=== PATIENT | male | born 1945 | race Caucasian/White ===

== ENCOUNTER 2016-07-12 13:11 | Outpatient (CLI) | payer MEDICARE | END 2016-07-12 13:12 | disposition home or self-care (01) | DX: L03.115 Cellulitis of right lower limb (principal) ==

== ENCOUNTER 2016-07-19 | Outpatient (CLI) | payer MEDICARE | END 2016-07-19 11:43 | disposition critical access hospital (66) | DX: M79.661 Pain in right lower leg (principal) | CPT/HCPCS: A0425; A0429 ==

== ENCOUNTER 2016-07-19 12:03 | Inpatient (IN) | payer MEDICARE ==
[2016-07-19] MEDS ORDERED: HYDROmorphone 1 MG/ML SYRINGE IVP STA (12:33)
[2016-07-19] MEDS ORDERED: PIPERACILLIN/TAZOBACTAM 4.5 GM in SODIUM CHLORIDE 0.9% MINIBAG 100 ML IV STA (12:33)
[2016-07-19] MEDS ORDERED: VANCOMYCIN INJ 1 GM in SODIUM CHLORIDE 0.9% 250 ML IV STA (12:33)
[2016-07-19] MEDS ORDERED: HYDROmorphone 1 MG/ML SYRINGE ONE (12:39)
[2016-07-19] MEDS ORDERED: VANCOMYCIN 1 GM VIAL ONE ×2 (12:40→12:53)
[2016-07-19] MEDS ORDERED: IOPAMIDOL-300 100 ML VIAL IVP ONE (15:45)
[2016-07-19] MEDS ORDERED: PROCHLORPERAZINE 10 MG/2 ML VIAL IVP PRN (16:52)
[2016-07-19] MEDS ORDERED: oxyCODONE 5 MG TABLET PO PRN ×2 (16:52)
[2016-07-19] MEDS ORDERED: ONDANSETRON 4 MG/2 ML VIAL IVP PRN (16:52)
[2016-07-19] MEDS ORDERED: ACETAMINOPHEN 325 MG TABLET PO PRN (16:52)
[2016-07-19] MEDS ORDERED: SODIUM CHLORIDE FLUSH 0.9% 10 ML SYRINGE IVP PRN (16:52)
[2016-07-19] MEDS ORDERED: VANCOMYCIN INJ 1 GM in SODIUM CHLORIDE 0.9% 250 ML IV SCH (18:30)
[2016-07-19] MEDS ORDERED: POTASSIUM CHLORIDE 20 MEQ TABLET PO SCH (21:00)
[2016-07-19] MEDS: FUROSEMIDE 100 MG/10 ML VIAL IVP SCH (21:25)
[2016-07-19] MEDS: PIPERACILLIN/TAZOBACTAM 3.375 GM in SODIUM CHLORIDE 0.9% MINIBAG 100 ML IV SCH (21:25)
[2016-07-19] MEDS: CARVEDILOL 3.125 MG TABLET PO SCH (21:25)
[2016-07-19] MEDS: SODIUM CHLORIDE FLUSH 0.9% 10 ML SYRINGE IVP SCH (21:26)
[2016-07-19] MEDS: POTASSIUM CHLORIDE 20 MEQ TABLET PO SCH (23:05)
[2016-07-20] MEDS: PIPERACILLIN/TAZOBACTAM 3.375 GM in SODIUM CHLORIDE 0.9% MINIBAG 100 ML IV SCH ×4 (01:51→21:05)
[2016-07-20] MEDS: SODIUM CHLORIDE FLUSH 0.9% 10 ML SYRINGE IVP SCH ×3 (01:52→21:05)
[2016-07-20] MEDS: VANCOMYCIN INJ 1.75 GM in SODIUM CHLORIDE 0.9% 500 ML IV SCH ×2 (03:43→16:19)
[2016-07-20] MEDS: PANTOPRAZOLE 40 MG TABLET PO SCH (06:09)
[2016-07-20] MEDS: ENOXAPARIN 40 MG/0.4 ML SYRINGE SUBQ SCH (07:28)
[2016-07-20] MEDS ORDERED: ASPIRIN EC 325 MG TABLET PO SCH (09:00)
[2016-07-20] MEDS ORDERED: ALLOPURINOL 100 MG TABLET PO SCH (09:00)
[2016-07-20] MEDS ORDERED: LOSARTAN 50 MG TABLET PO SCH (09:00)
[2016-07-20] MEDS ORDERED: SPIRONOLACTONE 25 MG TABLET PO SCH (09:00)
[2016-07-20] MEDS: FUROSEMIDE 100 MG/10 ML VIAL IVP SCH ×2 (09:03→21:05)
[2016-07-20] MEDS: CARVEDILOL 3.125 MG TABLET PO SCH (09:04)
[2016-07-20] MEDS: POTASSIUM CHLORIDE 20 MEQ TABLET PO SCH ×2 (10:21→16:18)
[2016-07-20] MEDS: ASPIRIN EC 325 MG TABLET PO SCH (10:22)
[2016-07-20] MEDS: POLYETHYLENE GLYCOL 3350 17 GM PACKET PO SCH (10:22)
[2016-07-20] MEDS: LOSARTAN 50 MG TABLET PO SCH (10:22)
[2016-07-20] MEDS: ALLOPURINOL 100 MG TABLET PO SCH (10:22)
[2016-07-20] MEDS: HYDROcod/ACETAM 7.5 MG/325 MG TABLET PO PRN (10:23)
[2016-07-20] MEDS: SPIRONOLACTONE 25 MG TABLET PO SCH (10:23)
[2016-07-21] MEDS: PIPERACILLIN/TAZOBACTAM 3.375 GM in SODIUM CHLORIDE 0.9% MINIBAG 100 ML IV SCH ×4 (01:47→21:15)
[2016-07-21] MEDS: HYDROcod/ACETAM 7.5 MG/325 MG TABLET PO PRN ×3 (01:47→18:23)
[2016-07-21] MEDS: SODIUM CHLORIDE FLUSH 0.9% 10 ML SYRINGE IVP SCH ×3 (01:48→21:15)
[2016-07-21] MEDS: VANCOMYCIN INJ 1.75 GM in SODIUM CHLORIDE 0.9% 500 ML IV SCH (03:41)
[2016-07-21] MEDS: PANTOPRAZOLE 40 MG TABLET PO SCH (06:04)
[2016-07-21] MEDS: FUROSEMIDE 100 MG/10 ML VIAL IVP SCH (08:22)
[2016-07-21] MEDS: SIMETHICONE 40 MG/0.6 ML 30 ML BOTTLE PO PRN ×2 (08:31→17:34)
[2016-07-21] MEDS: ALLOPURINOL 100 MG TABLET PO SCH (10:31)
[2016-07-21] MEDS: LOSARTAN 50 MG TABLET PO SCH (10:32)
[2016-07-21] MEDS: ASPIRIN EC 325 MG TABLET PO SCH (10:32)
[2016-07-21] MEDS: SPIRONOLACTONE 25 MG TABLET PO SCH (10:35)
[2016-07-21] MEDS: POLYETHYLENE GLYCOL 3350 17 GM PACKET PO SCH (10:36)
[2016-07-21] MEDS: POTASSIUM CHLORIDE 20 MEQ TABLET PO SCH ×2 (10:36→17:34)
[2016-07-21] MEDS: ENOXAPARIN 40 MG/0.4 ML SYRINGE SUBQ SCH (10:39)
[2016-07-21] MEDS: MORPHINE 2 MG/ML SYRINGE IVP PRN (14:15)
[2016-07-22] MEDS: PIPERACILLIN/TAZOBACTAM 3.375 GM in SODIUM CHLORIDE 0.9% MINIBAG 100 ML IV SCH ×3 (01:08→13:35)
[2016-07-22] MEDS: MORPHINE 2 MG/ML SYRINGE IVP PRN (05:55)
[2016-07-22] MEDS: HYDROcod/ACETAM 7.5 MG/325 MG TABLET PO PRN ×2 (06:00→18:05)
[2016-07-22] MEDS: PANTOPRAZOLE 40 MG TABLET PO SCH (06:02)
[2016-07-22] MEDS: SODIUM CHLORIDE FLUSH 0.9% 10 ML SYRINGE IVP SCH ×3 (06:22→21:06)
[2016-07-22] MEDS: ENOXAPARIN 40 MG/0.4 ML SYRINGE SUBQ SCH (07:41)
[2016-07-22] MEDS: POLYETHYLENE GLYCOL 3350 17 GM PACKET PO SCH (08:14)
[2016-07-22] MEDS: ALLOPURINOL 100 MG TABLET PO SCH (08:15)
[2016-07-22] MEDS: LOSARTAN 50 MG TABLET PO SCH (08:16)
[2016-07-22] MEDS: ASPIRIN EC 325 MG TABLET PO SCH (08:16)
[2016-07-22] MEDS: SPIRONOLACTONE 25 MG TABLET PO SCH (08:17)
[2016-07-22] MEDS: POTASSIUM CHLORIDE 20 MEQ TABLET PO SCH ×2 (08:18→16:26)
[2016-07-22] MEDS ORDERED: FUROSEMIDE 100 MG/10 ML VIAL IVP SCH (09:00)
[2016-07-22] MEDS ORDERED: MORPHINE 10 MG/ML VIAL IM STA (11:43)
[2016-07-22] MEDS ORDERED: oxyCODONE 5 MG TABLET PO SCH (12:00)
[2016-07-22] MEDS: SIMETHICONE 40 MG/0.6 ML 30 ML BOTTLE PO PRN ×2 (12:27→18:05)
[2016-07-22] MEDS ORDERED: SILVER SULFADIAZINE CREAM 25 GM TUBE TOP SCH (21:00)
[2016-07-23] MEDS: ENOXAPARIN 40 MG/0.4 ML SYRINGE SUBQ SCH (07:01)
[2016-07-23] MEDS: PANTOPRAZOLE 40 MG TABLET PO SCH (07:04)
[2016-07-23] MEDS: SODIUM CHLORIDE FLUSH 0.9% 10 ML SYRINGE IVP SCH (07:05)
[2016-07-23] MEDS: HYDROcod/ACETAM 7.5 MG/325 MG TABLET PO PRN (07:54)
[2016-07-23] MEDS: SPIRONOLACTONE 25 MG TABLET PO SCH (08:11)
[2016-07-23] MEDS: ASPIRIN EC 325 MG TABLET PO SCH (08:11)
[2016-07-23] MEDS: ALLOPURINOL 100 MG TABLET PO SCH (08:12)
[2016-07-23] MEDS: LOSARTAN 50 MG TABLET PO SCH (08:12)
[2016-07-23] MEDS: POTASSIUM CHLORIDE 20 MEQ TABLET PO SCH (08:12)
[2016-07-23] MEDS: POLYETHYLENE GLYCOL 3350 17 GM PACKET PO SCH (08:15)
[2016-07-23] MEDS ORDERED: HYDROcod/ACETAM 7.5 MG/325 MG TABLET PO PRN (10:31)
[2016-07-23] MEDS ORDERED: LINEZOLID 600 MG TABLET PO SCH ×2 (11:00→13:30)
[2016-07-23] MEDS: SIMETHICONE 40 MG/0.6 ML 30 ML BOTTLE PO PRN (13:19)
== END 2016-07-23 17:15 | disposition home or self-care (01) | DRG 603 ==
DX: L03.119 Cellulitis of unspecified part of limb (principal); L03.115 Cellulitis of right lower limb; E87.1 Hypo-osmolality and hyponatremia; I13.0 Hypertensive heart and chronic kidney disease with heart failure and stage 1 through stage 4 chronic kidney disease, or unspecified chronic kidney disease; I73.9 Peripheral vascular disease, unspecified; I11.0 Hypertensive heart disease with heart failure; Z68.42 Body mass index [BMI] 45.0-49.9, adult; L03.116 Cellulitis of left lower limb; I50.9 Heart failure, unspecified; N18.9 Chronic kidney disease, unspecified; N40.0 Benign prostatic hyperplasia without lower urinary tract symptoms; I25.2 Old myocardial infarction; E66.01 Morbid (severe) obesity due to excess calories; M10.9 Gout, unspecified; Z22.39 Carrier of other specified bacterial diseases; Z79.82 Long term (current) use of aspirin; I87.8 Other specified disorders of veins; N40.1 Benign prostatic hyperplasia with lower urinary tract symptoms; N39.498 Other specified urinary incontinence; R33.8 Other retention of urine

== ENCOUNTER 2016-07-29 14:25 | Outpatient (CLI) | payer MEDICARE | END 2016-07-29 14:26 | disposition home or self-care (01) | DX: S81.802A Unspecified open wound, left lower leg, initial encounter (principal) ==

== ENCOUNTER 2016-08-20 10:15 | Outpatient (CLI) | payer MEDICARE | END 2016-08-20 10:16 | disposition home or self-care (01) | DX: Z51.5 Encounter for palliative care (principal); I13.0 Hypertensive heart and chronic kidney disease with heart failure and stage 1 through stage 4 chronic kidney disease, or unspecified chronic kidney disease; N18.9 Chronic kidney disease, unspecified; I50.9 Heart failure, unspecified; G89.29 Other chronic pain; I83.008 Varicose veins of unspecified lower extremity with ulcer other part of lower leg; L97.811 Non-pressure chronic ulcer of other part of right lower leg limited to breakdown of skin; L97.821 Non-pressure chronic ulcer of other part of left lower leg limited to breakdown of skin; B37.2 Candidiasis of skin and nail; I48.91 Unspecified atrial fibrillation; F32.9 Major depressive disorder, single episode, unspecified; R05 Cough; E66.01 Morbid (severe) obesity due to excess calories; I73.9 Peripheral vascular disease, unspecified; I25.2 Old myocardial infarction; Z96.0 Presence of urogenital implants; Z79.82 Long term (current) use of aspirin; Z91.81 History of falling ==

== ENCOUNTER 2016-08-20 10:45 | Outpatient (CLI) | payer MEDICARE | END 2016-08-20 10:46 | disposition home or self-care (01) | DX: S81.802A Unspecified open wound, left lower leg, initial encounter (principal) ==

== ENCOUNTER 2016-08-23 12:08 | Outpatient (CLI) | payer MEDICARE | END 2016-08-23 12:09 | disposition home or self-care (01) | DX: N39.0 Urinary tract infection, site not specified (principal) ==

== ENCOUNTER 2016-08-30 08:00 | Outpatient (CLI) | payer MEDICARE | END 2016-08-30 08:01 | DX: L03.115 Cellulitis of right lower limb (principal) ==

== ENCOUNTER 2016-08-30 10:45 | Day surgery (SDC) | payer MEDICARE ==
[2016-08-30] MEDS ORDERED: cefTRIAXone 2 GM VIAL ONE (12:15)
== END 2016-08-30 10:46 | disposition home or self-care (01) ==
PROC: 02HV33Z Insertion of Infusion Device into Superior Vena Cava, Percutaneous Approach (ICD-10-PCS; principal; 2016-08-30 11:00)
DX: L03.116 Cellulitis of left lower limb (principal)
CPT/HCPCS: 36569; C1751

== ENCOUNTER 2016-09-06 11:45 | Outpatient (CLI) | payer MEDICARE | END 2016-09-06 11:46 | disposition home or self-care (01) | DX: L03.115 Cellulitis of right lower limb (principal) ==

== ENCOUNTER 2016-09-08 15:05 | Outpatient (CLI) | payer MEDICARE | END 2016-09-08 15:06 | DX: N39.0 Urinary tract infection, site not specified (principal) ==

== ENCOUNTER 2016-09-09 11:00 | Outpatient (CLI) | payer MEDICARE | END 2016-09-09 23:59 | DX: Z51.5 Encounter for palliative care (principal); I50.9 Heart failure, unspecified; I42.9 Cardiomyopathy, unspecified; R06.01 Orthopnea; M25.511 Pain in right shoulder; G89.29 Other chronic pain; M15.0 Primary generalized (osteo)arthritis; B37.2 Candidiasis of skin and nail; F43.21 Adjustment disorder with depressed mood; E66.01 Morbid (severe) obesity due to excess calories; L03.116 Cellulitis of left lower limb; L03.115 Cellulitis of right lower limb; Z79.891 Long term (current) use of opiate analgesic; I27.2 Other secondary pulmonary hypertension; I48.91 Unspecified atrial fibrillation; N18.9 Chronic kidney disease, unspecified; Z91.81 History of falling; Z96.0 Presence of urogenital implants; I83.009 Varicose veins of unspecified lower extremity with ulcer of unspecified site; L97.909 Non-pressure chronic ulcer of unspecified part of unspecified lower leg with unspecified severity ==

== ENCOUNTER 2016-09-13 15:55 | Outpatient (CLI) | payer MEDICARE | END 2016-09-13 15:56 | DX: L03.115 Cellulitis of right lower limb (principal) ==

== ENCOUNTER 2016-09-15 10:25 | Outpatient (CLI) | payer MEDICARE | END 2016-09-15 10:26 | disposition home or self-care (01) | DX: I51.7 Cardiomegaly (principal); Z95.828 Presence of other vascular implants and grafts ==

== ENCOUNTER 2016-09-20 10:50 | Outpatient (CLI) | payer MEDICARE | END 2016-09-20 23:59 | disposition home or self-care (01) | DX: L03.115 Cellulitis of right lower limb (principal) ==

== ENCOUNTER 2016-09-27 11:21 | Outpatient (CLI) | payer MEDICARE | END 2016-09-27 23:59 | disposition home or self-care (01) | DX: R74.8 Abnormal levels of other serum enzymes (principal); E78.1 Pure hyperglyceridemia; L03.115 Cellulitis of right lower limb; S81.809D Unspecified open wound, unspecified lower leg, subsequent encounter ==

== ENCOUNTER 2016-09-29 08:00 | Outpatient (CLI) | payer MEDICARE ==
[2016-09-29 19:45] LABS: BILIRUBIN,URINE NEGATIVE (NEGATIVE); PH,URINE 5.5 PH (5.0-7.5)
[2016-09-29 20:26] LABS: UA w/ MICROSCOPIC CHARGE YES
[2016-09-29 20:28] LABS: BASOPHILS % (AUTO) 0.6 %; EOSINOPHILS # (AUTO) 0.1 10^3/uL (0.0-0.7); EOSINOPHILS % (AUTO) 1.4 %; HCT - HEMATOCRIT 31.6 % (42.0-52.0); HGB - HEMOGLOBIN 10.2 g/dL (14.0-18.0); LYMPHOCYTES # (AUTO) 0.7 10^3/uL (1.5-3.5); LYMPHOCYTES % (AUTO) 11.1 %; MEAN CORPUSCULAR HEMOGLOBIN 30.7 pg (27.0-31.0); MEAN CORPUSCULAR HGB CONC 32.4 g/dL (32.0-36.0); MEAN CORPUSCULAR VOLUME 94.8 fL (80.0-94.0); MEAN PLATELET VOLUME 10.4 fL (7.4-11.4); MONOCYTES # (AUTO) 0.4 10^3/uL (0.0-1.0); MONOCYTES % (AUTO) 7.4 %; NEUTROPHILS # (AUTO) 4.7 10^3/uL (1.5-6.6); NEUTROPHILS % (AUTO) 79.5 %; RED BLOOD COUNT 3.34 10^6/uL (4.70-6.10); RED CELL DISTRIBUTION WIDTH 18.8 % (12.0-15.0); UNCORRECTED WHITE BLOOD COUNT 5.9 x10^3/uL; WHITE BLOOD COUNT 5.9 x10^3/uL (4.8-10.8)
[2016-09-29 20:31] LABS: UR CULTURE IF IND INDICATED; WBC,URINE 0-3 /HPF (0-3)
== END 2016-09-29 08:01 | disposition home or self-care (01) ==
LOC: LAB.R 08:00
PROVIDERS: ATTEND Family Medicine
DX: L03.115 Cellulitis of right lower limb (principal); N39.0 Urinary tract infection, site not specified
CPT/HCPCS: 81001; 81003; 85025; 85651; 87086

== ENCOUNTER 2016-10-04 14:45 | Outpatient (CLI) | payer MEDICARE | END 2016-10-04 14:46 | disposition home or self-care (01) | DX: L03.115 Cellulitis of right lower limb (principal) ==

== ENCOUNTER 2016-10-07 11:00 | Outpatient (CLI) | payer MEDICARE ==
--- NOTE | 2016-10-11 11:17 | CONSULTATION NOTE ---
DATE OF CONSULTATION: 10/07/2016 00:00:00 REQUESTING PROVIDER: Mirza Mcleod MD. TIME OF VISIT 11:15 to 12 noon. TOPIC: Followup palliative care consult. Thank you, Dr. Mcleod, for asking the palliative care consult service to be involved in the care of yo ur patient. I am asked to forward the goals of care discussion and provide support for symptom manage ment. The patient is seen in his home setting secondary to considerable and taxing effort to leave [facility] home related to his fatigue, dyspnea, chronic pain, and morbid obesity. BRIEF HISTORY OF PRESENT ILLNESS UPDATE: This is a 71-year-old gentleman who has multiple significant comorbidities continuing to struggle with lower extremity edema, lower extremity wounds that he is n ow on yet another round of antibiotics, Bactrim, for, increasing shortness of breath and dyspnea, dec reased appetite and anorexia, has now acute discomfort in his right shoulder as well as his left. He had on 09/08 injured his right shoulder pulling the recliner lever. This has continued to exacerbate to the point where he is no longer able to lift his arm. The pain is fairly excruciating and he has j ust been to an urgent care visit to the [facility]. They had thought it was most li narciso tendinitis and he is scheduled for a shoulder x-ray, as well as followup with orthopedic surgeon . He remains very reticent to make any kind of changes. This is both financial and also of his nature . 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 He is taking his hydrocodone 10/325 mg 1 tab about every 4-5 hours. At times when it is really acute he takes it more often, but dislikes the activating feeling of confusi on of this side effect. He is hopeful there will be something to offer as far as intervention for his pain, as well as his lack of mobility. He has also started with occupational therapy. The patient also has multiple comorbidities with longstanding chronic kidney disease, congestive hear t failure, atrial fibrillation and all somewhat complicated because of his increasing need for diuret ics. He does have an appointment on 10/[address] Renee. They did not need any further labs or echo . SYMPTOM BURDEN: He continues to rate his pain fairly high 9/10, his fatigue 8/10, still having diffic ulty with appetite and taste changes, continues with dyspnea which is limiting as far as activity, de pression and anxiety scores high and has had intermittent diarrhea versus constipation. CODE STATUS: THE PATIENT REMAINS FULL CODE. PLEASE SEE PALLIATIVE CARE DISCUSSION BELOW. BRIEF SOCIAL HISTORY: The patient is , is attempting to live independently though this is bec oming more complicated. He has hired a new caregiver, but there has been some language difficulties, as well as his concern about cost. He is now getting assistance from the home health aide for bathing . He has recently been in touch with his son who is aware currently of the patient's decline and frag ility. He has very limited support other than the home health nurses who are coming in frequently. He continues to struggle with financial stresses because he has no coverage for medication. REVIEW OF SYSTEMS: HEENT: Reports nasal congestion, frequent nosebleeds at least daily and increased running in the a.m. He has some mild hearing loss. CARDIOVASCULAR: He does have orthopnea and exertional dyspnea, is needing to sleep up in the recliner , not only for managing, but also breathing. RESPIRATORY: Has some intermittent cough, is quite tachypnea at rest. GASTROINTESTINAL: He is morbidly obese. He has had more difficulty with meal prep. He has early satie ty. GENITOURINARY: He has a Lara catheter longstanding colonized. When he starts getting in trouble he h as increased bladder spasms. NEUROLOGIC: He does have intermittent numbness and tingling down his legs, now down his arms, right g reater than left. PSYCHIATRIC: Admits to depression, anxiety and poor quality of life. ENDOCRINE: History of hyperglycemia and hypothyroidism is unclear. HEMATOLOGIC/IMMUNOLOGIC: He is on aspirin. He bruises quite easily, has multiple hematomas, intermitt ent nosebleeds. In the past has had thrombocytopenia and has had frequent infections. Still has a PIC C line and is on currently oral Bactrim. PHYSICAL EXAMINATION: GENERAL APPEARANCE: The patient does appear somewhat sallow and fatigued in appearance. He is tachypn eic. He is quite uncomfortable exhibiting pain behaviors. EYES: With periorbital edema. ENT: Mucous membranes are moist. NECK: Somewhat thickened. Trachea is midline. No JVD. RESPIRATORY: Breath sounds diminished throughout. CARDIOVASCULAR: Temperature is 97.2. ABDOMEN: Quite obese, large pannus. He declined letting me examine his folds. He has currently now re verted back to Zeeshan cream with good results. SKIN: His lower extremities have dressings intact. I have looked at the pictures, they are improving though unfortunately he developed yet another large right lower extremity blister. EXTREMITIES: He does have lower extremity edema, longstanding venous stasis, peripheral artery diseas e. Home health nurses currently providing t.i.d. dressing changes. PALLIATIVE CARE DISCUSSION: Who is present: Myself and the patient. He is currently distressed with h is increased pain, immobility, and difficulty meeting his ADLs. He does feel somewhat overwhelmed as if there is really not a good answer, which I suspect there is not. He has minimal community and soci al support and so continues to struggle with getting his day-to-day needs met. Currently does appear safe though in his current situation. He reports he tends to just "roll with the punches." He perceiv es his situation as "whack a mole" meaning that just as one thing settles down, another something pop s up. He is feeling somewhat distressed as his options are limited and his health problems keep multi plying. He does not want to visit as far as the context of further advanced directives. He has update d his son, Markos Curiel, recently about his current situation. IMPRESSION: This is a 71-year-old gentleman who continues to have somewhat unrealistic expectations a s far as the seriousness of his illness. He remains quite frail and fragile with multiple comorbiditi es, ongoing complications related to his heart failure, wounds and increasing functional decline now complicated by an exacerbation of his right shoulder and left shoulder pain. Will continue to provide conversation regarding quality of life, counseling for depression and anxiety and support transition s of care, different decision points. Currently is unwilling to explore further or different options. RECOMMENTDATIONS/COUNSELING DONE 1. Acute on chronic pain secondary to ongoing progressive degenerative disk disease, as well as an ac chalk[place] right shoulder injury. It will be of interest if he is a candidate for any orthopedic interventio n, but possibly cortisone shots. Unfortunately, because of his weight, living independently, he needs to use his right shoulder and left and makes it more complicated to get his care needs met. He is cu rrently taking the hydrocodone 10 mg 4-5 tabs in 24 hours. Does not like the activating component of this. Did discuss actually methadone given his financial stressors, the acuity of his pain and his di slike of side effects of opioids. Did initiate education regarding this, but the patient remains quit e reticent of making any changes. We did discuss if they were not able to offer further intervention or orthopedic support, that we could revisit this if he was interested. 2. Depression, currently not being treated. The patient is willing to explore his current situation, is reflecting on his current quality of life, is feeling quite overwhelmed. Did introduce the thought of maybe further followup regarding CHRIS even if he did not qualify as far as total support, charlie alfaro at a spend down for further Medicaid support for medications. He again remains reticent to make any changes and does not think he will qualify. Would consider offering CREDIT COLLECTIONS CLERK for follow up. 3. Advanced care planning. He wants to keep his FULL CODE, FULL TREATMENT, but is recognizing the fra gility of his status and his ongoing building healthcare problems. Will continue to revisit this, par ticularly if he transitions into another setting or has another acute hospitalization. TIME SPENT: Forty-five minutes with greater than 50% of this done in counseling and coordination of c are. The patient really uninterested in trying any other pain management options, counseling for depr ession. The patient currently is awaiting the outcome of several specialists to further make decision s about his health care status. Will continues to stay available and see the patient as requested. JOB #: [id number] EXT JOB #:[id number]
== END 2016-10-07 11:01 | disposition home or self-care (01) ==
LOC: PC 11:00
PROVIDERS: ATTEND Nurse Practitioner Adult Health
DX: Z51.5 Encounter for palliative care (principal); G89.29 Other chronic pain; M25.512 Pain in left shoulder; M25.511 Pain in right shoulder; F32.9 Major depressive disorder, single episode, unspecified; R53.83 Other fatigue; R06.00 Dyspnea, unspecified; E66.01 Morbid (severe) obesity due to excess calories; M17.0 Bilateral primary osteoarthritis of knee; N18.9 Chronic kidney disease, unspecified; I50.9 Heart failure, unspecified; I48.91 Unspecified atrial fibrillation; F41.9 Anxiety disorder, unspecified; R19.7 Diarrhea, unspecified; K59.00 Constipation, unspecified; R09.81 Nasal congestion; R04.0 Epistaxis; R05 Cough; R68.81 Early satiety; Z79.82 Long term (current) use of aspirin; R60.0 Localized edema; I87.8 Other specified disorders of veins; I73.9 Peripheral vascular disease, unspecified
CPT/HCPCS: 99349

== ENCOUNTER 2016-10-09 09:31 | Outpatient (CLI) | payer MEDICARE | END 2016-10-09 09:32 | disposition critical access hospital (66) | LOC: EMS 09:31 | PROVIDERS: ATTEND Surgery | DX: S90.521A Blister (nonthermal), right ankle, initial encounter (principal); R04.0 Epistaxis; X58.XXXA Exposure to other specified factors, initial encounter | CPT/HCPCS: A0425; A0429 ==

== ENCOUNTER 2016-10-09 09:51 | Emergency (ER) | payer MEDICARE ==
--- NOTE | 2016-10-09 10:11 | ED Physician Documentation ---
History of Present Illness - Stated complaint Stated Complaint: ANKLE BLISTER/ NOSE BLEED - Chief complaint Chief Complaint: Wound - Additonal information Additional information: hx from pt PMD and home health 71 male long standing infections ajit LE was admitted X 5 days in the last month has home health has a PICC and gets rocephin 2 g QD and bactrim DS PO BID today the bullae on his R medial mall broke open and he was instructed to report to the ER no fever Review of Systems Constitutional: denies: Fever, Chills Cardiac: denies: Chest pain / pressure Respiratory: denies: Dyspnea Skin: reports: Lesions Endocrine: denies: Easy bruising / bleeding Immunocompromised: denies: Immunocompromised PD PAST MEDICAL HISTORY - Past Medical History Cardiovascular: Congestive heart failure, Hypertension, Angina, [place], Atrial fibrillation Derm: Other - Present Medications Home Medications: Ambulatory Orders Medication Instructions Recorded Confirmed Allopurinol [Zyloprim] 300 mg PO DAILY 10/09/16 10/09/16 Aspirin 325 mg PO DAILY 10/09/16 10/09/16 Furosemide [Lasix] 80 mg PO DAILY 10/09/16 10/09/16 Losartan Potassium 25 mg PO BID 10/09/16 10/09/16 Potassium Chloride [Klor-Con M20] 20 meq PO BID 10/09/16 10/09/16 Spironolactone 100 mg PO DAILY 10/09/16 10/09/16 - Allergies Allergies/Adverse Reactions: Allergies Allergy/AdvReac Type Severity Reaction Status Date / Time Unable to Assess Allergy Verified 10/09/16 10:09 - Social History Does the pt smoke?: No Smoking Status: Never smoker Does the pt drink ETOH?: No Does the pt have substance abuse?: No - Immunizations Immunizations are current?: Yes PD ED PE NORMAL - Vitals Vital signs reviewed: Yes - Cardiac Cardiac: RRR - Respiratory Respiratory: No respiratory distress, Clear bilaterally - Extremities Extremities: Other (ajit LE edematous with open wounds erythema to medial ankle and foot R LE, both legs warm, large falccid bullae R medial mall draining clear fluid which was cultured) - Neuro Neuro: No motor deficit, No sensory deficit Results - Vitals Vitals: Vital Signs - 24 hr 10/09/16 10/09/16 09:53 10:03 Temperature 36.7 C Heart Rate 88 Respiratory 22 22 Rate Blood Pressure 138/86 H O2 Saturation 97 Oxygen O2 Source Room air PD MEDICAL DECISION MAKING - ED course ED course: pt has a PICC gets IV ab has been admitted for same and is under care of home health for wound care pt does not know what the ER was supposed to add to this care, called home health and there is no one documentation engineer this weekend to discuss the case, called PMD office and covering doc does not know either so cultured drainages (which was clear serous fluid) and rebandaged legs and dced Departure - Departure Disposition: 01 Home, Self Care Clinical Impression: Visit for wound check Condition: Good Follow-Up: Sunil Mcleod MD [Provider Admit Priv/Credential] - Comments: Continue your home IV antibiotics and the wound care provided by home health - the fluid draining from the blister has been cultured and your PMD can check the results which should be available by Tuesday
[2016-10-09 11:10] VITALS: BP 142/62
== END 2016-10-09 11:20 | disposition home or self-care (01) ==
LOC: ED 09:51 → MERGE 09:51 → ED 11:20
DX: L98.9 Disorder of the skin and subcutaneous tissue, unspecified (principal); I11.0 Hypertensive heart disease with heart failure; I50.9 Heart failure, unspecified; I25.2 Old myocardial infarction; I48.91 Unspecified atrial fibrillation
CPT/HCPCS: 87070; 87205; 99282; 99283

== ENCOUNTER 2016-10-11 10:43 | Outpatient (CLI) | payer MEDICARE ==
[2016-10-11 19:51] LABS: ALBUMIN/GLOBULIN RATIO 1.3 (1.0-2.2); BILIRUBIN,TOTAL 0.9 mg/dL (0.2-1.0); CALCIUM 8.9 mg/dL (8.5-10.3); CREATININE 1.9 mg/dL (0.6-1.2); POTASSIUM 5.4 mmol/L (3.5-5.0); TOTAL PROTEIN 7.3 g/dL (6.7-8.2)
[2016-10-11 20:06] LABS: BASOPHILS % (AUTO) 0.8 %; EOSINOPHILS # (AUTO) 0.1 10^3/uL (0.0-0.7); EOSINOPHILS % (AUTO) 1.9 %; HCT - HEMATOCRIT 29.1 % (42.0-52.0); HGB - HEMOGLOBIN 9.5 g/dL (14.0-18.0); LYMPHOCYTES # (AUTO) 0.7 10^3/uL (1.5-3.5); MEAN CORPUSCULAR HEMOGLOBIN 30.9 pg (27.0-31.0); MEAN CORPUSCULAR HGB CONC 32.7 g/dL (32.0-36.0); MEAN CORPUSCULAR VOLUME 94.3 fL (80.0-94.0); MEAN PLATELET VOLUME 10.6 fL (7.4-11.4); MONOCYTES # (AUTO) 0.4 10^3/uL (0.0-1.0); MONOCYTES % (AUTO) 8.9 %; NEUTROPHILS # (AUTO) 3.3 10^3/uL (1.5-6.6); NEUTROPHILS % (AUTO) 73.4 %; NUCLEATED RED BLOOD CELLS AUTO 0.1 /100WBC; RED BLOOD COUNT 3.08 10^6/uL (4.70-6.10); RED CELL DISTRIBUTION WIDTH 18.7 % (12.0-15.0); UNCORRECTED WHITE BLOOD COUNT 4.5 x10^3/uL; WHITE BLOOD COUNT 4.5 x10^3/uL (4.8-10.8)
== END 2016-10-11 23:59 | disposition home or self-care (01) ==
LOC: LAB.R 10:43
PROVIDERS: ATTEND Family Medicine
DX: L03.115 Cellulitis of right lower limb (principal)
CPT/HCPCS: 80053; 85025; 85651

== ENCOUNTER 2016-10-11 12:28 | Outpatient (CLI) | payer MEDICARE ==
--- NOTE | 2016-10-11 19:04 | XRAY Report ---
BILATERAL SHOULDERS, THREE VIEWS: 10/11/2016 CLINICAL HISTORY: A 71-year-old with bicipital tendinitis osteoarthritis involving the shoulders. RIGHT SHOULDER, THREE VIEWS: Moderate degree of osteoarthritis is seen involving the right AC joint. Prominent periarticular spur formation is seen at the right AC joint with a moderate degree of joint space narrowing. Small right subacromial spur is noted. Mild bony eburnation and subchondral cyst formation is seen in and about the greater tuberosity of the right humeral head. These findings are suggestive of impingement syndrome. Right glenohumeral joint appears normal. PICC line is seen in place entering the vascular system via the right antecubital vein and extending into the superior vena cava at its junction with the right atrium. IMPRESSION: 1. MODERATE DEGREE OF OSTEOARTHRITIS OF THE RIGHT AC JOINT. 2. SMALL SUBACROMIAL SPUR IS NOTED IN ASSOCIATION WITH MILD BONY EBURNATION AND SUBCHONDRAL CYST FORMATION INVOLVING THE GREATER TUBEROSITY OF THE RIGHT HUMERAL HEAD. THESE FINDINGS ARE SUGGESTIVE OF IMPINGEMENT SYNDROME. 3. PICC LINE IS SEEN IN PLACE ENTERING THE VASCULAR SYSTEM VIA THE RIGHT ANTECUBITAL VEIN AND HAVING ITS TIP EXTENDING INTO THE REGION OF THE SUPERIOR VENA CAVA AT ITS JUNCTION WITH THE RIGHT ATRIUM. LEFT SHOULDER, THREE VIEWS: Moderate degree of osteoarthritis is seen involving the left AC joint. Moderate degree of joint space narrowing is noted with associated mild periarticular spur formation. Prominent subacromial spur is noted in association with sclerosis. There is also either prominent spurring extending from the lateral aspect of the acromion or myositis ossificans within the adjacent soft tissues silhouetting the lateral aspect of the left humeral head and adjacent superior aspect of the greater tuberosity. There is prominent associated bony eburnation along the lateral aspect of the greater tuberosity. There is also decreased distance between the left humeral head and the acromion in association with minimal superior subluxation of the left humeral head. Combination of findings is consistent with plain film eminence of chronic left rotator cuff tear. IMPRESSION: 1. MODERATE DEGREE OF OSTEOARTHRITIS IS NOTED INVOLVING THE LEFT AC JOINT. 2. EXTREMELY PROMINENT LEFT SUBACROMIAL SPUR. THERE IS ALSO EITHER A PROMINENT LATERAL SPUR EXTENDING FROM THE ACROMION AND/OR MYOSITIS OSSIFICANS WITHIN THE ADJACENT SOFT TISSUES. 3. SIGNIFICANT DECREASED DISTANCE BETWEEN THE LEFT HUMERAL HEAD AND ACROMION WITH MILD SUPERIOR SUBLUXATION OF THE LEFT HUMERAL HEAD. FINDINGS ARE INDIRECT SIGNS OF CHRONIC LEFT ROTATOR CUFF TEAR. JOB #: [id number] EXT JOB #: [id number] MISSY
== END 2016-10-11 12:29 | disposition home or self-care (01) ==
LOC: DI 12:28
PROVIDERS: ATTEND Family Medicine
DX: M19.011 Primary osteoarthritis, right shoulder (principal); M19.012 Primary osteoarthritis, left shoulder; M85.411 Solitary bone cyst, right shoulder; M25.711 Osteophyte, right shoulder; S43.002A Unspecified subluxation of left shoulder joint, initial encounter; M25.712 Osteophyte, left shoulder; L03.115 Cellulitis of right lower limb
CPT/HCPCS: 80053; 85025; 85651

== ENCOUNTER 2016-10-19 08:00 | Outpatient (CLI) | payer MEDICARE ==
[2016-10-19 19:20] LABS: BASOPHILS % (AUTO) 0.7 %; EOSINOPHILS # (AUTO) 0.1 10^3/uL (0.0-0.7); EOSINOPHILS % (AUTO) 2.6 %; HGB - HEMOGLOBIN 9.9 g/dL (14.0-18.0); LYMPHOCYTES # (AUTO) 0.6 10^3/uL (1.5-3.5); LYMPHOCYTES % (AUTO) 12.3 %; MEAN CORPUSCULAR HEMOGLOBIN 31.7 pg (27.0-31.0); MEAN CORPUSCULAR VOLUME 93.3 fL (80.0-94.0); MEAN PLATELET VOLUME 9.8 fL (7.4-11.4); MONOCYTES # (AUTO) 0.4 10^3/uL (0.0-1.0); MONOCYTES % (AUTO) 8.4 %; RED BLOOD COUNT 3.11 10^6/uL (4.70-6.10); RED CELL DISTRIBUTION WIDTH 18.1 % (12.0-15.0); UNCORRECTED WHITE BLOOD COUNT 5.3 x10^3/uL; WHITE BLOOD COUNT 5.3 x10^3/uL (4.8-10.8)
[2016-10-19 19:26] LABS: BILIRUBIN,TOTAL 0.9 mg/dL (0.2-1.0); CALCIUM 9.2 mg/dL (8.5-10.3); CREATININE 1.4 mg/dL (0.6-1.2); POTASSIUM 4.9 mmol/L (3.5-5.0); TOTAL PROTEIN 7.5 g/dL (6.7-8.2)
== END 2016-10-19 08:01 | disposition home or self-care (01) ==
LOC: LAB.R 08:00
PROVIDERS: ATTEND Family Medicine
DX: L03.115 Cellulitis of right lower limb (principal)
CPT/HCPCS: 80053; 85025; 85651

== ENCOUNTER 2016-11-01 10:43 | Outpatient (CLI) | payer MEDICARE | END 2016-11-01 10:44 | disposition home or self-care (01) | LOC: LAB.R 10:43 | PROVIDERS: ATTEND Family Medicine | DX: S81.809D Unspecified open wound, unspecified lower leg, subsequent encounter (principal) | CPT/HCPCS: 87070; 87077; 87205 ==

== ENCOUNTER 2016-11-26 12:23 | Outpatient (CLI) | payer MEDICARE | END 2016-11-26 12:24 | disposition critical access hospital (66) | DX: S51.802A Unspecified open wound of left forearm, initial encounter (principal); W22.8XXA Striking against or struck by other objects, initial encounter; Y92.030 Kitchen in apartment as the place of occurrence of the external cause | CPT/HCPCS: A0425; A0429 ==

== ENCOUNTER 2016-11-26 12:48 | Emergency (ER) | payer MEDICARE ==
[2016-11-26] MEDS ORDERED: LIDOCAINE-EPINEPH-TETRACAINE 3 ML SYRINGE TOP ONE (13:31)
[2016-11-26] MEDS ORDERED: TETANUS/DIPHTHERIA/PERTUSSIS 0.5 ML SYRINGE IM ONE ×2 (13:37→14:00)
--- NOTE | 2016-11-26 13:38 | ED Physician Documentation ---
PD HPI UPPER EXT INJURY - Stated complaint Stated Complaint: WOUND - Chief complaint Chief Complaint: Ext Problem - History obtained from History obtained from: Patient, EMS - History of Present Illness Location: Other (Sustained a skin tear to left forearm yesterday which continued to ooze and bleeding got worse as far as pain goes today when it was redressed by home health. Tetanus is unknown.) Review of Systems Constitutional: denies: Fever, Chills GI: denies: Abdominal Pain, Nausea, Vomiting Musculoskeletal: denies: Neck pain, Back pain PD PAST MEDICAL HISTORY - Past Medical History Past Medical History: Yes Cardiovascular: Atrial fibrillation, [place], Angina, Congestive heart failure, Peripheral Vascular Disease, Hypertension Endocrine/Autoimmune: None GI: None : Chronic bladder infection, Indwelling catheter HEENT: Glaucoma Psych: None Musculoskeletal: Rheumatoid arthritis, Gout, Fatigue Derm: Other - Past Surgical History Past Surgical History: Yes HEENT: Cataracts - Present Medications Home Medications: Ambulatory Orders Medication Instructions Recorded Confirmed Allopurinol 300 mg PO DAILY 09/22/12 11/26/16 Potassium Chloride 20 meq PO BID 01/26/16 11/26/16 Spironolactone 100 mg PO DAILY 01/26/16 11/26/16 Hydrocodone/Acetaminophen 2 tab PO TID 07/20/16 11/26/16 [Hydrocodon-Acetaminophn 10-325] Furosemide [Lasix] 80 mg PO DAILY 10/09/16 11/26/16 Potassium Chloride [Klor-Con M20] 20 meq PO BID 10/09/16 11/26/16 - Allergies Allergies/Adverse Reactions: Allergies Allergy/AdvReac Type Severity Reaction Status Date / Time nitrofurantoin Allergy Mild Rash Verified 07/19/16 12:05 lorazepam Allergy Unknown UNKNOWN Verified 07/19/16 12:05 cephalexin monohydrate * Allergy Hives Verified 07/19/16 12:05 [From Keflex] - Social History Does the pt smoke?: No Smoking Status: Never smoker Does the pt drink ETOH?: No Does the pt have substance abuse?: No - Immunizations Immunizations are current?: Yes - POLST Patient has POLST: Yes PD ED PE NORMAL - Vitals Vital signs reviewed: Yes - General General: Alert and oriented X 3, No acute distress - Extremities Extremities: Other (There is a jagged but very shallow skin tear to the posterior left mid forearm without underlying bony tenderness or limited range of motion. 2 syringes of lidocaine/epinephrine/tetracaine were used during examination for pain control.) - Neuro Neuro: Alert and oriented X 3, Normal speech - Psych Psych: Normal mood, Normal affect Results - Vitals Vitals: Vital Signs - 24 hr 11/26/16 11/26/16 12:48 14:37 Temperature 36.2 C L Heart Rate 75 74 Respiratory 18 18 Rate Blood Pressure 125/56 L 133/58 H O2 Saturation 100 99 Oxygen O2 Source Room air Departure - Departure Disposition: 01 Home, Self Care Clinical Impression: Skin tear of left forearm without complication Qualifiers: Encounter type: initial encounter Qualified Code(s): S51.812A - Laceration without foreign body of left forearm, initial encounter Condition: Good Record reviewed to determine appropriate education?: Yes Instructions: ED Laceration Ext Sutr Stap Tape Comments: Keep current dressing on until home health can address it again on Tuesday. Discharge Date/Time: 11/26/16 14:44
[2016-11-26 14:37] VITALS: BP 133/58
== END 2016-11-26 14:44 | disposition home or self-care (01) ==
LOC: EDUNIT# → ED 12:48
DX: S51.812A Laceration without foreign body of left forearm, initial encounter (principal); Z23 Encounter for immunization; I25.2 Old myocardial infarction; I50.9 Heart failure, unspecified; I48.91 Unspecified atrial fibrillation; I11.0 Hypertensive heart disease with heart failure; M10.9 Gout, unspecified
CPT/HCPCS: 90471; 99283

== ENCOUNTER 2016-12-01 14:45 | Outpatient (CLI) | payer MEDICARE ==
[2016-12-01 19:42] LABS: BILIRUBIN,URINE NEGATIVE (NEGATIVE)
[2016-12-01 19:52] LABS: UA w/ MICROSCOPIC CHARGE YES
[2016-12-01 20:57] LABS: WBC,URINE >25 /HPF (0-3)
[2016-12-01 20:58] LABS: UR CULTURE IF IND NOT INDICATED
== END 2016-12-01 14:46 | disposition home or self-care (01) ==
LOC: LAB.R 14:45
PROVIDERS: ATTEND Family Medicine
DX: N39.0 Urinary tract infection, site not specified (principal)
CPT/HCPCS: 81001; 81003; 87086

== ENCOUNTER 2016-12-03 10:45 | Outpatient (CLI) | payer MEDICARE | END 2016-12-03 10:46 | disposition home or self-care (01) | LOC: LAB.R 10:45 | PROVIDERS: ATTEND Family Medicine | DX: N39.0 Urinary tract infection, site not specified (principal) | CPT/HCPCS: 87077; 87086 ==

== ENCOUNTER 2016-12-05 16:05 | Outpatient (CLI) | payer MEDICARE | END 2016-12-05 16:06 | disposition EMS.NT | LOC: EMS 16:05 | PROVIDERS: ATTEND Surgery | DX: Z03.89 Encounter for observation for other suspected diseases and conditions ruled out (principal); W18.39XA Other fall on same level, initial encounter; Y92.031 Bathroom in apartment as the place of occurrence of the external cause ==

== ENCOUNTER 2016-12-09 08:20 | Outpatient (CLI) | payer MEDICARE | END 2016-12-09 08:21 | disposition home or self-care (01) | LOC: DI 08:20 | PROVIDERS: ATTEND Internal Medicine Cardiovascular Disease | DX: R60.0 Localized edema (principal); R06.09 Other forms of dyspnea; I42.9 Cardiomyopathy, unspecified; I08.1 Rheumatic disorders of both mitral and tricuspid valves; I77.810 Thoracic aortic ectasia | CPT/HCPCS: 93306 ==

== ENCOUNTER 2016-12-22 08:00 | Outpatient (CLI) | payer MEDICARE ==
[2016-12-22 18:54] LABS: BILIRUBIN,URINE NEGATIVE (NEGATIVE); PH,URINE 5.5 PH (5.0-7.5)
[2016-12-22 18:55] LABS: UA w/ MICROSCOPIC CHARGE YES
[2016-12-22 19:09] LABS: UR CULTURE IF IND INDICATED
== END 2016-12-22 08:01 | disposition home or self-care (01) ==
LOC: LAB.R 08:00
PROVIDERS: ATTEND Family Medicine
DX: N39.0 Urinary tract infection, site not specified (principal)
CPT/HCPCS: 81001; 81003; 87077; 87086

== ENCOUNTER 2016-12-24 17:17 | Outpatient (CLI) | payer MEDICARE | END 2016-12-24 17:18 | disposition critical access hospital (66) | LOC: EMS 17:17 | PROVIDERS: ATTEND Surgery | DX: H53.2 Diplopia (principal); R53.1 Weakness | CPT/HCPCS: A0425; A0429 ==

== ENCOUNTER 2016-12-24 17:45 | Emergency (ER) | payer MEDICARE ==
[2016-12-24 18:39] LABS: BILIRUBIN,URINE NEGATIVE (NEGATIVE); PH,URINE 6.5 PH (5.0-7.5)
[2016-12-24 18:40] LABS: UA w/ MICROSCOPIC CHARGE YES
[2016-12-24 18:49] LABS: UR CULTURE IF IND INDICATED; WBC,URINE >25 /HPF (0-3)
[2016-12-24] MEDS ORDERED: AMOX/CLAV 875 MG/125 MG TABLET PO STA (19:05)
--- NOTE | 2016-12-24 19:07 | ED Physician Documentation ---
History of Present Illness - Stated complaint Stated Complaint: UTI, DOUBLE VISION - Chief complaint Chief Complaint: General - History obtained from History obtained from: Patient, EMS - History of Present Illness Timing: Other (71-year-old gentleman with chronic indwelling Lara catheter presents with cloudy urine and difficulty keeping his clot catheter clear recently. He had an outpatient culture showing Proteus mirabilis 2 days ago. Also 3 weeks ago he fell and hit his right buttock and has persistent pain there. He is able to walk and bear weight.) Review of Systems Constitutional: reports: Chills. denies: Fever Cardiac: denies: Chest pain / pressure, Palpitations Respiratory: denies: Dyspnea, Cough GI: denies: Abdominal Pain, Nausea, Vomiting PD PAST MEDICAL HISTORY - Past Medical History Cardiovascular: Atrial fibrillation, CT, Angina, Congestive heart failure, Peripheral Vascular Disease, Hypertension Endocrine/Autoimmune: None GI: None : Chronic bladder infection, Indwelling catheter HEENT: Glaucoma Psych: None Musculoskeletal: Rheumatoid arthritis, Gout, Fatigue Derm: Other - Past Surgical History Past Surgical History: Yes HEENT: Cataracts - Present Medications Home Medications: Ambulatory Orders Medication Instructions Recorded Confirmed Allopurinol 300 mg PO DAILY 09/22/12 11/26/16 Potassium Chloride 20 meq PO BID 01/26/16 11/26/16 Spironolactone 100 mg PO DAILY 01/26/16 11/26/16 Hydrocodone/Acetaminophen 2 tab PO TID 07/20/16 11/26/16 [Hydrocodon-Acetaminophn 10-325] Furosemide [Lasix] 80 mg PO DAILY 10/09/16 11/26/16 Potassium Chloride [Klor-Con M20] 20 meq PO BID 10/09/16 11/26/16 Amox/Clav 875/125 [Augmentin] 1 each PO Q12H #14 tablet 12/24/16 - Allergies Allergies/Adverse Reactions: Allergies Allergy/AdvReac Type Severity Reaction Status Date / Time nitrofurantoin Allergy Mild Rash Verified 07/19/16 12:05 lorazepam Allergy Unknown UNKNOWN Verified 07/19/16 12:05 cephalexin monohydrate * Allergy Hives Verified 07/19/16 12:05 [From [facility]] - Social History Does the pt smoke?: No Smoking Status: Never smoker Does the pt drink ETOH?: No Does the pt have substance abuse?: No - Immunizations Immunizations are current?: Yes - POLST Patient has POLST: Yes PD ED PE NORMAL - Vitals Vital signs reviewed: Yes - General General: Alert and oriented X 3, No acute distress - Neck Neck: Supple, no meningeal sign, No bony TTP - Abdomen Abdomen: Soft, Non tender - Male Male : Other (Lara in place, urine very mildly cloudy but not opaque.) - Extremities Extremities: Other (There is a lot of soft tissue swelling and buttock tenderness/bruising on the right but he does not have any significant pain with pelvic compression or internal or external rotation of the right hip.) - Neuro Neuro: Alert and oriented X 3, Normal speech - Psych Psych: Normal mood, Normal affect Results - Vitals Vitals: Vital Signs - 24 hr 12/24/16 12/24/16 12/25/16 17:52 23:07 00:36 Temperature 36.9 C 36.2 C L 36.1 C L Heart Rate 78 93 113 H Respiratory 22 18 20 Rate Blood Pressure 102/55 L 113/66 102/59 L O2 Saturation 99 100 97 12/25/16 12/25/16 12/25/16 01:50 03:50 07:26 Temperature Heart Rate 90 71 81 Respiratory 18 18 18 Rate Blood Pressure 90/45 L 102/57 L 120/57 L O2 Saturation 99 100 100 12/25/16 09:55 Temperature 36 C L Heart Rate 80 Respiratory 18 Rate Blood Pressure 132/60 H O2 Saturation 100 Oxygen O2 Source Room air - Labs Labs: Laboratory Tests 12/24/16 12/25/16 12/25/16 18:00 01:06 01:06 WBC 5.9 RBC 2.70 L Hgb 8.3 L Hct 25.6 L MCV 94.8 H MCH 30.8 MCHC 32.5 RDW 18.2 H Plt Count 101 L MPV 9.2 Neut # 4.7 Lymph # 0.6 L Pershing # 0.4 Eos # 0.1 Baso # 0.0 Absolute Nucleated RBC 0.00 Nucleated RBCs 0.0 Sodium 129 L Potassium 5.3 H Chloride 102 Carbon Dioxide 17 L Anion Gap 10.0 BUN 83 H* Creatinine 2.0 H Estimated GFR (MDRD) 33 L Glucose 103 H Lactic Acid Calcium 9.2 Total Bilirubin 1.5 H AST 29 ALT 23 Alkaline Phosphatase 246 H Total Creatine Kinase 52 Total Protein 7.3 Albumin 3.8 Globulin 3.5 Albumin/Globulin Ratio 1.1 Lipase 33 Urine Color YELLOW Urine Clarity SL. CLOUDY Urine pH 6.5 Ur Specific [place] <=1.005 Urine Protein NEGATIVE Urine Glucose (UA) NEGATIVE Urine Ketones NEGATIVE Urine Occult Blood SMALL H Urine Nitrite NEGATIVE Urine Bilirubin NEGATIVE Urine Urobilinogen 0.2 (NORMAL) Ur Leukocyte Esterase LARGE H Urine RBC 0-5 Urine WBC >25 H Ur Squamous Epith Cells FEW Squamous Urine Bacteria Few Urine Casts 0-2 Hyaline Casts Ur Microscopic Review INDICATED Urine Culture Comments INDICATED 12/25/16 01:06 WBC RBC Hgb Hct MCV MCH MCHC RDW Plt Count MPV Neut # Lymph # Pershing # Eos # Baso # Absolute Nucleated RBC Nucleated RBCs Sodium Potassium Chloride Carbon Dioxide Anion Gap BUN Creatinine Estimated GFR (MDRD) Glucose Lactic Acid 0.9 Calcium Total Bilirubin AST ALT Alkaline Phosphatase Total Creatine Kinase Total Protein Albumin Globulin Albumin/Globulin Ratio Lipase Urine Color Urine Clarity Urine pH Ur Specific [place] Urine Protein Urine Glucose (UA) Urine Ketones Urine Occult Blood Urine Nitrite Urine Bilirubin Urine Urobilinogen Ur Leukocyte Esterase Urine RBC Urine WBC Ur Squamous Epith Cells Urine Bacteria Urine Casts Ur Microscopic Review Urine Culture Comments - Rads (name of study) R hip Radiology: EMP read contemporaneously (jessica frias, GABINO) PD MEDICAL DECISION MAKING - ED course ED course: 71yo male with UTI sx and indwelling cath. Had Ucx 2 days ago, reviewed, only PO option (with keflex allergy) is augmentin. Clinically no hip frx, soft tissue contusion. Xray neg. Family called in, there was a concern about his home living situation. He is basically bedbound and at home alone. I offered him hospital observation pending potential placements which she declined and wanted to go home. However after further consideration he agree that he probably cannot go home safely, he will board in the emergency department pending social work/case management assistance in the morning for transport or placement. Departure - Departure Disposition: Home, Self Care Clinical Impression: UTI (urinary tract infection) Qualifiers: Urinary tract infection type: catheter-associated UTI Indwelling urinary catheter type: indwelling urethral catheter Encounter type: initial encounter Qualified Code(s): T83.511A - Infection and inflammatory reaction due to indwelling urethral catheter, initial encounter Contusion, hip Qualifiers: Encounter type: initial encounter Laterality: right Qualified Code(s): S70.01XA - Contusion of right hip, initial encounter Condition: Good Record reviewed to determine appropriate education?: Yes Instructions: CAUTI Catheter Associated, ED Contusion Hip Prescriptions: Amox/Clav 875/125 [Augmentin] 1 each PO Q12H #14 tablet Comments: Recheck with Dr Mcleod next week. Discharge Date/Time: 12/25/16 10:55
[2016-12-24] MEDS ORDERED: HYDROcod/ACETAM 5/325 MG TABLET PO STA ×3 (19:11→23:04)
[2016-12-24] MEDS ORDERED: AMOX/CLAV 875 MG/125 MG TABLET PO ONE (19:17)
[2016-12-24] MEDS ORDERED: HYDROcod/ACETAM 5/325 MG TABLET ONE ×3 (19:18→23:14)
--- NOTE | 2016-12-24 19:53 | XRAY Preliminary Report ---
Exam: XR Hip w/Pelvis 2-3V RT IMPRESSION: Mild bilateral hip degenerative changes. No acute bony abnormality. [facility] SITE ID: [id number]
--- NOTE | 2016-12-24 19:56 | XRAY Report ---
EXAM: RIGHT HIP AND PELVIS RADIOGRAPHY EXAM DATE: 12/24/2016 07:43 PM. HISTORY: Hip inj. COMPARISONS: None. TECHNIQUE: 1 view of the pelvis and 1 view of the hip. FINDINGS: Bones: Normal. No fracture or bone lesion. Joints: Mild bilateral hip joint degenerative changes. Normal alignment. Soft Tissues: Normal. No soft tissue swelling. IMPRESSION: Mild bilateral hip degenerative changes. No acute bony abnormality. [facility] Referring Provider Line: [phone] SITE ID: [id number]
[2016-12-25] MEDS ORDERED: HYDROcod/ACETAM 5/325 MG TABLET PO STA (00:23)
[2016-12-25] MEDS ORDERED: HYDROcod/ACETAM 5/325 MG TABLET ONE (00:32)
[2016-12-25] MEDS ORDERED: HYDROmorphone 1 MG/ML SYRINGE IM STA (01:13)
[2016-12-25 01:16] LABS: BASOPHILS % (AUTO) 0.4 %; EOSINOPHILS # (AUTO) 0.1 10^3/uL (0.0-0.7); EOSINOPHILS % (AUTO) 1.3 %; HCT - HEMATOCRIT 25.6 % (42.0-52.0); HGB - HEMOGLOBIN 8.3 g/dL (14.0-18.0); LYMPHOCYTES # (AUTO) 0.6 10^3/uL (1.5-3.5); LYMPHOCYTES % (AUTO) 9.8 %; MEAN CORPUSCULAR HEMOGLOBIN 30.8 pg (27.0-31.0); MEAN CORPUSCULAR HGB CONC 32.5 g/dL (32.0-36.0); MEAN CORPUSCULAR VOLUME 94.8 fL (80.0-94.0); MEAN PLATELET VOLUME 9.2 fL (7.4-11.4); MONOCYTES # (AUTO) 0.4 10^3/uL (0.0-1.0); MONOCYTES % (AUTO) 7.6 %; NEUTROPHILS # (AUTO) 4.7 10^3/uL (1.5-6.6); NEUTROPHILS % (AUTO) 80.9 %; RED CELL DISTRIBUTION WIDTH 18.2 % (12.0-15.0); UNCORRECTED WHITE BLOOD COUNT 5.9 x10^3/uL; WHITE BLOOD COUNT 5.9 x10^3/uL (4.8-10.8)
[2016-12-25] MEDS ORDERED: HYDROmorphone 1 MG/ML SYRINGE ONE (01:45)
[2016-12-25 01:48] LABS: ALBUMIN/GLOBULIN RATIO 1.1 (1.0-2.2); BILIRUBIN,TOTAL 1.5 mg/dL (0.2-1.0); CALCIUM 9.2 mg/dL (8.5-10.3); POTASSIUM 5.3 mmol/L (3.5-5.0); TOTAL PROTEIN 7.3 g/dL (6.7-8.2)
--- NOTE | 2016-12-25 04:05 | ED Physician Documentation ---
ED Addendum - Addendum Addendum: 12/25/16 04:03 After moving from one bed to a bariatric bed, he said he did rub his gluteal area against the railing and it is hurting more than it was. There is swelling with some tenseness of the tissue and some overlying redness with slight warmth. This seems similar to the description from the prior EDMD. The patient says it is hurting more than it was and was given an extra dose of hydrocodone. To ensure no signs of infection as an alternative, I did check blood counts, CK, lactate and these are all normal. His temperature is normal. He did improve with an extra dose of medication. He did have transient lower blood pressure to 94 systolic after a repeat dose of medicine. However shortly after it was above 100 again and the trend on his blood pressure had been relatively low for the ER stay with 113 systolic being the highest. This point he does not seem to have infection per se and I presume the redness is from the inflammation over the hematoma.
[2016-12-25 10:31] VITALS: BP 132/60
== END 2016-12-25 10:55 | disposition home or self-care (01) ==
LOC: EDUNIT# → ED 17:45
DX: T83.511A Infection and inflammatory reaction due to indwelling urethral catheter, initial encounter (principal); N39.0 Urinary tract infection, site not specified; S70.01XA Contusion of right hip, initial encounter; W01.0XXA Fall on same level from slipping, tripping and stumbling without subsequent striking against object, initial encounter; I48.91 Unspecified atrial fibrillation; I25.2 Old myocardial infarction; I50.9 Heart failure, unspecified; I20.9 Angina pectoris, unspecified; I73.9 Peripheral vascular disease, unspecified; M06.9 Rheumatoid arthritis, unspecified; M10.9 Gout, unspecified
CPT/HCPCS: 36415; 73502; 80053; 81001; 82550; 83605; 83690; 85025; 87077; 87086; 87181; 99284; A9270; 81003

== ENCOUNTER 2016-12-25 10:41 | Outpatient (CLI) | payer MEDICARE | END 2016-12-25 10:42 | disposition home or self-care (01) | LOC: EMS 10:41 | PROVIDERS: ATTEND Surgery | DX: S70.01XA Contusion of right hip, initial encounter (principal); X58.XXXA Exposure to other specified factors, initial encounter | CPT/HCPCS: A0425; A0428 ==

== ENCOUNTER 2017-01-12 14:05 | Outpatient (CLI) | payer MEDICARE ==
[2017-01-12 19:01] LABS: BILIRUBIN,URINE NEGATIVE (NEGATIVE); UA w/ MICROSCOPIC CHARGE YES
[2017-01-12 19:15] LABS: WBC,URINE >25 /HPF (0-3)
[2017-01-12 19:16] LABS: UR CULTURE IF IND NOT INDICATED
== END 2017-01-12 14:06 | disposition home or self-care (01) ==
LOC: LAB.R 14:05
PROVIDERS: ATTEND Family Medicine
DX: N39.0 Urinary tract infection, site not specified (principal)
CPT/HCPCS: 81001; 81003; 87086

== ENCOUNTER 2017-01-31 11:25 | Outpatient (CLI) | payer MEDICARE | END 2017-01-31 11:26 | disposition home or self-care (01) | LOC: LAB.N 11:25 | PROVIDERS: ATTEND Family Medicine | DX: S81.801A Unspecified open wound, right lower leg, initial encounter (principal) | CPT/HCPCS: 87070; 87077; 87205 ==

== ENCOUNTER 2017-02-10 11:15 | Outpatient (CLI) | payer MEDICARE ==
--- NOTE | 2017-02-10 20:27 | CONSULTATION NOTE ---
Palliative Care Follow Up - Referral Referring Provider: Dr. Abdias Mcleod Time of Visit: 11:15-12;15 Referral setting: Home (it is a taxing and considerable effort for the patient to leave the home secondary to wheelchair bound status, dypsnea, and pain) Referral Reason: Acute on chronic shoulder pain - Information Sources Records Reviewed: RN notes reviewed, Old records reviewed History obtained from: Patient Exam limitations: No limitations - History of Present Illness Update Brief HPI Update: This is a 71-year-old gentleman who is quite complex, he suffers from CHF, atrial fib, morbid obesity, hypertension, gout, he has had an indwelling cath for 15 years. He is continuing to have struggles in managing at home, he has home health care support, but is less and less able to meet his own personal care needs. One of his serious complexities is ongoing issues with his lower extremities, he does have a stasis right lower extremity wound, plus intermittent blisters that pop, with history of infections. He currently has 5 ulcers that are being treated. He is being evaluated 03/03 test for suprapubic catheter. I meeting with patient today to follow-up on his acute on chronic pain management. Patient has been quite resistant to changing pain medications. He currently takes hydrocodone 10 mg/325 mg acetaminophen 6 tabs a day. He has been quite perseverant on returning to his baseline pain medication Celebrex 100 mg. His underlying pain though is attributed to rotator cuff damage and bone spurs bilaterally, severe osteoarthritis, and some peripheral neuropathy. He rates his pain 9-10/10 and is getting somewhat desperate, for relief. Social History - Living Situation Living arrangement: At home Living Situation: Alone (this is becoming more problematic; working on [employer] application) Support System: Has son, reports he keeps him update but no other practical support or primary caregiver. Limitations to the person he has hired. Medications/Allergies - Medications Home Medications: Ambulatory Orders Medication Instructions Recorded Confirmed Allopurinol 300 mg PO DAILY 09/22/12 02/12/17 Spironolactone 100 mg PO DAILY 01/26/16 02/12/17 Hydrocodone/Acetaminophen 1 tab PO Q4HR 07/20/16 02/12/17 [Hydrocodon-Acetaminophn 10-325] Furosemide [Lasix] 120 mg PO DAILY 10/09/16 02/12/17 Potassium Chloride [Klor-Con M20] 20 meq PO BID 10/09/16 02/12/17 Amoxicillin 500 mg PO TID 02/12/17 02/12/17 Aspirin [Aspirin EC] 81 mg PO DAILY 02/12/17 02/12/17 Fexofenadine/Pseudoephedrine 180 mg PO DAILY 02/12/17 02/12/17 [Ora-D 24 Hour Tablet] Fluticasone [Flonase] 1 inh INH BID 02/12/17 02/12/17 Loperamide HCl [Imodium A-D] 2 mg PO Q4HR 02/12/17 02/12/17 Losartan [Cozaar] 25 mg PO DAILY 02/12/17 02/12/17 Nitroglycerin [Nitrostat] 0.4 mg PO Q1HR PRN 02/12/17 02/12/17 Polyethylene Glycol 3350 [Miralax] 17 gm PO DAILY PRN 02/12/17 02/12/17 Trazodone HCl 50 mg PO ACHS 02/12/17 02/12/17 - Allergies Allergies/Adverse Reactions: Allergies Allergy/AdvReac Type Severity Reaction Status Date / Time nitrofurantoin Allergy Mild Rash Verified 07/19/16 12:05 lorazepam Allergy Unknown UNKNOWN Verified 07/19/16 12:05 cephalexin monohydrate * Allergy Hives Verified 07/19/16 12:05 [From [facility]] Review of Systems - Constitutional Constitutional: reports: Fatigue, Weakness - Eyes Eyes: denies: Pain, Vision loss - Ears, Nose & Throat Ears, Nose & Throat: reports: Hearing loss - Cardiovascular Cariovascular: reports: Irregular heart rate, Edema, Exertional dyspnea, Decr. exercise tolerance, Orthopnea - Respiratory Respiratory: reports: Cough, Sputum production (clear), SOB at rest, SOB with exertion - Gastrointestinal Gastrointestinal: reports: Abdominal distention, Constipation, Nausea ( intermittent) - Genitourinary Genitourinary: reports: Other (has folley catheter; trying to figure out transportation to make it to urology appointment in [facility]) - Musculoskeletal Musculoskeletal: reports: Muscle pain, Back pain, Muscle aches, Stiffness, Limited range of motion (bilateral shoulders; knees and hips) - Integumentary Integumentary: reports: Dryness, Other (tendency to bleed easily when bumped or injury; Has compressin hose on from HH; finds very uncomfortable the suppport wraps) - Neurological Neurological: reports: General weakness, Memory problems (mild), Other ( wheelchair bound; sleeps in recliner) - Psychiatric Psychiatric: reports: Depression, Anxiety - Hematologic/Lymphatic Hematologic/Lymphatic: reports: Bleeding tendencies (easily bleeds when trauma/ bumps etc.), Recurrent infections (frequent UTIs and wound infections: currently on AB for wound) Physical Examination - Vital Signs Temperature: 98.1 C Pulse Rate: 87 Respiratory Rate: 20 O2 Saturation: 95 Blood Pressure: 122/68 - Physical Exam General Appearance: positive: No acute distress, Other (tearful through whole of visit) Eyes Bilateral: positive: Normal inspection ENT: positive: Dry mucous membranes Neck: positive: No JVD, Trachea midline Respiratory: positive: Breath sounds nml Cardiovascular: positive: Irregularly irregular, Tachycardia, Systolic murmur Abdomen: positive: Nml bowel sounds, Other (large obese abdomen) Skin: positive: Pallor, Dryness, Bruising, Other (easily bruises) Extremities: positive: Pedal edema (improved from baseline with wraps), Other ( right shoulder with droop; limited ROM both sides right greater than lift) Neurologic/Psychiatric: positive: Oriented x3, Weakness, Sensory loss, Depressed mood/affect Palliative Care - POLST Patient has POLST: Yes POLST Status: Full Code Pain: Pain worsening, Location (bilateral shoulder pain; knees), Severity (8-9/ 10), Pattern (persistant, worsens with activity; limited ability to self care; unable to lift arms to assist with tasks) Drowsiness: None Nausea: None Anxiety: Moderate (4-6) Dyspnea: Moderate (4-6) (is not distressful for patient) Anorexia: None Insomnia: Sleeps poorly (attributes to pain) Constipation: No Feelings of wellbeing/Perceived Quality of Life: Worsening (feeling more overwhelmed; pain becoming wearing;presents with symptoms of depression) Performance Status: Patient has had functional decline. He is dependent on his scooter wheelchair to maneuver around the household including use for toileting, access to the bathroom for bathing, and managing in kitchen. Unfortunately with his rotator cuff injuries he is unable to tolerate lifting beyond his midline. He would not be able to manage with a manual wheelchair. His wheelchair is wearing out, he needs better seating for pressure relief given his risk for further skin breakdown. He is working with Dr. Mcleod to obtain new scooter as this 1 is greater than 5 years old. He is no longer able to independently bathe in the shower, he is using home health aide services to meet his bathing needs. Is no longer able to cook for himself, which is complicated his ability to be compliant with low-salt diet. - Palliative Care Discussion: Patient overall receives his quality of life is rapidly deteriorating. He is quite fearful as he continues to lose more more independence. He is in the middle of application for [employer]. Discussion did include willingness to consider new setting, he is actually somewhat interested in assisted living facility. He does perceive at this current time, if he had more support for cooking, personal care, and better pain control he would be better able to manage in his own setting. He does have one son, who is currently pain for [employer], and patient reports he has been in touch regarding his ongoing decline. He is feeling quite hopeless and helpless and worried about the future. When asked about revisiting his POLST, which is still a full code, he remains resistant to this conversation. Did confirm though his goals of care, if he were hospitalized and not able to be turned to somewhat independent level of living, he would not want his life or suffering prolonged. He is quite fearful, that he will end up in the senior living, and perceives this as poor quality of life. Impression and Recommendations - Palliative Care Impression: This is a 75-year-old gentleman who has multiple comorbidities that are impacting both his physical and emotional health. Patient does take time to process, any proposed changes, recommended new pain regimen and treatment for depression. He does demonstrate physical decline, functional decline, and high symptom burden. He does perceive his quality of life as worsening and is feeling somewhat overwhelmed. Recommendations/Counseling Done: 1. Acute on chronic pain. Patient has been perseverating on restarting his Celebrex. He has been advised by to machine cutter, his primary care provider, and myself that the risk outweighs any benefits at this point in time with his underlying cardiac and renal disease. Counseling regarding my concerns, his unrealistic expectations, and barriers he continues to experience in particularly radiate relating to costs. Patient does not have a pharmacy benefit. Reviewed Celebrex was used 3-4 years ago, at that point in time though he has degenerative joint disease, he did not have mechanical rotator cuff tears and bone spurs, and most likely would not meet his expectations as far as pain relief. Counseling regarding recommendation for methadone for his long acting, and use his hydrocodone for breakthrough pain. Had consulted with Dr. Renee, though patient's QTC from 2016 was of concern, she felt this was a minimal risk given patient's need for better pain control. Patient proposed he will think about information presented. Will contact me for changes. Counseling though regarding risks of methadone, need to be adherent to regimen, and will have home health nurses monitoring. 2. Depression without psychotic features. Patient does present with depressive mood, persistent hopelessness, and helplessness. Counseling regarding the benefit of antidepressants as for supplementing coping. Addendum; patient did contact me after visit, agreed to antidepressant, would pursue. Given patient's lack of pharmacy benefit, though I prefer to use an SSRI, will go ahead and order trazodone 50 mg at at bedtime 1 week and increase to 100 mg nightly. This may also supplement his pain regimen. 3. Advanced care planning. Patient is recognizing his overall decline, feels somewhat overwhelmed by his limited options both with social support and financial. Is working with palliative care social services specialist as well as [facility] program. Patient's values include independence. Thank you Dr. Mcleod for asking the palliative care consult service to continue to provide support for your patient. Patient does continue to be resistant to change, but is considering his options. Will continue to work with him as patient allows. Time Spent: Time spent 60 minutes with greater than 50% of this done in counseling regarding risks and benefits of Celebrex, opioid including methadone, management of depression, and anticipatory guidance. Coordination of care with home health clinical staff and follow-up with machine cutter.
== END 2017-02-10 11:16 | disposition home or self-care (01) ==
LOC: PC 11:15
PROVIDERS: ATTEND Nurse Practitioner Adult Health
DX: Z51.5 Encounter for palliative care (principal); G89.29 Other chronic pain; M19.012 Primary osteoarthritis, left shoulder; M19.011 Primary osteoarthritis, right shoulder; M75.102 Unspecified rotator cuff tear or rupture of left shoulder, not specified as traumatic; M75.101 Unspecified rotator cuff tear or rupture of right shoulder, not specified as traumatic; F32.9 Major depressive disorder, single episode, unspecified; Z99.3 Dependence on wheelchair; I11.0 Hypertensive heart disease with heart failure; I50.9 Heart failure, unspecified; I48.91 Unspecified atrial fibrillation; E66.01 Morbid (severe) obesity due to excess calories; Z96.0 Presence of urogenital implants; I83.019 Varicose veins of right lower extremity with ulcer of unspecified site; L97.919 Non-pressure chronic ulcer of unspecified part of right lower leg with unspecified severity; Z79.891 Long term (current) use of opiate analgesic; G62.9 Polyneuropathy, unspecified; Z60.2 Problems related to living alone
CPT/HCPCS: 99350

== ENCOUNTER 2017-02-14 11:38 | Outpatient (CLI) | payer MEDICARE | END 2017-02-14 11:39 | disposition critical access hospital (66) | LOC: EMS 11:38 | PROVIDERS: ATTEND Surgery | DX: S80.821A Blister (nonthermal), right lower leg, initial encounter (principal); X58.XXXA Exposure to other specified factors, initial encounter | CPT/HCPCS: A0425; A0429 ==

== ENCOUNTER 2017-02-14 11:58 | Inpatient (IN) | payer MEDICARE ==
[2017-02-14] MEDS ORDERED: AMPICILLIN/SULBACTAM 3 GM in SODIUM CHLORIDE 0.9% MINIBAG 100 ML IV STA (13:01)
--- NOTE | 2017-02-14 13:05 | ED Physician Documentation ---
PD HPI SKIN - Stated complaint Stated Complaint: - Chief complaint Chief Complaint: Wound - History obtained from History obtained from: Patient, EMS - History of Present Illness Timing - onset: Other (This is a 71-year-old gentleman with morbid obesity and CHF and atrial fibrillation, not currently anticoagulated. He has poor functional status at baseline. He is presenting by him once today more short of breath than usual with a cough, but no fevers. He also has a nonhealing wound to the right lower extremity, cultures from 2 weeks ago were reviewed. He just finished a course of antibiotics., Amoxicillin. He now also has a large new wound without specific trauma to the medial right knee.) Review of Systems Ten Systems: 10 systems reviewed and negative Constitutional: reports: Reviewed and negative Ears: reports: Reviewed and negative Nose: reports: Reviewed and negative Cardiac: reports: Reviewed and negative Respiratory: reports: Dyspnea, Cough PD PAST MEDICAL HISTORY - Past Medical History Past Medical History: Yes Cardiovascular: Atrial fibrillation, [place], Angina, Congestive heart failure, Peripheral Vascular Disease, Hypertension Endocrine/Autoimmune: None GI: None : Chronic bladder infection, Indwelling catheter HEENT: Glaucoma Psych: None Musculoskeletal: Rheumatoid arthritis, Gout, Fatigue Derm: Other - Past Surgical History Past Surgical History: Yes HEENT: Cataracts - Present Medications Home Medications: Ambulatory Orders Medication Instructions Recorded Confirmed Allopurinol 300 mg PO DAILY 09/22/12 02/12/17 Spironolactone 100 mg PO DAILY 01/26/16 02/12/17 Hydrocodone/Acetaminophen 1 tab PO Q4HR 07/20/16 02/12/17 [Hydrocodon-Acetaminophn 10-325] Furosemide [Lasix] 120 mg PO DAILY 10/09/16 02/12/17 Potassium Chloride [Klor-Con M20] 20 meq PO BID 10/09/16 02/12/17 Aspirin [Aspirin EC] 81 mg PO DAILY 02/12/17 02/12/17 Fexofenadine/Pseudoephedrine 180 mg PO DAILY 02/12/17 02/12/17 [Ora-D 24 Hour Tablet] Fluticasone [Flonase] 1 inh INH BID 02/12/17 02/12/17 Losartan [Cozaar] 25 mg PO DAILY 02/12/17 02/12/17 Nitroglycerin [Nitrostat] 0.4 mg PO Q1HR PRN 02/12/17 02/12/17 Trazodone HCl 50 mg PO ACHS 02/12/17 02/12/17 Collagenase Clostridium Hist. 02/14/17 [Santyl] Nystatin [Nystop] 0 gm TOP BID 02/14/17 02/14/17 Silver Sulfadiazine [Ssd] 20 gm TP 02/14/17 - Allergies Allergies/Adverse Reactions: Allergies Allergy/AdvReac Type Severity Reaction Status Date / Time cephalexin monohydrate * Allergy Severe Anaphylaxis Verified 02/14/17 12:07 [From Keflex] nitrofurantoin Allergy Mild Rash Verified 02/14/17 12:07 lorazepam Allergy Unknown UNKNOWN Verified 02/14/17 12:07 - Social History Does the pt smoke?: No Smoking Status: Never smoker Does the pt drink ETOH?: No Does the pt have substance abuse?: No - Family History Family history: reports: Non contributory - Immunizations Immunizations are current?: Yes - POLST Patient has POLST: Yes PD ED PE NORMAL - Vitals Vital signs reviewed: Yes - General General: Alert and oriented X 3, No acute distress - HEENT HEENT: PERRL, EOMI - Neck Neck: Supple, no meningeal sign, No bony TTP - Cardiac Cardiac: No murmur, Other (Irregularly irregular) - Respiratory Respiratory: Other (Rhonchorous throughout, nonlabored) - Abdomen Abdomen: Soft, Non tender - Male Male : Other (Lara in place) - Back Back: No CVA TTP, No spinal TTP - Extremities Extremities: Other (On the right lower extremity, over the medial knee there is a large blood-filled blister, measuring approximately 10 cm x 5 cm that was sharply debrided during examination and cultured. There is also a series of smaller infected appearing ulcers with surrounding cellulitis to the lateral right calf.) - Neuro Neuro: Alert and oriented X 3, Normal speech - Psych Psych: Normal mood, Normal affect Results - Vitals Vitals: Vital Signs - 24 hr 02/14/17 02/14/17 02/14/17 12:05 14:40 15:16 Temperature 36.6 C Heart Rate 83 105 H 86 Respiratory 20 29 H Rate Blood Pressure 142/76 H 137/65 H 126/68 O2 Saturation 100 Oxygen O2 Source Room air - EKG (time done) 1322 Rate: Rate (enter#) (104) Rhythm: Atrial fibrillation [place]: LAD Intervals: Other (IVCD) Ischemia: Q waves (inferior) Computer interpretation: Agree with computer - Labs Labs: Laboratory Tests 02/14/17 02/14/17 02/14/17 13:27 13:27 13:27 WBC 7.6 RBC 3.12 L Hgb 9.8 L Hct 29.5 L MCV 94.5 H MCH 31.4 H MCHC 33.2 RDW 18.6 H Plt Count 95 L MPV 8.4 Neut # 6.3 Lymph # 0.7 L [place] # 0.4 Eos # 0.1 Baso # 0.0 Absolute Nucleated RBC 0.00 Nucleated RBCs 0.0 Sodium 128 L Potassium 4.9 Chloride 99 L Carbon Dioxide 21 Anion Gap 8.0 BUN 62 H Creatinine 1.5 H Estimated GFR (MDRD) 46 L Glucose 101 H Lactic Acid Calcium 9.3 Total Bilirubin 1.4 H AST 42 ALT 68 H Alkaline Phosphatase 200 H Troponin I 0.04 B-Natriuretic Peptide Total Protein 7.9 Albumin 4.0 Globulin 3.9 Albumin/Globulin Ratio 1.0 Lipase 30 02/14/17 02/14/17 13:27 13:27 WBC RBC Hgb Hct MCV MCH MCHC RDW Plt Count MPV Neut # Lymph # [place] # Eos # Baso # Absolute Nucleated RBC Nucleated RBCs Sodium Potassium Chloride Carbon Dioxide Anion Gap BUN Creatinine Estimated GFR (MDRD) Glucose Lactic Acid 1.0 Calcium Total Bilirubin AST ALT Alkaline Phosphatase Troponin I B-Natriuretic Peptide 95 Total Protein Albumin Globulin Albumin/Globulin Ratio Lipase - Rads (name of study) 2 view chest Radiology: EMP read contemporaneously (Cardiomegaly with pulmonary vascular congestion) PD MEDICAL DECISION MAKING - ED course ED course: This is a morbidly obese 71-year-old with cellulitis of the right lower extremity that has failed outpatient treatment. He is cultured up and given Unasyn, Based on prior culture results. He also has a cough and increased dyspnea. His chest x-ray shows mild CHF, but his BNP and troponin are negative. - Consults Consults: Consulted (name) (Dr Puente For admission at 3:10 PM) Departure - Departure Disposition: [facility] DC/Xfer Clinical Impression: Cellulitis Qualifiers: Site of cellulitis: extremity Site of cellulitis of extremity: lower extremity Laterality: right Qualified Code(s): L03.115 - Cellulitis of right lower limb Dyspnea Qualifiers: Dyspnea type: shortness of breath Qualified Code(s): R06.02 - Shortness of breath Condition: Stable
[2017-02-14] MEDS ORDERED: SODIUM CHLORIDE FLUSH 0.9% 10 ML SYRINGE IVP ONE ×2 (13:17→14:09)
[2017-02-14] MEDS ORDERED: LIDOCAINE-EPINEPH-TETRACAINE 3 ML SYRINGE TOP STA (13:44)
[2017-02-14] MEDS ORDERED: LIDOCAINE-EPINEPH-TETRACAINE 3 ML SYRINGE TOP ONE (13:46)
[2017-02-14 13:51] LABS: BASOPHILS % (AUTO) 0.6 %; EOSINOPHILS # (AUTO) 0.1 10^3/uL (0.0-0.7); EOSINOPHILS % (AUTO) 1.3 %; HCT - HEMATOCRIT 29.5 % (42.0-52.0); HGB - HEMOGLOBIN 9.8 g/dL (14.0-18.0); LYMPHOCYTES # (AUTO) 0.7 10^3/uL (1.5-3.5); LYMPHOCYTES % (AUTO) 9.5 %; MEAN CORPUSCULAR HEMOGLOBIN 31.4 pg (27.0-31.0); MEAN CORPUSCULAR HGB CONC 33.2 g/dL (32.0-36.0); MEAN CORPUSCULAR VOLUME 94.5 fL (80.0-94.0); MEAN PLATELET VOLUME 8.4 fL (7.4-11.4); MONOCYTES # (AUTO) 0.4 10^3/uL (0.0-1.0); MONOCYTES % (AUTO) 5.4 %; NEUTROPHILS # (AUTO) 6.3 10^3/uL (1.5-6.6); NEUTROPHILS % (AUTO) 83.2 %; RED BLOOD COUNT 3.12 10^6/uL (4.70-6.10); RED CELL DISTRIBUTION WIDTH 18.6 % (12.0-15.0); UNCORRECTED WHITE BLOOD COUNT 7.6 x10^3/uL; WHITE BLOOD COUNT 7.6 x10^3/uL (4.8-10.8)
[2017-02-14 14:01] LABS: BILIRUBIN,TOTAL 1.4 mg/dL (0.2-1.0); CALCIUM 9.3 mg/dL (8.5-10.3); CREATININE 1.5 mg/dL (0.6-1.2); POTASSIUM 4.9 mmol/L (3.5-5.0); TOTAL PROTEIN 7.9 g/dL (6.7-8.2)
--- NOTE | 2017-02-14 14:55 | XRAY Preliminary Report ---
Exam: XR Chest 2 View PA/LAT IMPRESSION: 1. Cardiomegaly with pulmonary vascular congestion. Basilar dependent atelectasis. [facility] SITE ID: [id number]
--- NOTE | 2017-02-14 14:58 | XRAY Report ---
EXAM: CHEST RADIOGRAPHY EXAM DATE: 02/14/2017 02:28 PM. CLINICAL HISTORY: Dyspnea and cough COMPARISON: 09/15/2016. TECHNIQUE: 2 views. FINDINGS: Lungs/Pleura: There is pulmonary vascular congestion without significant change. There is a basilar l inear density and a lingula linear opacity of atelectasis. No focal consolidative pneumonia, limited by body habitus. No pleural effusion or pneumothorax. Mediastinum: Cardiac silhouette is enlarged. Other: None. IMPRESSION: 1. Cardiomegaly with pulmonary vascular congestion. Basilar dependent atelectasis. [facility] Referring Provider Line: [phone] SITE ID: [id number]
[2017-02-14] MEDS ORDERED: ONDANSETRON ODT 4 MG TABLET TL PRN (17:19)
[2017-02-14] MEDS ORDERED: ACETAMINOPHEN 325 MG TABLET PO PRN (17:19)
[2017-02-14] MEDS ORDERED: BISACODYL 10 MG SUPP PR STA (17:42)
[2017-02-14] MEDS: HYDROcod/ACETAM 10 MG/325 MG TABLET PO SCH ×3 (18:31→23:56)
[2017-02-14] MEDS: PANTOPRAZOLE 40 MG VIAL IVP SCH (18:31)
[2017-02-14] MEDS: CLINDAMYCIN 600 MG/50 ML 50 ML IV SCH (18:32)
[2017-02-14] MEDS: SODIUM CHLORIDE 0.9% 1,000 ML IV SCH (18:32)
[2017-02-14] MEDS: metroNIDAZOLE 500 MG/100 ML 100 ML IV SCH (18:32)
[2017-02-14] MEDS: METHADONE 5 MG TABLET PO SCH ×2 (18:36→21:24)
[2017-02-14] MEDS: traZODone 50 MG TABLET PO SCH ×2 (18:36→21:26)
--- NOTE | 2017-02-14 18:41 | HISTORY & PHYSICAL EXAMINATION ---
DATE OF ADMISSION: 02/14/2017 CHIEF COMPLAINT: Wound and pain. HISTORY OF PRESENT ILLNESS: The patient is a very pleasant 71-year-old morbidly obese gentleman with a history of CHF, atrial fibrillation not presently on any anticoagulation, atrial fibrillation bed-b ound with chronic indwelling Lara and with bilateral lower extremity edema and leg wounds who was al so recently on palliative care. The patient came in to the ER complaining of right and left lower leg calf pain and worsening cellulitis that grew out 4 types of microbes, they were all sensitive to amp icillin and amoxicillin. The patient stated he took amoxicillin for approximately 10 days, but did no t help. He states that he had had no fevers, no cough, was not short of breath with the exception of the normal shortness of breath that he has with exertion and the wounds continued to be nonhealing, e specially in the right lower extremity. Culture from 2 weeks ago were reviewed and he had just finish ed up a course of antibiotics. He now has a large new wound on the upper right medial knee and thigh. While in the ER, it was debrided by the ER provider. It was rewrapped with Kerlix, however, at time of assessment it was having serosanguineous drainage. The patient states that he has had similar symp toms before in the past. He continues to have significant lower edema and swelling. He had a couple o f blood blisters when the legs were debrided to the right side. He was started on Unasyn while in the ER IV. The patient will be admitted inpatient for further IV treatment. A palliative consult will be requested with Jinny Chen. He has also been started on methadone for more aggressive pain manageme nt. ALLERGIES: 1. CEPHALEXIN. 2. MONOHYDRATE. 3. NITROFURANTOIN. 4. LORAZEPAM. PAST MEDICAL HISTORY: Includes atrial fibrillation and past DC, angina and congestive heart failure, peripheral vascular disease, hypertension, chronic bladder infection with an indwelling Lara cathete r, glaucoma, rheumatoid arthritis, gout and chronic fatigue. PAST SURGICAL HISTORY: Includes cataracts and multiple debridements of lower extremity. HOME MEDICATIONS: 1. Allopurinol 300 mg p.o. daily. 2. Spironolactone 100 mg p.o. daily. 3. Vicodin 1 Tab p.o. q.4h. 4. Lasix 120 mg p.o. daily. 6. Potassium 20 mEq p.o. b.i.d.. 7. Aspirin 81 mg p.o. daily. 8. Ora 180 mg p.o. daily. 9. Flonase 1 inhaled b.i.d.. 10. Cozaar 25 mg p.o. daily. 11. Nitrostat 0.4 mg p.o. q. 1h. p.r.n.. 12. Trazodone 50 mg p.o. before meals and at bedtime. 13. Santyl. 14. Nystatin topical b.i.d. 15. Sulfasalazine 20 grams topical. PAST FAMILY HISTORY: The patient states that both of his parents had coronary artery disease. PAST SOCIAL HISTORY: The patient never smoked, does not drink, he has never used illicit drugs. The p atient does have a POLST on file and is DNR. REVIEW OF SYSTEMS: Ten systems have been reviewed and negative with the exceptions that were discusse d in the HPI prior. He does not have any reports of chest pain, shortness of breath that are new. He does report shortness of breath and cough that are new, not related to his congestive heart failure. He has pain to bilateral lower extremities. No nausea, vomiting, diarrhea or constipation. PHYSICAL EXAMINATION: CONSTITUTIONAL: The patient is alert, in no acute distress. EYES: Pupils equal, round and react to light and accommodation. Conjunctivae and sclerae are nonicter ic, not injected. ENT: Nares are patent. No nasal discharge. OROPHARYNX: No masses, exudates or lesions. Mucous membranes are moist. NECK: Supple. No thyromegaly. CARDIOVASCULAR: S1, S2, no murmur. No JVD. RESPIRATORY: Rhonchorus throughout. Nonlabored with no retractions or nasal flaring. ABDOMEN: Morbidly obese with rash to pannus, soft, nontender. No guarding or rebound. GENITOURINARY: The patient has a Lara in place draining cloudy urine, no CVA tenderness. MUSCULOSKELETAL/EXTREMITIES: Medial knee there is large blood filled blister that is covered with Ker lix. According to medical records is 10 x 5 cm sharply debrided during examination and cultured in e ER. Small infected appearing ulcers and surrounding cellulitis of the lateral right calf. HEMATOLOGIC: Active bleeding to the right knee. Otherwise, hemodynamically stable. LYMPHATICS: No cervical, axillary, supraclavicular lymphadenopathy is noted. PSYCHIATRIC: Cooperative. He is oriented x3. Normal affect. NEUROLOGIC: He is alert, GCS 15. Cranial nerves 2 through 7 grossly intact. Normal speech. LABORATORY AND DIAGNOSTIC DATA: I personally reviewed all laboratory and diagnostic data in the medic al records. The abnormals are below: Hematocrit 29.5, RBCs 3.12, platelets 95. Sodium 128, chloride 99, BUN 62, creatinine 1.5, GFR is 46, glucose 101. Total bilirubin 1.4, ALT is 68, alkaline phosphatase is 200. BNP 95. IMAGING: Diagnostic EKG rhythm is atrial fibrillation with left axis deviation and Q-waves inferior. Chest x-ray shows cardiomegaly with pulmonary vascular congestion. No pleural effusion or infiltrate. ASSESSMENT AND PLAN: This is a morbidly obese 71-year-old gentleman with cellulitis of the right lowe r extremity, failed outpatient treatment. He was given Unasyn IV in the ER. He does have increased sh ortness of breath that is new and not contributed to his congestive heart failure. His chest x-ray do es show congestive heart failure; however, BNP is normal. Troponins have been negative. 1. Acute bilateral lower extremity edema with probable cellulitis to right lower extremity with faile d outpatient treatment. PLAN: We will start the patient on clindamycin IV, he was given Unasyn in the ER. Continue with pain medication management with Vicodin and the patient has been now placed on met hadone for chronic pain. He was on palliative care treatment. Will continue to monitor CBC daily for changes in white count, monitor for fevers. Tylenol will be given. Will continue to monitor electroly bria. Blood cultures are pending at this time. IV fluids just to keep the patient hydrated at 80 mL an hour. Will hold for crackles and edema in the lungs. 2. Chronic atrial fibrillation, not on any anticoagulation therapy. PLAN: Telemetry monitoring. The patient will also have cardiac enzymes markers trended. We will aguila nue on aspirin and Nitrostat p.r.n. and Cozaar. The patient is also on potassium supplementation. 3. Congestive heart failure, unspecified. PLAN: Will continue on Lasix therapy. The patient is also on spironolactone 100 mg p.o. daily, which will continue. Continue to monitor kidney function at this time. He was slightly dry; however, this m ay be due to his infection of the right lower leg. 4. Chronic indwelling Lara catheter with chronic bladder infection. PLAN: Continue to monitor for changes in output and kidney function. Continue to monitor for fevers a nd changes in white blood cell count. The patient is on clindamycin at this time IV. 5. Morbid obesity with BMI greater than 50 being bed-bound. PLAN: Physical and occupational therapy have been requested. However, due to the patient's size and s tatus this might be difficult without assistance from nursing. He will need assistance for toileting and showering. 6. Deep venous thrombosis prophylaxis with Lovenox and foot pump. RISK ASSESSMENT/DISPOSITION: The patient is high risk for worsening comorbidities. He will require ad ditional IV medication with high risk for toxicity and diagnostics are possible. Code status was addr essed at the bedside the patient is a DNR AND depending palliative care consult. Time spent with the patient was 40 minutes for planning assessment and education. The patient will re quire at least 2 nights' stay for IV medication. JOB #: [id number] EXT JOB #:[id number]
[2017-02-14] MEDS: POTASSIUM CHLORIDE 20 MEQ TABLET PO SCH (21:24)
[2017-02-14] MEDS: SODIUM CHLORIDE FLUSH 0.9% 10 ML SYRINGE IVP SCH (21:26)
[2017-02-14] MEDS: MORPHINE 2 MG/ML SYRINGE IVP PRN (23:56)
[2017-02-15] MEDS: METHADONE 5 MG TABLET PO SCH ×3 (06:06→22:41)
[2017-02-15 06:07] LABS: BASOPHILS % (AUTO) 0.5 %; EOSINOPHILS # (AUTO) 0.1 10^3/uL (0.0-0.7); EOSINOPHILS % (AUTO) 1.8 %; HCT - HEMATOCRIT 28.1 % (42.0-52.0); HGB - HEMOGLOBIN 9.3 g/dL (14.0-18.0); LYMPHOCYTES # (AUTO) 0.5 10^3/uL (1.5-3.5); LYMPHOCYTES % (AUTO) 8.2 %; MEAN CORPUSCULAR HEMOGLOBIN 31.7 pg (27.0-31.0); MEAN CORPUSCULAR VOLUME 95.9 fL (80.0-94.0); MEAN PLATELET VOLUME 8.8 fL (7.4-11.4); MONOCYTES # (AUTO) 0.4 10^3/uL (0.0-1.0); MONOCYTES % (AUTO) 7.3 %; NEUTROPHILS # (AUTO) 4.7 10^3/uL (1.5-6.6); NEUTROPHILS % (AUTO) 82.2 %; RED BLOOD COUNT 2.93 10^6/uL (4.70-6.10); RED CELL DISTRIBUTION WIDTH 18.7 % (12.0-15.0); UNCORRECTED WHITE BLOOD COUNT 5.8 x10^3/uL; WHITE BLOOD COUNT 5.8 x10^3/uL (4.8-10.8)
[2017-02-15] MEDS: PANTOPRAZOLE 40 MG VIAL IVP SCH (06:07)
[2017-02-15] MEDS: traZODone 50 MG TABLET PO SCH ×4 (06:07→22:41)
[2017-02-15 06:23] LABS: CALCIUM 9.1 mg/dL (8.5-10.3); CREATININE 1.4 mg/dL (0.6-1.2); POTASSIUM 5.1 mmol/L (3.5-5.0)
[2017-02-15] MEDS: HYDROcod/ACETAM 10 MG/325 MG TABLET PO SCH ×5 (06:25→22:39)
[2017-02-15] MEDS: CLINDAMYCIN 600 MG/50 ML 50 ML IV SCH ×2 (06:25→09:28)
[2017-02-15] MEDS: metroNIDAZOLE 500 MG/100 ML 100 ML IV SCH ×2 (06:25→10:08)
[2017-02-15] MEDS: SODIUM CHLORIDE FLUSH 0.9% 10 ML SYRINGE IVP SCH ×3 (06:26→22:41)
[2017-02-15] MEDS: SODIUM CHLORIDE 0.9% 1,000 ML IV SCH (07:28)
[2017-02-15] MEDS: SPIRONOLACTONE 25 MG TABLET PO SCH (08:23)
[2017-02-15] MEDS: ALLOPURINOL 100 MG TABLET PO SCH (08:23)
[2017-02-15] MEDS: POTASSIUM CHLORIDE 20 MEQ TABLET PO SCH ×2 (08:24→22:41)
[2017-02-15] MEDS: LOSARTAN 50 MG TABLET PO SCH (08:24)
[2017-02-15] MEDS: ENOXAPARIN 40 MG/0.4 ML SYRINGE SUBQ SCH (08:25)
[2017-02-15] MEDS: ASPIRIN EC 81 MG TABLET PO SCH (08:25)
[2017-02-15] MEDS: SACCHAROMYCES BOULARDII 250 MG CAPSULE PO SCH ×2 (08:25→17:59)
[2017-02-15] MEDS: POLYETHYLENE GLYCOL 3350 17 GM PACKET PO SCH (08:27)
[2017-02-15] MEDS: FUROSEMIDE 40 MG TABLET PO SCH (08:28)
[2017-02-15] MEDS ORDERED: SODIUM CHLORIDE 0.9% 1,000 ML IV ONE (09:26)
[2017-02-15] MEDS: MORPHINE 2 MG/ML SYRINGE IVP PRN ×5 (09:56→17:59)
--- NOTE | 2017-02-15 10:07 | CONSULTATION NOTE ---
Palliative Care Follow Up - Referral Referring Provider: Tamara MAYFIELD Time of Visit: [phone] Referral setting: Hospitalized patient Referral Reason: Acute on Chronic Pain - Information Sources Records Reviewed: RN notes reviewed, Old records reviewed History obtained from: Patient Exam limitations: No limitations - History of Present Illness Update Brief HPI Update: This a a 71 year old gentleman well known to me from outpatient, admitted with cellulitis that failed outpatient therapy, CHF exacerbation, and ongoing exacerbated bilateral shoulder pain attributed to rotator cuff damage, DJD, and bone spur. Has had orthopedic consult with injections without success. Was just going to initiate him on methadone outpatient when admitted. Had spoken with Tamara MAYFIELD about starting methadone 2.5 mg TID here, and using the Hydrocodone 10 mg/325 mg every 4 hours for BTP. Unfortunately had gotten scheduled, so felt jittery and has been refusing hydrocodone and methadone. Patient's acute pain of right knee with debrided blood blister most problematic at visit, baseline pain remains moderate-severe, it is often exacerbated at home because of needing to attend to ADLs, and transfers to toilet.Patient has had multiple rounds of antibiotic therapy, MDRO, and increasing difficulty finding adequate treatment options. Social History - Living Situation Living arrangement: At home Living Situation: Alone, Other (in process of applying for [facility] with hope to be able to get caregiving hours; has not had interview yet) Support System: Has a son, but has been minimally involved in care, is aware is hospitalized. Is his DPOA Medications/Allergies - Medications Active Medication List: Active Medications Acetaminophen (Tylenol) 650 mg PO Q4HR PRN PRN Reason: Pain 1 to 4 Acetaminophen/Hydrocodone Bitart ([place] 10 Mg/325 Mg) 1 tab PO Q4HR [facility] Last Admin: 02/15/17 08:28 Dose: Not Given Allopurinol (Zyloprim) 300 mg PO DAILY [facility] Last Admin: 02/15/17 08:23 Dose: 300 mg Aspirin (Ecotrin) 81 mg PO DAILY [facility] Last Admin: 02/15/17 08:25 Dose: 81 mg Enoxaparin Sodium (Lovenox) 40 mg SUBQ DAILY [facility] Last Admin: 02/15/17 08:25 Dose: 40 mg Furosemide (Lasix) 120 mg PO DAILY [facility] Last Admin: 02/15/17 08:28 Dose: 120 mg Clindamycin Phosphate (Cleocin 600 Mg/50 Ml) 50 mls @ 100 mls/hr IV Q8H [facility] Last Admin: 02/15/17 09:28 Dose: 100 mls/hr Metronidazole (Flagyl 500 Mg/100 Ml) 100 mls @ 100 mls/hr IV Q8H [facility] Last Admin: 02/15/17 06:25 Dose: Not Given Sodium Chloride (Normal Saline 0.9%) 1,000 mls @ 83.333 mls/hr IV .Q12H [facility] Last Admin: 02/15/17 07:28 Dose: Not Given Losartan Potassium (Cozaar) 25 mg PO DAILY [facility] Last Admin: 02/15/17 08:24 Dose: 25 mg Methadone HCl () 2.5 mg PO TID [facility] Last Admin: 02/15/17 06:06 Dose: Not Given Morphine Sulfate (Morphine) 2 mg IVP Q2H PRN PRN Reason: PAIN Last Admin: 02/15/17 09:56 Dose: 2 mg Ondansetron HCl (Zofran Odt) 4 mg TL Q6HR PRN PRN Reason: Nausea / Vomiting Pantoprazole Sodium (Protonix) 40 mg IVP QDAC [facility] Last Admin: 02/15/17 06:07 Dose: Not Given Polyethylene Glycol (Miralax) 17 gm PO DAILY [facility] Last Admin: 02/15/17 08:27 Dose: 17 gm Potassium Chloride (K-Dur) 20 meq PO BID [facility] Last Admin: 02/15/17 08:24 Dose: 20 meq Saccharomyces Boulardii (Florastor) 250 mg PO BIDWM [facility] Last Admin: 02/15/17 08:25 Dose: 250 mg Silver Sulfadiazine (Silvadene Cream) 1 applic TOP DAILY PRN PRN Reason: NEEDED PER PROVIDER ORDERS Simethicone (Mylicon) 80 mg PO QID PRN PRN Reason: GAS Sodium Chloride (Normal Saline Flush 0.9%) 10 ml IVP PRN PRN PRN Reason: NEEDED PER PROVIDER ORDERS Sodium Chloride (Normal Saline Flush 0.9%) 10 ml IVP Q8HR [facility] Last Admin: 02/15/17 06:26 Dose: Not Given Spironolactone (Aldactone) 100 mg PO DAILY [facility] Last Admin: 02/15/17 08:23 Dose: 100 mg Trazodone HCl (Desyrel) 50 mg PO ACHS [facility] Last Admin: 02/15/17 06:07 Dose: Not Given Allopurinol 300 mg PO DAILY 09/22/12 Spironolactone 100 mg PO DAILY 01/26/16 Hydrocodone/Acetaminophen [Hydrocodon-Acetaminophn 10-325] 1 tab PO Q4HR PRN Furosemide [Lasix] 120 mg PO DAILY 10/09/16 Potassium Chloride [Klor-Con M20] 20 meq PO TID 10/09/16 Aspirin [Aspirin EC] 81 mg PO DAILY 02/12/17 Fexofenadine/Pseudoephedrine [Ora-D 24 Hour Tablet] 180 mg PO DAILY Fluticasone [Flonase] 1 inh INH BID 02/12/17 Nitroglycerin [Nitrostat] 0.4 mg PO Q1HR PRN 02/12/17 Trazodone HCl 50 mg PO DAILY 02/12/17 Nystatin [Nystop] 0 gm TOP BID 02/14/17 Silver Sulfadiazine [Ssd] 20 gm TP DAILY 02/14/17 Carvedilol 6.25 mg PO TID 02/15/17 Tramadol HCl 50 mg PO Q6H PRN 02/15/17 - Allergies Allergies/Adverse Reactions: Allergies Allergy/AdvReac Type Severity Reaction Status Date / Time cephalexin monohydrate * Allergy Severe Anaphylaxis Verified 02/14/17 12:07 [From Keflex] nitrofurantoin Allergy Mild Rash Verified 02/14/17 12:07 lorazepam Allergy Unknown UNKNOWN Verified 02/14/17 12:07 Review of Systems - Constitutional Constitutional: reports: Fatigue, Weakness - Eyes Eyes: denies: Vision loss - Ears, Nose & Throat Ears, Nose & Throat: reports: Hearing loss (mild) - Cardiovascular Cardiovascular: reports: Edema, Exertional dyspnea, Decr. exercise tolerance. denies: Chest pain - Respiratory Respiratory: reports: SOB at rest (improved over last 2 days), SOB with exertion - Gastrointestinal Gastrointestinal: denies: Constipation (had two large bowel movements with relief of constipation) - Genitourinary Genitourinary: reports: Other (fraga catheter) - Musculoskeletal Musculoskeletal: reports: Stiffness, Limited range of motion, Muscle weakness, Other (walker for transfers, uses scooter wheelchair at home) - Integumentary Integumentary: reports: Other (multiple lower extremities wound, chronic has been addressed by ) - Neurological Neurological: reports: General weakness - Psychiatric Psychiatric: reports: Depression (just started on antidepressant) - Endocrine Endocrine: denies: Intolerance to cold, Intolerance to heat - Hematologic/Lymphatic Hematologic/Lymphatic: reports: Recurrent infections (frequents admits / treatments for UTI and wounds) - All Other Systems All Other Systems: reports: Reviewed and negative Physical Exam - Physical Exam General Appearance: positive: Mild distress, Anxious (wants to get home; admits to being introvert) Eyes Bilateral: positive: Normal inspection ENT: positive: No signs of dehydration Neck: positive: No JVD, Trachea midline Cardiovascular: positive: Irregularly irregular Respiratory: positive: Diminished in bases. negative: Rales, Rhonchi Abdomen: positive: Soft, Obese Skin: positive: Other (wounds with dressings; oozing noted in right knee) Extremities: positive: Pedal edema Neurologic/Psychiatric: positive: Oriented x3, Depressed mood/affect Palliative Care - POLST POLST Status: DNR Pain: Pain worsening, Location (bilateral shoulder pain mod/severe; worsening; new right knee actue) Tiredness/Fatigue: Moderate (4-6) Drowsiness/Sedation: Comment (reports jittery and did poorly at home) Nausea: None Depression: Severe (7-10) (feeling like options and overwhelmed) Anxiety: Mild (1-3) Dyspnea: Mild (1-3) Anorexia: None Sleep: Variable sleep pattern Constipation: Yes, Opoid induced, Managed Feelings of wellbeing/Perceived Quality of Life: Poor, Worsening Performance Status: patient having increase difficulty with functional transfers; using scooter. Getting aide bathing 2-3 times a day - Palliative Care Discussion: Did discuss this with patient, choice to be a DNAR here at the hospital. He does recognize he is continued to have increased difficulty, his quality of life is diminishing, and if he were to have some kind of event to bring him "back" would probably not bring him back to his previous level of functioning. He reports his POLST remains the same at home, but is willing to revisit this on discharge. Currently is feeling very vulnerable, is having less and less options as far as supporting his current quality of life, reports he has had 10 years of serious health problems and is getting frustrated as well as tired. Results - Lab Results Fish Bones: 02/15/17 05:49 02/15/17 05:49 Lab and Imaging Results: Lab Results x24hrs 02/15/17 02/15/17 Range/Units 05:49 05:49 WBC 5.8 (4.8-10.8) x10^3/uL RBC 2.93 L (4.70-6.10) 10^6/uL Hgb 9.3 L (14.0-18.0) g/dL Hct 28.1 L (42.0-52.0) % MCV 95.9 H (80.0-94.0) fL MCH 31.7 H (27.0-31.0) pg MCHC 33.0 (32.0-36.0) g/dL RDW 18.7 H (12.0-15.0) % Plt Count 64 L (130-450) 10^3/uL MPV 8.8 (7.4-11.4) fL Neut # 4.7 (1.5-6.6) 10^3/uL Lymph # 0.5 L (1.5-3.5) 10^3/uL [place] # 0.4 (0.0-1.0) 10^3/uL Eos # 0.1 (0.0-0.7) 10^3/uL Baso # 0.0 (0.0-0.1) 10^3/uL Absolute Nucleated RBC 0.00 x10^3/uL Nucleated RBC % 0.0 /100WBC Sodium 130 L (135-145) mmol/L Potassium 5.1 H (3.5-5.0) mmol/L Chloride 102 (101-111) mmol/L Carbon Dioxide 20 L (21-32) mmol/L Anion Gap 8.0 (6-13) BUN 56 H (6-20) mg/dL Creatinine 1.4 H (0.6-1.2) mg/dL Estimated GFR (MDRD) 50 L (>89) Glucose 116 H (70-100) mg/dL Calcium 9.1 (8.5-10.3) mg/dL Impression and Recommendations Recommendations/Counseling Done: 1. Acute on chronic pain. Initiated methadone 2.5 mg TID, counseling to patient on goal of long acting medication to take place of hydrocodone, and to use the for BTP. Will follow up with hospitalist to change to PRN dosing for hydrocodone. Patient without pharmacy benefit, attempting to manage with cost effective approach. In agreement with plan. 2. Depression and controlled. Patient still demonstrating feelings of overwhelmed perceived hopelessness and helplessness with his current situation. Had initiated trazodone at 50 mg last week with the goal to increase to 100 mg this week. Again, patient has limited funds as well as no pharmacy benefit, had originally hoped to use and SSRI, hoping trazodone can also augment his sleep and pain. It is most likely too early to evaluate whether this is effective or needs titration yet. 3. Advanced care planning. Patient continues to struggle with limited resources, both social and financial. He does have a son who is pain currently for [employer], he uses [employer] for transportation, and is in the process of applying for [employer]. He has not been interested in an alternative setting, though we did visit if possible with his [facility] in the future an assisted living facility. He has supported by home health services. He has had IV antibiotics in the past through [facility]. He would need a capital PICC line if this were indeed an option. He has already bargaining for discharge home. He is somewhat of a introvert and recluse, and dislikes hospitals. He has had a 10 day stay in [facility], which he did not like. I suspect if he does need SNF placement, would need to look at off bynum, may be considered closer to his son. Time Spent: 45 minutes with greater than 50% of this done in counseling and coordination of care regarding opioid management safety long-term care plan for discharge home as well as anticipatory guidance. Follow up with clinical staff regarding pain management and concerns of returning home.
--- NOTE | 2017-02-15 13:29 | PROVIDER PROGRESS NOTE ---
Subjective - Prog Note Date Prog Note Date: 02/15/17 - Subjective Pt reports feeling: Improved Subjective: pt state he feels better, but still has some pain at his right knee and lower extremity. pt denies chest pain, headache, SOB Current Medications - Current Medications Current Medications: Active Medications Acetaminophen (Tylenol) 650 mg PO Q4HR PRN PRN Reason: Pain 1 to 4 Acetaminophen/Hydrocodone Bitart ([place] 10 Mg/325 Mg) 1 tab PO Q4HR [facility] Last Admin: 02/15/17 17:59 Dose: 1 tab Allopurinol (Zyloprim) 300 mg PO DAILY [facility] Last Admin: 02/15/17 08:23 Dose: 300 mg Aspirin (Ecotrin) 81 mg PO DAILY [facility] Last Admin: 02/15/17 08:25 Dose: 81 mg Enoxaparin Sodium (Lovenox) 40 mg SUBQ DAILY [facility] Last Admin: 02/15/17 08:25 Dose: 40 mg Furosemide (Lasix) 120 mg PO DAILY [facility] Last Admin: 02/15/17 08:28 Dose: 120 mg Sodium Chloride (Normal Saline 0.9%) 1,000 mls @ 83.333 mls/hr IV .Q12H [facility] Last Admin: 02/15/17 07:28 Dose: Not Given Piperacillin Sod/Tazobactam (Sod 3.375 gm/ Sodium Chloride) 100 mls @ 200 mls/ hr IV ONCE [facility] Stop: 02/15/17 20:00 Last Admin: 02/15/17 17:59 Dose: 200 mls/hr Piperacillin Sod/Tazobactam (Sod 3.375 gm/ Sodium Chloride) 100 mls @ 25 mls/ hr IV Q8H [facility] Lidocaine HCl (Xylocaine Jelly 2%) 2 ml TOP BID PRN PRN Reason: PAIN Losartan Potassium (Cozaar) 25 mg PO DAILY [facility] Last Admin: 02/15/17 08:24 Dose: 25 mg Methadone HCl () 2.5 mg PO TID [facility] Last Admin: 02/15/17 13:57 Dose: 2.5 mg Morphine Sulfate (Morphine) 2 mg IVP Q2H PRN PRN Reason: PAIN Last Admin: 02/15/17 17:59 Dose: 2 mg Ondansetron HCl (Zofran Odt) 4 mg TL Q6HR PRN PRN Reason: Nausea / Vomiting Pantoprazole Sodium (Protonix) 40 mg IVP QDAC [facility] Last Admin: 02/15/17 06:07 Dose: Not Given Polyethylene Glycol (Miralax) 17 gm PO DAILY [facility] Last Admin: 02/15/17 08:27 Dose: 17 gm Potassium Chloride (K-Dur) 20 meq PO BID [facility] Last Admin: 02/15/17 08:24 Dose: 20 meq Saccharomyces Boulardii (Florastor) 250 mg PO BIDWM [facility] Last Admin: 02/15/17 17:59 Dose: 250 mg Silver Sulfadiazine (Silvadene Cream) 1 applic TOP DAILY PRN PRN Reason: NEEDED PER PROVIDER ORDERS Last Admin: 02/15/17 17:00 Dose: 20 gm Simethicone (Mylicon) 80 mg PO QID PRN PRN Reason: GAS Sodium Chloride (Normal Saline Flush 0.9%) 10 ml IVP PRN PRN PRN Reason: NEEDED PER PROVIDER ORDERS Last Admin: 02/15/17 15:42 Dose: 10 ml Sodium Chloride (Normal Saline Flush 0.9%) 10 ml IVP Q8HR [facility] Last Admin: 02/15/17 13:52 Dose: Not Given Spironolactone (Aldactone) 100 mg PO DAILY [facility] Last Admin: 02/15/17 08:23 Dose: 100 mg Trazodone HCl (Desyrel) 50 mg PO ACHS [facility] Last Admin: 02/15/17 17:21 Dose: Not Given Allopurinol 300 mg PO DAILY 09/22/12 Spironolactone 100 mg PO DAILY 01/26/16 Hydrocodone/Acetaminophen [Hydrocodon-Acetaminophn 10-325] 1 tab PO Q4HR PRN Furosemide [Lasix] 120 mg PO DAILY 10/09/16 Potassium Chloride [Klor-Con M20] 20 meq PO TID 10/09/16 Aspirin [Aspirin EC] 81 mg PO DAILY 02/12/17 Fexofenadine/Pseudoephedrine [Ora-D 24 Hour Tablet] 180 mg PO DAILY Fluticasone [Flonase] 1 inh INH BID 02/12/17 Nitroglycerin [Nitrostat] 0.4 mg PO Q1HR PRN 02/12/17 Trazodone HCl 50 mg PO DAILY 02/12/17 Nystatin [Nystop] 0 gm TOP BID 02/14/17 Silver Sulfadiazine [Ssd] 20 gm TP DAILY 02/14/17 Tramadol HCl 50 mg PO Q6H PRN 02/15/17 Objective - Vital Signs/Intake & Output Reviewed Vital Signs: Yes Vital Signs: Vital Signs (72 hours) 02/14/17 02/14/17 02/14/17 12:05 14:40 15:16 Temperature 36.6 C Heart Rate 83 105 H 86 Heart Rate [ Brachial] Respiratory 20 29 H Rate Blood Pressure 142/76 H 137/65 H 126/68 Blood Pressure [Left Brachial artery] O2 Saturation 100 02/14/17 02/14/17 02/15/17 15:45 16:25 00:36 Temperature 36.2 C L 36.5 C Heart Rate 92 Heart Rate [ 96 77 Brachial] Respiratory 20 20 16 Rate Blood Pressure 129/56 L Blood Pressure 130/60 108/58 L [Left Brachial artery] O2 Saturation 96 100 98 02/15/17 02/15/17 13:35 16:07 Temperature 36.7 C 36.5 C Heart Rate Heart Rate [ 80 97 Brachial] Respiratory 16 16 Rate Blood Pressure Blood Pressure 129/69 117/70 [Left Brachial artery] O2 Saturation 100 100 Intake & Output: Intake & Output 02/12/17 02/13/17 02/14/17 02/15/17 23:59 23:59 23:59 23:59 Intake Total 792 360 Output Total 1325 550 Balance -533 -190 - Objective General Appearance: positive: No acute distress, Alert. negative: Lethargic Eyes Bilateral: positive: Normal inspection, PERRL, EOMI, No lid inflammation, Conjunctivae nml ENT: positive: ENT inspection nml, Pharynx nml, No signs of dehydration. negative: Purulent nasal drainage, Pharyngeal erythema, Oral lesions Neck: positive: Nml inspection, Thyroid nml, No JVD, Trachea midline. negative : Thyromegaly, Lymphadenopathy (R), Lymphadenopathy (L), Stiff neck, Tracheal deviation Respiratory: positive: Chest non-tender, No respiratory distress, Breath sounds nml. negative: Wheezes, Rales, Rhonchi Cardiovascular: positive: Regular rate & rhythm, No murmur, No gallop. negative : Tachycardia, Bradycardia Peripheral Pulses: 2+ Radial (R), 2+ Radial (L), 2+ Popliteal (R), 2+ Popliteal (L) Abdomen: positive: Non-tender, Nml bowel sounds, No distention. negative: Tenderness, Guarding, Rebound Back: positive: Nml inspection. negative: CVA tenderness (R), CVA tenderness (L ) Skin: positive: Color nml, Warm, Dry, Skin rash, Decubitus, Other (wound infection at right lower extremity,). negative: Diaphoresis, Pallor Extremities: positive: Non-tender, Full ROM, Pedal edema. negative: Calf tenderness, Ana Luisa's sign/cords Neurologic/Psychiatric: positive: Oriented x3, Sensation nml. negative: Sensory loss, Facial droop, Slurred/abnml speech - Lab Results Fish Bones: 02/15/17 05:49 02/15/17 05:49 Other Labs: Lab Results x24hrs 02/15/17 02/15/17 Range/Units 05:49 05:49 WBC 5.8 (4.8-10.8) x10^3/uL RBC 2.93 L (4.70-6.10) 10^6/uL Hgb 9.3 L (14.0-18.0) g/dL Hct 28.1 L (42.0-52.0) % MCV 95.9 H (80.0-94.0) fL MCH 31.7 H (27.0-31.0) pg MCHC 33.0 (32.0-36.0) g/dL RDW 18.7 H (12.0-15.0) % Plt Count 64 L (130-450) 10^3/uL MPV 8.8 (7.4-11.4) fL Neut # 4.7 (1.5-6.6) 10^3/uL Lymph # 0.5 L (1.5-3.5) 10^3/uL [place] # 0.4 (0.0-1.0) 10^3/uL Eos # 0.1 (0.0-0.7) 10^3/uL Baso # 0.0 (0.0-0.1) 10^3/uL Absolute Nucleated RBC 0.00 x10^3/uL Nucleated RBC % 0.0 /100WBC Sodium 130 L (135-145) mmol/L Potassium 5.1 H (3.5-5.0) mmol/L Chloride 102 (101-111) mmol/L Carbon Dioxide 20 L (21-32) mmol/L Anion Gap 8.0 (6-13) BUN 56 H (6-20) mg/dL Creatinine 1.4 H (0.6-1.2) mg/dL Estimated GFR (MDRD) 50 L (>89) Glucose 116 H (70-100) mg/dL Calcium 9.1 (8.5-10.3) mg/dL Assessment/Plan - Problem List (1) Cellulitis Impression: chronic and recurrent cellulitis at right lower extremity. pt denies tenderness at calf. pt is with stage III CKD. blood and would culture will be followed up call pharmacy and discuss for pt's allergy to Cephalexin. Zosyn IV Qualifiers: Site of cellulitis: extremity Site of cellulitis of extremity: lower extremity Laterality: right Qualified Code(s): L03.115 - Cellulitis of right lower limb (2) Bilateral edema of lower extremity Impression: chronic condition, stable now. elevated bilateral lower extremity continue home meds Lasix daily lab check, vital monitor (3) Hyponatremia Impression: pt's Na is 130 today, pt is with hx of CHF continue mild fluid with NS daily lab test to monitor Na level (4) History of CHF (congestive heart failure) Impression: stable, continue home meds of lasix lower sodium diet, I/O monitor tele, vital monitor (5) Hx of atrial fibrillation without current medication Impression: stable, continue monitor with tele, vital (6) Chronic renal insufficiency Impression: stable, continue hydration, hold nephrotoxic agents daily lab monitor (7) Morbid obesity Impression: chronic, fall precaution, encourage pt loss of weight
[2017-02-15] MEDS: SODIUM CHLORIDE FLUSH 0.9% 10 ML SYRINGE IVP PRN (15:42)
[2017-02-15] MEDS ORDERED: LIDOCAINE JELLY 2% 5 ML TUBE TOP ONE (16:39)
[2017-02-15] MEDS ORDERED: LIDOCAINE JELLY 2% 30 ML TUBE TOP PRN (17:42)
[2017-02-15] MEDS ORDERED: PIPERACILLIN/TAZOBACTAM 3.375 GM in SODIUM CHLORIDE 0.9% MINIBAG 100 ML IV SCH (18:00)
[2017-02-15] MEDS: PIPERACILLIN/TAZOBACTAM 3.375 GM in SODIUM CHLORIDE 0.9% MINIBAG 100 ML IV SCH (22:41)
[2017-02-16] MEDS: HYDROcod/ACETAM 10 MG/325 MG TABLET PO SCH ×6 (00:51→22:46)
[2017-02-16] MEDS: SIMETHICONE CHEW 80 MG TABLET PO PRN ×2 (01:01→19:31)
[2017-02-16] MEDS: traZODone 50 MG TABLET PO SCH ×4 (06:24→22:13)
[2017-02-16] MEDS: SODIUM CHLORIDE FLUSH 0.9% 10 ML SYRINGE IVP SCH ×3 (06:24→22:13)
[2017-02-16] MEDS: METHADONE 5 MG TABLET PO SCH ×4 (06:24→23:32)
[2017-02-16] MEDS: SODIUM CHLORIDE FLUSH 0.9% 10 ML SYRINGE IVP PRN ×2 (06:25→06:34)
[2017-02-16] MEDS: PANTOPRAZOLE 40 MG VIAL IVP SCH (06:34)
[2017-02-16] MEDS: PIPERACILLIN/TAZOBACTAM 3.375 GM in SODIUM CHLORIDE 0.9% MINIBAG 100 ML IV SCH ×3 (06:35→22:29)
[2017-02-16 08:14] LABS: BASOPHILS % (AUTO) 0.3 %; EOSINOPHILS # (AUTO) 0.2 10^3/uL (0.0-0.7); EOSINOPHILS % (AUTO) 3.1 %; HCT - HEMATOCRIT 28.2 % (42.0-52.0); HGB - HEMOGLOBIN 9.4 g/dL (14.0-18.0); LYMPHOCYTES # (AUTO) 0.3 10^3/uL (1.5-3.5); LYMPHOCYTES % (AUTO) 4.3 %; MEAN CORPUSCULAR HEMOGLOBIN 31.5 pg (27.0-31.0); MEAN CORPUSCULAR HGB CONC 33.2 g/dL (32.0-36.0); MEAN CORPUSCULAR VOLUME 94.8 fL (80.0-94.0); MEAN PLATELET VOLUME 9.6 fL (7.4-11.4); MONOCYTES # (AUTO) 0.3 10^3/uL (0.0-1.0); NEUTROPHILS # (AUTO) 5.9 10^3/uL (1.5-6.6); NEUTROPHILS % (AUTO) 88.3 %; NUCLEATED RED BLOOD CELLS AUTO 0.1 /100WBC; RED BLOOD COUNT 2.98 10^6/uL (4.70-6.10); RED CELL DISTRIBUTION WIDTH 18.7 % (12.0-15.0); UNCORRECTED WHITE BLOOD COUNT 6.6 x10^3/uL; WHITE BLOOD COUNT 6.6 x10^3/uL (4.8-10.8)
[2017-02-16 08:19] LABS: ALBUMIN/GLOBULIN RATIO 0.9 (1.0-2.2); BILIRUBIN,TOTAL 1.2 mg/dL (0.2-1.0); CALCIUM 9.1 mg/dL (8.5-10.3); CREATININE 1.6 mg/dL (0.6-1.2); MAGNESIUM 2.2 mg/dL (1.7-2.8); POTASSIUM 5.2 mmol/L (3.5-5.0); TOTAL PROTEIN 7.4 g/dL (6.7-8.2)
[2017-02-16] MEDS: ASPIRIN EC 81 MG TABLET PO SCH (08:49)
[2017-02-16] MEDS: SPIRONOLACTONE 25 MG TABLET PO SCH (08:49)
[2017-02-16] MEDS: SACCHAROMYCES BOULARDII 250 MG CAPSULE PO SCH ×2 (08:50→19:31)
[2017-02-16] MEDS: FUROSEMIDE 40 MG TABLET PO SCH (08:51)
[2017-02-16] MEDS: ENOXAPARIN 40 MG/0.4 ML SYRINGE SUBQ SCH (08:52)
[2017-02-16] MEDS: POLYETHYLENE GLYCOL 3350 17 GM PACKET PO SCH (08:53)
[2017-02-16] MEDS: ALLOPURINOL 100 MG TABLET PO SCH (08:55)
[2017-02-16] MEDS: LOSARTAN 50 MG TABLET PO SCH (08:55)
[2017-02-16] MEDS ORDERED: SILVER SULFADIAZINE CREAM 25 GM TUBE TOP PRN (09:00)
--- NOTE | 2017-02-16 11:14 | PROVIDER PROGRESS NOTE ---
Objective - Vital Signs/Intake & Output Vital Signs: Vital Signs x48h Temp Pulse Resp BP Pulse Ox 02/16/17 07:47 36.6 C 79 20 112/59 L 100 Intake & Output: Intake & Output 02/13/17 02/14/17 02/15/17 02/16/17 23:59 23:59 23:59 23:59 Intake Total 792 1313 390 Output Total 1325 1600 350 Balance -533 -287 40 - Lab Results Fish Bones: 02/16/17 07:42 02/16/17 07:42 Other Labs: Lab Results x24hrs 02/16/17 02/16/17 Range/Units 07:42 07:42 WBC 6.6 (4.8-10.8) x10^3/uL RBC 2.98 L (4.70-6.10) 10^6/uL Hgb 9.4 L (14.0-18.0) g/dL Hct 28.2 L (42.0-52.0) % MCV 94.8 H (80.0-94.0) fL MCH 31.5 H (27.0-31.0) pg MCHC 33.2 (32.0-36.0) g/dL RDW 18.7 H (12.0-15.0) % Plt Count 64 L (130-450) 10^3/uL MPV 9.6 (7.4-11.4) fL Neut # 5.9 (1.5-6.6) 10^3/uL Lymph # 0.3 L (1.5-3.5) 10^3/uL [place] # 0.3 (0.0-1.0) 10^3/uL Eos # 0.2 (0.0-0.7) 10^3/uL Baso # 0.0 (0.0-0.1) 10^3/uL Absolute Nucleated RBC 0.01 x10^3/uL Nucleated RBC % 0.1 /100WBC Sodium 130 L (135-145) mmol/L Potassium 5.2 H (3.5-5.0) mmol/L Chloride 100 L (101-111) mmol/L Carbon Dioxide 20 L (21-32) mmol/L Anion Gap 10.0 (6-13) BUN 55 H (6-20) mg/dL Creatinine 1.6 H (0.6-1.2) mg/dL Estimated GFR (MDRD) 43 L (>89) Glucose 112 H (70-100) mg/dL Calcium 9.1 (8.5-10.3) mg/dL Magnesium 2.2 (1.7-2.8) mg/dL Total Bilirubin 1.2 H (0.2-1.0) mg/dL AST 35 (10-42) IU/L ALT 52 (10-60) IU/L Alkaline Phosphatase 180 H (42-121) IU/L Total Protein 7.4 (6.7-8.2) g/dL Albumin 3.6 (3.2-5.5) g/dL Globulin 3.8 (2.1-4.2) g/dL Albumin/Globulin Ratio 0.9 L (1.0-2.2) Assessment/Plan - Problem List (1) Cellulitis Impression: (1) Cellulitis discuss with pharmacy about pt's allergy, and which antibiotic on history for pt. Pt had zosyn and vacomycin before for pt's left lower extremity infection. Because the meds affect pt's CKD, then vancomycin was stopped but Zosyn did help pt's wound healing. Because this local bacterial has strong bacterial resistance to Clindamycin, Zosyn is given now. The new blood and wound culture are reviewed, no growth of bacterial. wound care and senior financial consultant ordered, and provider already saw pt, follow up the recommendation and dressing changing. (2) Bilateral edema of lower extremity Impression: stable, continue current treatment chronic condition, stable now. elevated bilateral lower extremity continue home meds Lasix daily lab check, vital monitor (3) Hyponatremia Impression: Na is still 130, continue mild hydration with NS pt's Na is 130 today, pt is with hx of CHF continue mild fluid with NS daily lab test to monitor Na level (4) History of CHF (congestive heart failure) Impression: stable, continue home meds of lasix lower sodium diet, I/O monitor tele, vital monitor (5) Hx of atrial fibrillation without current medication Impression: stable, continue monitor with tele, vital (6) Chronic renal insufficiency Impression: creatinine slight increased from 1.4 to 1.6, will close monitor or may switch the antibiotics stable, continue hydration, hold nephrotoxic agents daily lab monitor (7) Morbid obesity Impression: chronic, fall precaution, encourage pt loss of weight Qualifiers: Site of cellulitis: extremity Site of cellulitis of extremity: lower extremity Laterality: right Qualified Code(s): L03.115 - Cellulitis of right lower limb
[2017-02-16] MEDS: SODIUM CHLORIDE 0.9% 1,000 ML IV SCH ×3 (11:42→22:13)
[2017-02-17] MEDS: HYDROcod/ACETAM 10 MG/325 MG TABLET PO SCH ×6 (01:20→21:07)
[2017-02-17] MEDS: SODIUM CHLORIDE 0.9% 1,000 ML IV SCH ×2 (01:20→20:03)
[2017-02-17] MEDS: PIPERACILLIN/TAZOBACTAM 3.375 GM in SODIUM CHLORIDE 0.9% MINIBAG 100 ML IV SCH (05:04)
[2017-02-17] MEDS: SODIUM CHLORIDE FLUSH 0.9% 10 ML SYRINGE IVP SCH ×3 (05:13→20:49)
[2017-02-17 05:47] LABS: BASOPHILS % (AUTO) 0.7 %; EOSINOPHILS # (AUTO) 0.3 10^3/uL (0.0-0.7); EOSINOPHILS % (AUTO) 4.6 %; HCT - HEMATOCRIT 27.5 % (42.0-52.0); LYMPHOCYTES # (AUTO) 0.3 10^3/uL (1.5-3.5); LYMPHOCYTES % (AUTO) 3.7 %; MEAN CORPUSCULAR HEMOGLOBIN 31.3 pg (27.0-31.0); MEAN CORPUSCULAR HGB CONC 32.8 g/dL (32.0-36.0); MEAN CORPUSCULAR VOLUME 95.5 fL (80.0-94.0); MEAN PLATELET VOLUME 8.1 fL (7.4-11.4); MONOCYTES # (AUTO) 0.3 10^3/uL (0.0-1.0); MONOCYTES % (AUTO) 4.1 %; NEUTROPHILS # (AUTO) 6.1 10^3/uL (1.5-6.6); NEUTROPHILS % (AUTO) 86.9 %; RED BLOOD COUNT 2.88 10^6/uL (4.70-6.10); RED CELL DISTRIBUTION WIDTH 18.3 % (12.0-15.0); UNCORRECTED WHITE BLOOD COUNT 7.1 x10^3/uL; WHITE BLOOD COUNT 7.1 x10^3/uL (4.8-10.8)
[2017-02-17 05:58] LABS: ALBUMIN/GLOBULIN RATIO 0.9 (1.0-2.2); BILIRUBIN,TOTAL 1.4 mg/dL (0.2-1.0); CALCIUM 8.7 mg/dL (8.5-10.3); CREATININE 1.7 mg/dL (0.6-1.2); POTASSIUM 4.9 mmol/L (3.5-5.0); TOTAL PROTEIN 6.8 g/dL (6.7-8.2)
[2017-02-17] MEDS: METHADONE 5 MG TABLET PO SCH ×3 (06:20→22:25)
[2017-02-17] MEDS: PANTOPRAZOLE 40 MG VIAL IVP SCH (06:21)
[2017-02-17] MEDS: SODIUM CHLORIDE FLUSH 0.9% 10 ML SYRINGE IVP PRN (06:21)
[2017-02-17] MEDS: traZODone 50 MG TABLET PO SCH (06:23)
[2017-02-17] MEDS: POLYETHYLENE GLYCOL 3350 17 GM PACKET PO SCH (07:44)
[2017-02-17] MEDS ORDERED: IMIPENEM/CILASTATIN 500 MG in SODIUM CHLORIDE 0.9% MINIBAG 100 ML IV SCH (08:00)
--- NOTE | 2017-02-17 09:48 | CT Preliminary Report ---
Exam: CT Lower Extremity Right W/O IMPRESSION: 1. Moderate edema of the right lower extremity, cellulitis versus dependent edema. 2. No CT evidence of abscess on noncontrast imaging. 3. No evidence of edema or fluid in the muscles or fascial spaces. [facility] SITE ID: [id number]
--- NOTE | 2017-02-17 09:51 | CT Report ---
EXAM: RIGHT LOWER EXTREMITY CT WITHOUT CONTRAST EXAM DATE: 02/17/2017 09:20 AM. CLINICAL HISTORY: Pain and worsening infection, necrotizing fasciitis. COMPARISON: None. TECHNIQUE: Thin-section axial images were acquired of the lower extremity from the mid femur to the f oot without contrast. Post-processing: Coronal and sagittal reformats. Other: None. In accordance with CT protocol optimization, one or more of the following dose reduction techniques w ere utilized for this exam: automated exposure control, adjustment of mA and/or KV based on patient s ize, or use of iterative reconstructive technique. FINDINGS: Bones: No fracture or bony destruction. Joints: Severe degenerative joint disease of the knee, most severe in the medial compartment. Mild an kle and hindfoot degenerative joint disease. Small knee joint effusion. Musculature: Mild diffuse muscle atrophy in the calf. Soft tissues: Circumferential subcutaneous edema in the thigh and calf. No loculated fluid collection or mass on noncontrast CT images. Marked calcified atherosclerosis of the right lower extremity arteries. IMPRESSION: 1. Moderate edema of the right lower extremity, cellulitis versus dependent edema. 2. No CT evidence of abscess on noncontrast imaging. 3. No evidence of edema or fluid in the muscles or fascial spaces. [facility] Referring Provider Line: [phone] SITE ID: [id number]
[2017-02-17] MEDS: LOSARTAN 50 MG TABLET PO SCH (10:32)
[2017-02-17] MEDS: SACCHAROMYCES BOULARDII 250 MG CAPSULE PO SCH ×2 (10:32→17:49)
[2017-02-17] MEDS: FUROSEMIDE 40 MG TABLET PO SCH (10:33)
[2017-02-17] MEDS: SPIRONOLACTONE 25 MG TABLET PO SCH (10:33)
[2017-02-17] MEDS: ASPIRIN EC 81 MG TABLET PO SCH (10:33)
[2017-02-17] MEDS: ENOXAPARIN 40 MG/0.4 ML SYRINGE SUBQ SCH (10:34)
[2017-02-17] MEDS: ALLOPURINOL 100 MG TABLET PO SCH (10:48)
[2017-02-17] MEDS ORDERED: BACITRACIN ZINC OINT 15 GM TOP ONE (11:20)
--- NOTE | 2017-02-17 12:08 | PROVIDER PROGRESS NOTE ---
Subjective - Prog Note Date Prog Note Date: 02/17/17 - Subjective Pt reports feeling: Improved Subjective: pt report he can stay hospital as needed, and accept to D/C SNF as medical needed. Current Medications - Current Medications Current Medications: Active Medications Acetaminophen (Tylenol) 650 mg PO Q4HR PRN PRN Reason: Pain 1 to 4 Acetaminophen/Hydrocodone Bitart (Pixley 10 Mg/325 Mg) 1 tab PO Q4HR [facility] Last Admin: 02/17/17 10:32 Dose: 1 tab Allopurinol (Zyloprim) 300 mg PO DAILY [facility] Last Admin: 02/17/17 10:48 Dose: 300 mg Aspirin (Ecotrin) 81 mg PO DAILY [facility] Last Admin: 02/17/17 10:33 Dose: 81 mg Enoxaparin Sodium (Lovenox) 40 mg SUBQ DAILY [facility] Last Admin: 02/17/17 10:34 Dose: 40 mg Furosemide (Lasix) 120 mg PO DAILY [facility] Last Admin: 02/17/17 10:33 Dose: 120 mg Sodium Chloride (Normal Saline 0.9%) 1,000 mls @ 83.333 mls/hr IV .Q12H [facility] Last Infusion: 02/17/17 08:28 Dose: 0 mls/hr Imipenem/Cilastatin Sodium 500 (mg/ Sodium Chloride) 100 mls @ 200 mls/hr IV Q6H [facility] Last Infusion: 02/17/17 10:58 Dose: Infused Lidocaine HCl (Xylocaine Jelly 2%) 2 ml TOP BID PRN PRN Reason: PAIN Losartan Potassium (Cozaar) 25 mg PO DAILY [facility] Last Admin: 02/17/17 10:32 Dose: 25 mg Methadone HCl () 2.5 mg PO TID [facility] Last Admin: 02/17/17 06:20 Dose: 2.5 mg Morphine Sulfate (Morphine) 2 mg IVP Q2H PRN PRN Reason: PAIN Last Admin: 02/15/17 17:59 Dose: 2 mg Multi-Ingredient Ointment (Zinc Oxide) 1 applic TOP BID [facility] Nystatin (Mycostatin Cream) 1 applic TOP BID [facility] Nystatin (Nystop) 1 applic TOP BID [facility] Ondansetron HCl (Zofran Odt) 4 mg TL Q6HR PRN PRN Reason: Nausea / Vomiting Pantoprazole Sodium (Protonix) 40 mg IVP QDAC [facility] Last Admin: 02/17/17 06:21 Dose: 40 mg Polyethylene Glycol (Miralax) 17 gm PO DAILY [facility] Last Admin: 02/17/17 07:44 Dose: Not Given Saccharomyces Boulardii (Florastor) 250 mg PO BIDWM [facility] Last Admin: 02/17/17 10:32 Dose: 250 mg Silver Sulfadiazine (Silvadene Cream) 1 applic TOP DAILY PRN PRN Reason: NEEDED PER PROVIDER ORDERS Last Admin: 02/15/17 17:00 Dose: 20 gm Simethicone (Mylicon) 80 mg PO QID PRN PRN Reason: GAS Last Admin: 02/16/17 19:31 Dose: 80 mg Sodium Chloride (Normal Saline Flush 0.9%) 10 ml IVP PRN PRN PRN Reason: NEEDED PER PROVIDER ORDERS Last Admin: 02/17/17 06:21 Dose: 10 ml Sodium Chloride (Normal Saline Flush 0.9%) 10 ml IVP Q8HR [facility] Last Admin: 02/17/17 05:13 Dose: Not Given Spironolactone (Aldactone) 100 mg PO DAILY [facility] Last Admin: 02/17/17 10:33 Dose: 100 mg Allopurinol 300 mg PO DAILY 09/22/12 Spironolactone 100 mg PO DAILY 01/26/16 Hydrocodone/Acetaminophen [Hydrocodon-Acetaminophn 10-325] 1 tab PO Q4HR PRN Furosemide [Lasix] 120 mg PO DAILY 10/09/16 Potassium Chloride [Klor-Con M20] 20 meq PO TID 10/09/16 Aspirin [Aspirin EC] 81 mg PO DAILY 02/12/17 Fexofenadine/Pseudoephedrine [Ora-D 24 Hour Tablet] 180 mg PO DAILY Fluticasone [Flonase] 1 inh INH BID 02/12/17 Nitroglycerin [Nitrostat] 0.4 mg PO Q1HR PRN 02/12/17 Trazodone HCl 50 mg PO DAILY 02/12/17 Nystatin [Nystop] 0 gm TOP BID 02/14/17 Silver Sulfadiazine [Ssd] 20 gm TP DAILY 02/14/17 Tramadol HCl 50 mg PO Q6H PRN 02/15/17 Objective - Vital Signs/Intake & Output Reviewed Vital Signs: Yes Vital Signs: Vital Signs x48h Temp Pulse Resp BP Pulse Ox 02/17/17 07:42 36.9 C 76 20 107/70 100 Intake & Output: Intake & Output 02/14/17 02/15/17 02/16/17 02/17/17 23:59 23:59 23:59 23:59 Intake Total 792 1313 1470 950 Output Total 1325 1600 2125 650 Balance -533 -044 -371 300 - Objective General Appearance: positive: No acute distress, Alert. negative: Lethargic Eyes Bilateral: positive: Normal inspection, PERRL, No lid inflammation, Conjunctivae nml ENT: positive: ENT inspection nml, Pharynx nml, No signs of dehydration. negative: Purulent nasal drainage, Pharyngeal erythema, Oral lesions Neck: positive: Nml inspection, Thyroid nml, No JVD, Trachea midline. negative : Thyromegaly, Lymphadenopathy (R), Lymphadenopathy (L), Stiff neck, Swelling/ bruising, Tracheal deviation Respiratory: positive: Chest non-tender, No respiratory distress, Breath sounds nml. negative: Wheezes, Rales, Rhonchi Cardiovascular: positive: Regular rate & rhythm, No murmur, No gallop. negative : Extrasystoles, Tachycardia, Bradycardia, Systolic murmur, Diastolic murmur Peripheral Pulses: 2+ Radial (R), 2+ Radial (L), 2+ Popliteal (R), 2+ Popliteal (L) Abdomen: positive: Non-tender, Nml bowel sounds, No distention. negative: Tenderness, Guarding, Rebound Back: positive: Nml inspection. negative: CVA tenderness (R), CVA tenderness (L ) Skin: positive: Color nml, Warm, Dry, Skin rash, Other (swelling and wound infection at right dorsum of foot and and knee). negative: Cyanosis, Diaphoresis, Pallor Extremities: positive: Full ROM, Pedal edema. negative: Ana Luisa's sign/cords Neurologic/Psychiatric: positive: Oriented x3, Sensation nml. negative: Facial droop, Slurred/abnml speech, Depressed mood/affect - Lab Results Fish Bones: 02/17/17 05:38 02/17/17 05:38 Other Labs: Lab Results x24hrs 02/17/17 02/17/17 Range/Units 05:38 05:38 WBC 7.1 (4.8-10.8) x10^3/uL RBC 2.88 L (4.70-6.10) 10^6/uL Hgb 9.0 L (14.0-18.0) g/dL Hct 27.5 L (42.0-52.0) % MCV 95.5 H (80.0-94.0) fL MCH 31.3 H (27.0-31.0) pg MCHC 32.8 (32.0-36.0) g/dL RDW 18.3 H (12.0-15.0) % Plt Count 59 L (130-450) 10^3/uL MPV 8.1 (7.4-11.4) fL Neut # 6.1 (1.5-6.6) 10^3/uL Lymph # 0.3 L (1.5-3.5) 10^3/uL [place] # 0.3 (0.0-1.0) 10^3/uL Eos # 0.3 (0.0-0.7) 10^3/uL Baso # 0.0 (0.0-0.1) 10^3/uL Absolute Nucleated RBC 0.00 x10^3/uL Nucleated RBC % 0.0 /100WBC Sodium 129 L (135-145) mmol/L Potassium 4.9 (3.5-5.0) mmol/L Chloride 100 L (101-111) mmol/L Carbon Dioxide 20 L (21-32) mmol/L Anion Gap 9.0 (6-13) BUN 56 H (6-20) mg/dL Creatinine 1.7 H (0.6-1.2) mg/dL Estimated GFR (MDRD) 40 L (>89) Glucose 100 (70-100) mg/dL Calcium 8.7 (8.5-10.3) mg/dL Total Bilirubin 1.4 H (0.2-1.0) mg/dL AST 26 (10-42) IU/L ALT 41 (10-60) IU/L Alkaline Phosphatase 174 H (42-121) IU/L Total Protein 6.8 (6.7-8.2) g/dL Albumin 3.3 (3.2-5.5) g/dL Globulin 3.5 (2.1-4.2) g/dL Albumin/Globulin Ratio 0.9 L (1.0-2.2) Assessment/Plan - Problem List (1) Cellulitis Impression: (1) Cellulitis I did not receive phone from [facility] doctor Dr. Watkins about recommendation of treatment to pt's lower extremity infection. I extensively research pt's previous would culture and sensitive study, and find pt had 9 times of would culture and 5 times of sensitive study. The antibiotics of imipenem/ertempenem are sensitive to these study as the antibiotics used in the study. add Imipenem to pt today add nystatin top add zinc oxide top nurse report she call wound consult for dressing changing discuss with pharmacy about pt's allergy, and which antibiotic on history for pt. Pt had zosyn and vacomycin before for pt's left lower extremity infection. Because the meds affect pt's CKD, then vancomycin was stopped but Zosyn did help pt's wound healing. Because this local bacterial has strong bacterial resistance to Clindamycin, Zosyn is given now. The new blood and wound culture are reviewed, no growth of bacterial. wound care and [facility] consultant ordered, and provider already saw pt, follow up the recommendation and dressing changing. (2) Bilateral edema of lower extremity Impression: stable, continue current treatment with lasix check daily lab, correct electrolytic as needed chronic condition, stable now. elevated bilateral lower extremity continue home meds Lasix daily lab check, vital monitor (3) Hyponatremia Impression: Na is 129, continue hydration with NS pt's Na is 130 today, pt is with hx of CHF continue mild fluid with NS daily lab test to monitor Na level (4) History of CHF (congestive heart failure) Impression: stable, continue home meds of lasix lower sodium diet, I/O monitor tele, vital monitor (5) Hx of atrial fibrillation without current medication Impression: stable, continue monitor with tele, vital (6) Chronic renal insufficiency creatinine creatinine slight, may due to antibiotic Zosyn used, D/C Zosyn Qualifiers: Site of cellulitis: extremity Site of cellulitis of extremity: lower extremity Laterality: right Qualified Code(s): L03.115 - Cellulitis of right lower limb
[2017-02-17] MEDS: ZINC OXIDE 20% OINT 28.35 GM TUBE TOP SCH ×2 (14:05→22:22)
[2017-02-17] MEDS: NYSTATIN CREAM 15 GM TUBE TOP SCH ×2 (14:05→21:06)
[2017-02-17] MEDS: NYSTATIN POWDER 15 GM TOP SCH ×2 (14:06→21:06)
[2017-02-17] MEDS: MORPHINE 2 MG/ML SYRINGE IVP PRN (14:08)
--- NOTE | 2017-02-17 16:01 | CONSULTATION NOTE ---
Palliative Care Follow Up - Referral Referring Provider: Tamara MAYFIELD Time of Visit: [phone] Referral setting: Hospitalized patient Referral Reason: Acute on Chronic Pain Management - Information Sources Records Reviewed: RN notes reviewed History obtained from: Patient Exam limitations: No limitations - History of Present Illness Update Brief HPI Update: This is a independent 71-year-old gentleman well-known to me from outpatient, he is being treated for cellulitis that had failed outpatient therapy. He also has CHF, morbid obesity, and fraga catheter. He has ongoing exacerbated bilateral shoulder pain attributed to rotator cuff damage, DJD, and bone spurs. He has been initiated on methadone 2.5 mg 3 times daily, he is tolerating this fine without any sedation, he was to be using the hydrocodone 10 mg/325 mg every 4 hours for breakthrough pain, unfortunately still not change that to as needed dosing. He does feel though currently that the combination of 2 is managing his pain adequately though certainly not ideal. Patient does have acute pain of his right knee from debrided the blood blister, he is currently awaiting the results from a CT scan and ruling out necrotizing fasciitis. He has had multiple rounds of antibiotic therapy, MDRO, and increasing difficulty finding adequate treatment options. Concern for transition planning, patient has been of failure to thrive at home, having increasing difficulty meeting his care needs with his decline in functional status. Am here to provide encouragement for SNF placement to stabilize his current status. Social History - Living Situation Living arrangement: At home Living Situation: Alone (concerns related to failure to thrive at home expressed by nurses, I am in agreement after last home visit) Support System: Has both limited social support service, and has a few neighbors that system at times, and if you paid hours of housekeeping. He does have a son and his though they are minimally involved in his day-to-day care or decision making. Medications/Allergies - Medications Active Medication List: Active Medications Acetaminophen (Tylenol) 650 mg PO Q4HR PRN PRN Reason: Pain 1 to 4 Acetaminophen/Hydrocodone Bitart ([place] 10 Mg/325 Mg) 1 tab PO Q4HR [facility] Last Admin: 02/17/17 14:07 Dose: Not Given Allopurinol (Zyloprim) 300 mg PO DAILY [facility] Last Admin: 02/17/17 10:48 Dose: 300 mg Aspirin (Ecotrin) 81 mg PO DAILY [facility] Last Admin: 02/17/17 10:33 Dose: 81 mg Enoxaparin Sodium (Lovenox) 40 mg SUBQ DAILY [facility] Last Admin: 02/17/17 10:34 Dose: 40 mg Furosemide (Lasix) 120 mg PO DAILY [facility] Last Admin: 02/17/17 10:33 Dose: 120 mg Sodium Chloride (Normal Saline 0.9%) 1,000 mls @ 83.333 mls/hr IV .Q12H [facility] Last Infusion: 02/17/17 08:28 Dose: 0 mls/hr Imipenem/Cilastatin Sodium 500 (mg/ Sodium Chloride) 100 mls @ 200 mls/hr IV Q6H [facility] Lidocaine HCl (Xylocaine Jelly 2%) 2 ml TOP BID PRN PRN Reason: PAIN Losartan Potassium (Cozaar) 25 mg PO DAILY [facility] Last Admin: 02/17/17 10:32 Dose: 25 mg Methadone HCl () 2.5 mg PO TID [facility] Last Admin: 02/17/17 14:06 Dose: 2.5 mg Morphine Sulfate (Morphine) 2 mg IVP Q2H PRN PRN Reason: PAIN Last Admin: 02/17/17 14:08 Dose: 2 mg Multi-Ingredient Ointment (Zinc Oxide) 1 applic TOP BID [facility] Last Admin: 02/17/17 14:05 Dose: 1 applic Nystatin (Mycostatin Cream) 1 applic TOP BID [facility] Last Admin: 02/17/17 14:05 Dose: 1 applic Nystatin (Nystop) 1 applic TOP BID [facility] Last Admin: 02/17/17 14:06 Dose: Not Given Ondansetron HCl (Zofran Odt) 4 mg TL Q6HR PRN PRN Reason: Nausea / Vomiting Pantoprazole Sodium (Protonix) 40 mg IVP QDAC [facility] Last Admin: 02/17/17 06:21 Dose: 40 mg Polyethylene Glycol (Miralax) 17 gm PO DAILY [facility] Last Admin: 02/17/17 07:44 Dose: Not Given Saccharomyces Boulardii (Florastor) 250 mg PO BIDWM [facility] Last Admin: 02/17/17 10:32 Dose: 250 mg Silver Sulfadiazine (Silvadene Cream) 1 applic TOP DAILY PRN PRN Reason: NEEDED PER PROVIDER ORDERS Last Admin: 02/15/17 17:00 Dose: 20 gm Simethicone (Mylicon) 80 mg PO QID PRN PRN Reason: GAS Last Admin: 02/16/17 19:31 Dose: 80 mg Sodium Chloride (Normal Saline Flush 0.9%) 10 ml IVP PRN PRN PRN Reason: NEEDED PER PROVIDER ORDERS Last Admin: 02/17/17 06:21 Dose: 10 ml Sodium Chloride (Normal Saline Flush 0.9%) 10 ml IVP Q8HR [facility] Last Admin: 02/17/17 05:13 Dose: Not Given Spironolactone (Aldactone) 100 mg PO DAILY [facility] Last Admin: 02/17/17 10:33 Dose: 100 mg Allopurinol 300 mg PO DAILY 09/22/12 Spironolactone 100 mg PO DAILY 01/26/16 Hydrocodone/Acetaminophen [Hydrocodon-Acetaminophn 10-325] 1 tab PO Q4HR PRN Furosemide [Lasix] 120 mg PO DAILY 10/09/16 Potassium Chloride [Klor-Con M20] 20 meq PO TID 10/09/16 Aspirin [Aspirin EC] 81 mg PO DAILY 02/12/17 Fexofenadine/Pseudoephedrine [Ora-D 24 Hour Tablet] 180 mg PO DAILY Fluticasone [Flonase] 1 inh INH BID 02/12/17 Nitroglycerin [Nitrostat] 0.4 mg PO Q1HR PRN 02/12/17 Trazodone HCl 50 mg PO DAILY 02/12/17 Nystatin [Nystop] 0 gm TOP BID 02/14/17 Silver Sulfadiazine [Ssd] 20 gm TP DAILY 02/14/17 Tramadol HCl 50 mg PO Q6H PRN 02/15/17 - Allergies Allergies/Adverse Reactions: Allergies Allergy/AdvReac Type Severity Reaction Status Date / Time cephalexin monohydrate * Allergy Severe Anaphylaxis Verified 02/14/17 12:07 [From Keflex] nitrofurantoin Allergy Mild Rash Verified 02/14/17 12:07 lorazepam Allergy Unknown UNKNOWN Verified 02/14/17 12:07 Review of Systems - Constitutional Constitutional: reports: Fatigue, Malaise, Weakness - Eyes Eyes: denies: Corrective lenses - Ears, Nose & Throat Ears, Nose & Throat: reports: Hearing loss (mild), Hoarseness - Cardiovascular Cardiovascular: reports: Irregular heart rate, Exertional dyspnea, Decr. 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 years with MDRO, is scheduled to see urologist in [facility] in February for possible suprapubic, being at [facility] will help facilitate transportation for this) - Musculoskeletal Musculoskeletal: reports: Muscle aches, Stiffness, Muscle weakness, Joint pain, Assistive devices, Transfer issues, Other (feels can be more independent with scooter wheelchair, hoping to "change out" on way to SNF) - Integumentary Integumentary: reports: Dryness, Other (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; new right knee blood blister and wound recently debrided; oozing) - Neurological Neurological: reports: General weakness, Other (unable to sleep comfortably in bed; sleeps in recliner at home) - Psychiatric Psychiatric: reports: Depression (disliked the trazadone, made him feel jittery ; had chosen because of med cost; would prefer to try SSRI, but cannot afford;) , Anxiety (about shelter plan and current situation) - Endocrine Endocrine: denies: Diabetes type 2, Hyperthyroidism - Hematologic/Lymphatic Hematologic/Lymphatic: reports: Bruising, Bleeding tendencies, Recurrent infections (multiple rounds of AB for both wounds and UTI's) - All Other Systems All Other Systems: reports: Reviewed and negative Physical Exam - Vital Signs Vital Signs: Vital Signs x48h Temp Pulse Resp BP Pulse Ox 02/17/17 15:45 36.5 C 90 16 135/59 H 100 - Physical Exam General Appearance: positive: Alert, Anxious Eyes Bilateral: positive: Normal inspection ENT: positive: No signs of dehydration Neck: positive: Trachea midline Cardiovascular: positive: Irregularly irregular Respiratory: positive: Diminished in bases. negative: Wheezes, Rales Abdomen: positive: Non-tender, Soft, Nml bowel sounds, Obese Skin: positive: Bruising, Wound (currently addressed by [facility] nurse; nurse in home setting; oozing through dressing; bilateral dressings on) Extremities: positive: Pedal edema Neurologic/Psychiatric: positive: Oriented x3, Depressed mood/affect Palliative Care Pain: Comment (feels current regimen working; remains still quite uncomfortable ; had just transferred to the CT table and exacerbated his shoulder pain; agreed to consider ongoing titration;) Tiredness/Fatigue: Moderate (4-6) Drowsiness/Sedation: None Nausea: None Depression: Moderate (4-6) Anxiety: Mild (1-3) Dyspnea: Mild (1-3) Anorexia: None (had constipation now resolved appetite improved) Sleep: Variable sleep pattern Constipation: No Feelings of wellbeing/Perceived Quality of Life: Poor, Worsening Performance Status: Patient spending most of his time up in recliner or wheelchair, does need assistance to commode. Depending on his tolerance 1-2 person assist. At home he was receiving bathing assistance through home health 3 times a week. Was able though to ambulate with walker short distances in his mobile home. His goal is to be able to be independent again, though has not participated much in therapies here, feels like he will be able to engage with this and has transferred to the SNF. - Palliative Care Discussion: Patient is somewhat anxious, about understanding his current treatment plan. Did agree with follow-up with hospitalist to interpret medical terms and improve his understanding. Did review he is currently receiving yet another different kind of antibiotic, this only comes in IV form. Awaiting results of CT scan to rule out serious infection. Awaiting still may change underlying regimen. At this point in time the plan is for a PICC line to be placed tomorrow, and if patient stable discharge to a SNF over the weekend. At this point in time patient is in agreement to transfer to [facility]. The CELL TUBER MACHINE awaiting response from assisted to confirm this plan. Reiterated the patient's increased weakness, difficulty with diarrhea and antibiotics, need for increased support, and possible IV antibiotics on discharge would necessitate increased support. He would like to return home, but would need to be more functional. He also has follow-up for urology in [place], and this would make it quite convenient for him to follow up with this appointment. One of the barriers, as he perceives he would do better with his scooter, and was wondering about facilitating to be able to get the scooter up to sit down go with him.Patient is aware of the seriousness of his illness, that his options are becoming more limited, and is hopeful for a good outcome regarding this latest hospitalization. He does admit that he is "wearing out" and is indeed worried about the future, and how he is going to manage long-term. Results - Lab Results Lab results reviewed: Yes Fish Bones: 02/17/17 05:38 02/17/17 05:38 Lab and Imaging Results: Lab Results x24hrs 02/17/17 02/17/17 Range/Units 05:38 05:38 WBC 7.1 (4.8-10.8) x10^3/uL RBC 2.88 L (4.70-6.10) 10^6/uL Hgb 9.0 L (14.0-18.0) g/dL Hct 27.5 L (42.0-52.0) % MCV 95.5 H (80.0-94.0) fL MCH 31.3 H (27.0-31.0) pg MCHC 32.8 (32.0-36.0) g/dL RDW 18.3 H (12.0-15.0) % Plt Count 59 L (130-450) 10^3/uL MPV 8.1 (7.4-11.4) fL Neut # 6.1 (1.5-6.6) 10^3/uL Lymph # 0.3 L (1.5-3.5) 10^3/uL [place] # 0.3 (0.0-1.0) 10^3/uL Eos # 0.3 (0.0-0.7) 10^3/uL Baso # 0.0 (0.0-0.1) 10^3/uL Absolute Nucleated RBC 0.00 x10^3/uL Nucleated RBC % 0.0 /100WBC Sodium 129 L (135-145) mmol/L Potassium 4.9 (3.5-5.0) mmol/L Chloride 100 L (101-111) mmol/L Carbon Dioxide 20 L (21-32) mmol/L Anion Gap 9.0 (6-13) BUN 56 H (6-20) mg/dL Creatinine 1.7 H (0.6-1.2) mg/dL Estimated GFR (MDRD) 40 L (>89) Glucose 100 (70-100) mg/dL Calcium 8.7 (8.5-10.3) mg/dL Total Bilirubin 1.4 H (0.2-1.0) mg/dL AST 26 (10-42) IU/L ALT 41 (10-60) IU/L Alkaline Phosphatase 174 H (42-121) IU/L Total Protein 6.8 (6.7-8.2) g/dL Albumin 3.3 (3.2-5.5) g/dL Globulin 3.5 (2.1-4.2) g/dL Albumin/Globulin Ratio 0.9 L (1.0-2.2) Impression and Recommendations - Palliative Care Impression: This is a 71-year-old gentleman with multiple comorbidities, that are impacting both his physical and emotional health. He is currently acutely hospitalized, for ongoing issues regarding his wounds and having failed outpatient therapy. Patient has been doing more poorly at home, with increased pain, decreased functional status, and ongoing complications related to his comorbidities. He does perceive his quality of life is worsening, his goal is to be able to return home, and manage independently again, and improve his pain management. Recommendations/Counseling Done: 1.Depression poorly controlled. Patient did not tolerate the trazodone, side effects included jitteriness and feeling poorly. Related would recommend transitioning to SSRI, escitalopram at 10 mg daily. Patient has no outpatient prescription drug coverage, which had limited our options. If patient in SNF would be able to trial and see if effective, and can follow-up with "[facility] " on discharge if effective. 2. Acute on chronic pain. Patient is tolerating the methadone without any sedation, would recommend increasing at on 02/18 by another 2.5 mg. Dosing would be 2.5 mg a.m. 2.5 mg 1400, 5 mg at at bedtime at 2200. We will continue to titrate every 3-4 days. Please change hydrocodone to as needed dosing, patient has been using every 4 hours, goal is to decrease to 2-3 times a day for breakthrough pain only. 3. Failure to thrive. Patient at this point in time, with decreased functional status increased shoulder pain, and now with loose stools with most likely unable to manage at home. At this point in time patient is amendable to short SNF stay, recognizing he would need to participate in rehab therapies, most likely extended IV antibiotics including PICC line, and would have his medical care with oversight. Patient's big barrier, as he would like to have a scooter, it does give him more freedom as far as mobility. He cannot wheel with his current shoulder pain and rotator cuff tears, did contact the [employer] MACHINE to see if would be able to facilitate obtaining this prior to discharge. Time Spent: 60 minutes with greater than 50% of this done in counseling and coordination of care regarding pain/depression/transition planning.
[2017-02-17] MEDS: IMIPENEM/CILASTATIN 500 MG in SODIUM CHLORIDE 0.9% MINIBAG 100 ML IV SCH ×2 (16:26→22:22)
[2017-02-18] MEDS: HYDROcod/ACETAM 10 MG/325 MG TABLET PO SCH ×6 (01:21→21:32)
[2017-02-18] MEDS: IMIPENEM/CILASTATIN 500 MG in SODIUM CHLORIDE 0.9% MINIBAG 100 ML IV SCH ×4 (03:58→20:31)
[2017-02-18] MEDS: METHADONE 5 MG TABLET PO SCH ×3 (06:04→21:32)
[2017-02-18 06:11] LABS: BASOPHILS # (AUTO) 0.1 10^3/uL (0.0-0.1); BASOPHILS % (AUTO) 1.6 %; EOSINOPHILS # (AUTO) 0.2 10^3/uL (0.0-0.7); EOSINOPHILS % (AUTO) 3.5 %; HCT - HEMATOCRIT 26.3 % (42.0-52.0); HGB - HEMOGLOBIN 8.7 g/dL (14.0-18.0); LYMPHOCYTES # (AUTO) 0.2 10^3/uL (1.5-3.5); LYMPHOCYTES % (AUTO) 3.7 %; MEAN CORPUSCULAR HEMOGLOBIN 31.5 pg (27.0-31.0); MEAN CORPUSCULAR VOLUME 95.6 fL (80.0-94.0); MEAN PLATELET VOLUME 8.7 fL (7.4-11.4); MONOCYTES # (AUTO) 0.3 10^3/uL (0.0-1.0); MONOCYTES % (AUTO) 3.9 %; NEUTROPHILS # (AUTO) 5.8 10^3/uL (1.5-6.6); NEUTROPHILS % (AUTO) 87.3 %; NUCLEATED RED BLOOD CELLS AUTO 0.1 /100WBC; RED BLOOD COUNT 2.75 10^6/uL (4.70-6.10); RED CELL DISTRIBUTION WIDTH 18.7 % (12.0-15.0); UNCORRECTED WHITE BLOOD COUNT 6.6 x10^3/uL; WHITE BLOOD COUNT 6.6 x10^3/uL (4.8-10.8)
[2017-02-18 06:15] LABS: ALBUMIN/GLOBULIN RATIO 0.9 (1.0-2.2); BILIRUBIN,TOTAL 1.3 mg/dL (0.2-1.0); CALCIUM 8.7 mg/dL (8.5-10.3); CREATININE 1.8 mg/dL (0.6-1.2); POTASSIUM 4.8 mmol/L (3.5-5.0); TOTAL PROTEIN 6.8 g/dL (6.7-8.2)
[2017-02-18] MEDS: SODIUM CHLORIDE FLUSH 0.9% 10 ML SYRINGE IVP SCH ×3 (06:25→20:31)
[2017-02-18] MEDS: PANTOPRAZOLE 40 MG VIAL IVP SCH (06:25)
--- NOTE | 2017-02-18 07:32 | PROVIDER PROGRESS NOTE ---
Subjective - Prog Note Date Prog Note Date: 02/18/17 - Subjective Pt reports feeling: Improved Subjective: pt state to me and today nurse that he want to be discharged to home, not nurse home or SNF, and continue to refuse to have PICC line. Pt refused to sign the consent for PICC line in the front of me and PICC team yesterday, even he agreed to be D/C to SNF and have PICC line on yesterday morning. Pt told he had diarrhea on last night but night nurse report me he had loose stool, but no diarrhea. I told nurse , I will check the stool to see if diarrhea or loose stool. Current Medications - Current Medications Current Medications: Active Medications Acetaminophen (Tylenol) 650 mg PO Q4HR PRN PRN Reason: Pain 1 to 4 Acetaminophen/Hydrocodone Bitart ([place] 10 Mg/325 Mg) 1 tab PO Q4HR [facility] Last Admin: 02/18/17 12:52 Dose: 1 tab Allopurinol (Zyloprim) 300 mg PO DAILY [facility] Last Admin: 02/18/17 10:06 Dose: 300 mg Aspirin (Ecotrin) 81 mg PO DAILY [facility] Last Admin: 02/18/17 09:08 Dose: 81 mg Furosemide (Lasix) 120 mg PO DAILY [facility] Last Admin: 02/18/17 10:06 Dose: 120 mg Sodium Chloride (Normal Saline 0.9%) 1,000 mls @ 83.333 mls/hr IV .Q12H [facility] Last Infusion: 02/18/17 11:37 Dose: 0 mls/hr Imipenem/Cilastatin Sodium 500 (mg/ Sodium Chloride) 100 mls @ 200 mls/hr IV Q6H [facility] Last Infusion: 02/18/17 10:13 Dose: Infused Lidocaine HCl (Xylocaine Jelly 2%) 2 ml TOP BID PRN PRN Reason: PAIN Losartan Potassium (Cozaar) 25 mg PO DAILY [facility] Last Admin: 02/18/17 10:07 Dose: Not Given Methadone HCl () 2.5 mg PO TID [facility] Last Admin: 02/18/17 14:00 Dose: 2.5 mg Morphine Sulfate (Morphine) 2 mg IVP Q2H PRN PRN Reason: PAIN Last Admin: 02/17/17 14:08 Dose: 2 mg Multi-Ingredient Ointment (Zinc Oxide) 1 applic TOP BID [facility] Last Admin: 02/18/17 11:39 Dose: Not Given Nystatin (Mycostatin Cream) 1 applic TOP BID [facility] Last Admin: 02/18/17 11:39 Dose: Not Given Nystatin (Nystop) 1 applic TOP BID [facility] Last Admin: 02/18/17 11:39 Dose: Not Given Ondansetron HCl (Zofran Odt) 4 mg TL Q6HR PRN PRN Reason: Nausea / Vomiting Pantoprazole Sodium (Protonix) 40 mg IVP QDAC [facility] Last Admin: 02/18/17 06:25 Dose: 40 mg Polyethylene Glycol (Miralax) 17 gm PO DAILY [facility] Last Admin: 02/18/17 07:54 Dose: Not Given Saccharomyces Boulardii (Florastor) 500 mg PO BIDWM [facility] Last Admin: 02/18/17 12:10 Dose: 500 mg Silver Sulfadiazine (Silvadene Cream) 1 applic TOP DAILY PRN PRN Reason: NEEDED PER PROVIDER ORDERS Last Admin: 02/15/17 17:00 Dose: 20 gm Simethicone (Mylicon) 80 mg PO QID PRN PRN Reason: GAS Last Admin: 02/16/17 19:31 Dose: 80 mg Sodium Chloride (Normal Saline Flush 0.9%) 10 ml IVP PRN PRN PRN Reason: NEEDED PER PROVIDER ORDERS Last Admin: 02/17/17 06:21 Dose: 10 ml Sodium Chloride (Normal Saline Flush 0.9%) 10 ml IVP Q8HR [facility] Last Admin: 02/18/17 14:01 Dose: Not Given Spironolactone (Aldactone) 100 mg PO DAILY [facility] Last Admin: 02/18/17 10:06 Dose: 100 mg Allopurinol 300 mg PO DAILY 09/22/12 Spironolactone 100 mg PO DAILY 01/26/16 Hydrocodone/Acetaminophen [Hydrocodon-Acetaminophn 10-325] 1 tab PO Q4HR PRN Furosemide [Lasix] 120 mg PO DAILY 10/09/16 Potassium Chloride [Klor-Con M20] 20 meq PO TID 10/09/16 Aspirin [Aspirin EC] 81 mg PO DAILY 02/12/17 Fexofenadine/Pseudoephedrine [Ora-D 24 Hour Tablet] 180 mg PO DAILY Fluticasone [Flonase] 1 inh INH BID 02/12/17 Nitroglycerin [Nitrostat] 0.4 mg PO Q1HR PRN 02/12/17 Trazodone HCl 50 mg PO DAILY 02/12/17 Nystatin [Nystop] 0 gm TOP BID 02/14/17 Silver Sulfadiazine [Ssd] 20 gm TP DAILY 02/14/17 Tramadol HCl 50 mg PO Q6H PRN 02/15/17 Objective - Vital Signs/Intake & Output Reviewed Vital Signs: Yes Vital Signs: Vital Signs x48h Temp Pulse Resp BP Pulse Ox 02/18/17 00:00 36.5 C 80 18 118/54 L 100 Intake & Output: Intake & Output 02/15/17 02/16/17 02/17/17 02/18/17 23:59 23:59 23:59 23:59 Intake Total 1313 1470 1920 250 Output Total 1600 2125 2850 600 Balance -287 -655 -930 -350 - Objective General Appearance: positive: No acute distress, Alert. negative: Lethargic Eyes Bilateral: positive: Normal inspection, PERRL, EOMI, No lid inflammation, Conjunctivae nml ENT: positive: ENT inspection nml, Pharynx nml, No signs of dehydration. negative: Purulent nasal drainage, Pharyngeal erythema, Oral lesions Neck: positive: Nml inspection, Thyroid nml, No JVD, Trachea midline. negative : Thyromegaly, Lymphadenopathy (R), Lymphadenopathy (L), Stiff neck, Tracheal deviation Respiratory: positive: Chest non-tender, No respiratory distress, Breath sounds nml. negative: Wheezes, Rales, Rhonchi Cardiovascular: positive: Regular rate & rhythm, No murmur, No gallop. negative : Irregularly irregular, Extrasystoles, Tachycardia, Bradycardia, Systolic murmur, Diastolic murmur Peripheral Pulses: 2+ Radial (R), 2+ Radial (L), 2+ Popliteal (R), 2+ Popliteal (L) Abdomen: positive: Non-tender, Nml bowel sounds. negative: Tenderness, Guarding , Rebound Back: positive: Nml inspection. negative: CVA tenderness (R), CVA tenderness (L ) Skin: positive: No rash, Warm, Dry. negative: Cyanosis, Diaphoresis, Pallor Extremities: positive: Non-tender, Full ROM, Nml appearance. negative: Calf tenderness, Ana Luisa's sign/cords Neurologic/Psychiatric: positive: Oriented x3, Sensation nml. negative: Sensory loss, Facial droop, Slurred/abnml speech - Lab Results Fish Bones: 02/18/17 05:50 02/18/17 05:50 Other Labs: Lab Results x24hrs 02/18/17 02/18/17 Range/Units 05:50 05:50 WBC 6.6 (4.8-10.8) x10^3/uL RBC 2.75 L (4.70-6.10) 10^6/uL Hgb 8.7 L (14.0-18.0) g/dL Hct 26.3 L (42.0-52.0) % MCV 95.6 H (80.0-94.0) fL MCH 31.5 H (27.0-31.0) pg MCHC 33.0 (32.0-36.0) g/dL RDW 18.7 H (12.0-15.0) % Plt Count 63 L (130-450) 10^3/uL MPV 8.7 (7.4-11.4) fL Neut # 5.8 (1.5-6.6) 10^3/uL Lymph # 0.2 L (1.5-3.5) 10^3/uL [place] # 0.3 (0.0-1.0) 10^3/uL Eos # 0.2 (0.0-0.7) 10^3/uL Baso # 0.1 (0.0-0.1) 10^3/uL Absolute Nucleated RBC 0.00 x10^3/uL Nucleated RBC % 0.1 /100WBC Sodium 131 L (135-145) mmol/L Potassium 4.8 (3.5-5.0) mmol/L Chloride 102 (101-111) mmol/L Carbon Dioxide 20 L (21-32) mmol/L Anion Gap 9.0 (6-13) BUN 58 H (6-20) mg/dL Creatinine 1.8 H (0.6-1.2) mg/dL Estimated GFR (MDRD) 37 L (>89) Glucose 97 (70-100) mg/dL Calcium 8.7 (8.5-10.3) mg/dL Total Bilirubin 1.3 H (0.2-1.0) mg/dL AST 21 (10-42) IU/L ALT 35 (10-60) IU/L Alkaline Phosphatase 164 H (42-121) IU/L Total Protein 6.8 (6.7-8.2) g/dL Albumin 3.3 (3.2-5.5) g/dL Globulin 3.5 (2.1-4.2) g/dL Albumin/Globulin Ratio 0.9 L (1.0-2.2) Assessment/Plan - Problem List (1) Cellulitis Impression: (1) Cellulitis pt report drainage is reduced, pain is reduced. CT of right lower extremity is reviewed. It is moderate edema, and cellulitis. There is no abscess, no evidence of edema or fluid in the muscle or fascial space. continue current treatment closely monitor renal function, adjust dosage as needed I did not receive phone from [facility] doctor Dr. Watkins about recommendation of treatment to pt's lower extremity infection. I extensively research pt's previous would culture and sensitive study, and find pt had 9 times of would culture and 5 times of sensitive study. The antibiotics of imipenem/ertempenem are sensitive to these study as the antibiotics used in the study. add Imipenem to pt today add nystatin top add zinc oxide top nurse report she call wound consult for dressing changing discuss with pharmacy about pt's allergy, and which antibiotic on history for pt. Pt had zosyn and vacomycin before for pt's left lower extremity infection. Because the meds affect pt's CKD, then vancomycin was stopped but Zosyn did help pt's wound healing. Because this local bacterial has strong bacterial resistance to Clindamycin, Zosyn is given now. The new blood and wound culture are reviewed, no growth of bacterial. wound care and polymer materials consultant ordered, and provider already saw pt, follow up the recommendation and dressing changing. (2) Bilateral edema of lower extremity Impression: continue treat with lasix, and spironolactone daily lab and vital monitor stable, continue current treatment with lasix check daily lab, correct electrolytic as needed chronic condition, stable now. elevated bilateral lower extremity continue home meds Lasix daily lab check, vital monitor (3) Hyponatremia Impression: better, Na 131 today, continue current treatment Na is 129, continue hydration with NS pt's Na is 130 today, pt is with hx of CHF continue mild fluid with NS daily lab test to monitor Na level (4) History of CHF (congestive heart failure) Impression: stable, continue home meds of lasix lower sodium diet, I/O monitor tele, vital monitor (5) Hx of atrial fibrillation without current medication Impression: stable, continue monitor with tele, vital (6) Chronic renal insufficiency slight increase creatinine and BUN closely monitor, adjust meds dosage with renal function as needed Qualifiers: Site of cellulitis: extremity Site of cellulitis of extremity: lower extremity Laterality: right Qualified Code(s): L03.115 - Cellulitis of right lower limb
[2017-02-18] MEDS: POLYETHYLENE GLYCOL 3350 17 GM PACKET PO SCH (07:54)
[2017-02-18] MEDS: ASPIRIN EC 81 MG TABLET PO SCH (09:08)
[2017-02-18] MEDS: SACCHAROMYCES BOULARDII 250 MG CAPSULE PO SCH ×3 (09:09→16:40)
[2017-02-18] MEDS: FUROSEMIDE 40 MG TABLET PO SCH (10:06)
[2017-02-18] MEDS: SPIRONOLACTONE 25 MG TABLET PO SCH (10:06)
[2017-02-18] MEDS: ALLOPURINOL 100 MG TABLET PO SCH (10:06)
[2017-02-18] MEDS: LOSARTAN 50 MG TABLET PO SCH (10:07)
[2017-02-18] MEDS: SODIUM CHLORIDE 0.9% 1,000 ML IV SCH ×2 (10:11→16:43)
[2017-02-18] MEDS: NYSTATIN CREAM 15 GM TUBE TOP SCH ×2 (11:39→20:31)
[2017-02-18] MEDS: ZINC OXIDE 20% OINT 28.35 GM TUBE TOP SCH ×2 (11:39→20:31)
[2017-02-18] MEDS: NYSTATIN POWDER 15 GM TOP SCH ×2 (11:39→20:06)
[2017-02-18] MEDS: AMOX/CLAV 875 MG/125 MG TABLET PO SCH ×2 (16:40→20:28)
[2017-02-19] MEDS ORDERED: MIN OIL/DIMETHICON/COCONUT OIL 92 GM TUBE TOP PRN (00:19)
[2017-02-19] MEDS ORDERED: ZINC OXIDE 20% OINT 28.35 GM TUBE TOP PRN (00:27)
[2017-02-19] MEDS: HYDROcod/ACETAM 10 MG/325 MG TABLET PO SCH ×3 (00:36→08:17)
[2017-02-19] MEDS: METHADONE 5 MG TABLET PO SCH (05:52)
[2017-02-19 05:58] LABS: BASOPHILS % (AUTO) 0.3 %; EOSINOPHILS # (AUTO) 0.3 10^3/uL (0.0-0.7); EOSINOPHILS % (AUTO) 4.5 %; HCT - HEMATOCRIT 26.9 % (42.0-52.0); HGB - HEMOGLOBIN 8.8 g/dL (14.0-18.0); LYMPHOCYTES # (AUTO) 0.5 10^3/uL (1.5-3.5); LYMPHOCYTES % (AUTO) 6.8 %; MEAN CORPUSCULAR HEMOGLOBIN 31.7 pg (27.0-31.0); MEAN CORPUSCULAR HGB CONC 32.8 g/dL (32.0-36.0); MEAN CORPUSCULAR VOLUME 96.6 fL (80.0-94.0); MEAN PLATELET VOLUME 8.5 fL (7.4-11.4); MONOCYTES # (AUTO) 0.3 10^3/uL (0.0-1.0); NEUTROPHILS # (AUTO) 5.9 10^3/uL (1.5-6.6); NEUTROPHILS % (AUTO) 84.4 %; NUCLEATED RED BLOOD CELLS AUTO 0.1 /100WBC; RED BLOOD COUNT 2.79 10^6/uL (4.70-6.10); RED CELL DISTRIBUTION WIDTH 18.9 % (12.0-15.0)
[2017-02-19 06:11] LABS: ALBUMIN/GLOBULIN RATIO 0.9 (1.0-2.2); BILIRUBIN,TOTAL 1.1 mg/dL (0.2-1.0); CALCIUM 8.9 mg/dL (8.5-10.3); CREATININE 1.8 mg/dL (0.6-1.2); POTASSIUM 4.6 mmol/L (3.5-5.0); TOTAL PROTEIN 7.1 g/dL (6.7-8.2)
[2017-02-19] MEDS: SODIUM CHLORIDE 0.9% 1,000 ML IV SCH (06:46)
[2017-02-19] MEDS: SODIUM CHLORIDE FLUSH 0.9% 10 ML SYRINGE IVP SCH ×2 (06:47→10:19)
[2017-02-19] MEDS: PANTOPRAZOLE 40 MG VIAL IVP SCH (06:47)
[2017-02-19] MEDS: ASPIRIN EC 81 MG TABLET PO SCH (08:14)
[2017-02-19] MEDS: ALLOPURINOL 100 MG TABLET PO SCH (08:14)
[2017-02-19] MEDS: AMOX/CLAV 875 MG/125 MG TABLET PO SCH (08:15)
[2017-02-19] MEDS: SACCHAROMYCES BOULARDII 250 MG CAPSULE PO SCH (08:15)
[2017-02-19] MEDS: LOSARTAN 50 MG TABLET PO SCH (08:15)
[2017-02-19] MEDS: SPIRONOLACTONE 25 MG TABLET PO SCH (08:16)
[2017-02-19] MEDS: FUROSEMIDE 40 MG TABLET PO SCH (08:16)
[2017-02-19] MEDS: POLYETHYLENE GLYCOL 3350 17 GM PACKET PO SCH (08:17)
[2017-02-19] MEDS: SIMETHICONE CHEW 80 MG TABLET PO PRN (09:19)
--- NOTE | 2017-02-19 11:46 | Discharge Plan ---
Discharge Plan Disposition: Home, Self Care Condition: Poor Prescriptions: Amox/Clav 875/125 [Augmentin 875/125] 1 tab PO BID #20 tablet Nystatin Cream [Mycostatin Cream] 1 applic TOP BID #6 tube Diet: Cardiac Activity Restrictions: Activity as Tolerated Shower Restrictions: No Weight Bearing: Full Weight Instruction Topics: Methadone tablets Additional Instructions or Follow Up instructions: May see PCP in one week, and see infection disease doctor in two weeks Patient request to be discharged to home today. Patient is advise his medical condition is poor and can be deteriorated. Patient is advised, should the symptom return or worsen, call 911 or go to the nearest emergence department to seek help. Patient is welcomed to our service as needed. Follow-Up Care: [facility], [facility] - [facility], [facility] - RN, [facility] - PT, [facility] [place] [facility], [facility] - Medical No Smoking: If you smoke, Please STOP! Call for help. Follow-up with: Sunil Mcleod MD [Primary Care Provider] -
--- NOTE | 2017-02-19 11:59 | DISCHARGE SUMMARY ---
"Discharge Summary Admit Date: 02/14/17 Discharge Date: 02/19/17 Discharging Provider: KERNS Primary Care Provider: Sunil Townsend Condition at Discharge: Poor Discharge Disposition: 01 Home, Self Care Discharge Facility Name: home - DIAGNOSES Admission Diagnoses: (1) Cellulitis (2) Bilateral edema of lower extremity (3) chronic Hyponatremia (4) History of CHF (congestive heart failure) (5) Hx of atrial fibrillation without current medication (6) Chronic renal insufficiency (7) Morbid obesity (8) venous stasis ulcer (9) medical non-compliant Discharge Diagnoses with Status of Each Condition: (1) Cellulitis improved, not resolved. (2) Bilateral edema of lower extremity stable (3) chronic Hyponatremia stable (4) History of CHF (congestive heart failure) stable (5) Hx of atrial fibrillation without current medication controlled HR, stable. (6) Chronic renal insufficiency stable (7) Morbid obesity stable, advised to pt loss of weight (8) venous stasis ulcer improved, not resolved (9) medical non-compliant advised to pt. - HPI History of Present Illness: please refer from Ms Ag's HPI on 02/14/17. - CONSULTS | PROCEDURES Consultations: consulted with ID doctor from [facility]. - HOSPITAL COURSE Hospital Course: Patient was admitted for chief complaint of cellulitis on right lower extremity and venous stasis ulcer. Pt had multiple admissions for this problem at either hospital or office or wound care center. Pt had 9 times wound culture and 5 times of sensitive antibiotics study. Patient continue to have this problem for this time admission. Patient failed to oral antibiotic treatment as well. Patient had stage III CKD. Renal function is sensitively slow down to antibiotics treatment. This time pt's wound culture, blood culture are negative , may due to pt is current on antibiotics treatment. Patient's antibiotic treatment has been adjusted according to pt's previous culture and sensitivity study, renal function status, and local bacterial resistance status at this time. because pt's limited capability of ADL, high risk of fall, and morbidity of obese, and other complicated medical condition, we worked very hard to attempt to find the replacement for pt. We did find a replacement for pt. Patient stated to me and other steam table worker, he agreed to d/c to SNF or other dental office assistant nurse facility, but pt finally changed his mind to refused to go to SNF or other dental office assistant nurse home. Pt requested to be D/C to home today. Pt stated to me and other steam table worker he agreed to have PICC line, I called PICC team and had the order for PICC, but pt refused to have PICC finally when PICC team came to pt's bed side and tried to do that. Pt also refused to have peripheral IV access in the last two days as well. Patient failed to oral antibiotics treatment, and came to hospital for help but he refused to all above procedure. - ALLERGIES Allergies/Adverse Reactions: Allergies Allergy/AdvReac Type Severity Reaction Status Date / Time cephalexin monohydrate * Allergy Severe Anaphylaxis Verified 02/20/17 06:44 [From [facility]] nitrofurantoin Allergy Mild Rash Verified 02/20/17 06:44 lorazepam Allergy Unknown UNKNOWN Verified 02/20/17 06:44 - MEDICATIONS Home Medications: Ambulatory Orders Medication Instructions Recorded Confirmed Allopurinol 300 mg PO DAILY 09/22/12 02/15/17 Spironolactone 100 mg PO DAILY 01/26/16 02/15/17 Hydrocodone/Acetaminophen 1 tab PO Q4HR PRN 07/20/16 02/15/17 [Hydrocodon-Acetaminophn 10-325] Furosemide [Lasix] 120 mg PO DAILY 10/09/16 02/15/17 Potassium Chloride [Klor-Con M20] 20 meq PO TID 10/09/16 02/15/17 Aspirin [Aspirin EC] 81 mg PO DAILY 02/12/17 02/15/17 Fexofenadine/Pseudoephedrine 180 mg PO DAILY 02/12/17 02/15/17 [Ora-D 24 Hour Tablet] Fluticasone [Flonase] 1 inh INH BID 02/12/17 02/15/17 Nitroglycerin [Nitrostat] 0.4 mg PO Q1HR PRN 02/12/17 02/15/17 Trazodone HCl 50 mg PO DAILY 02/12/17 02/15/17 Nystatin [Nystop] 0 gm TOP BID 02/14/17 02/14/17 Silver Sulfadiazine [Ssd] 20 gm TP DAILY 02/14/17 02/15/17 Tramadol HCl 50 mg PO Q6H PRN 02/15/17 02/15/17 Amox/Clav 875/125 [Augmentin 1 tab PO BID #20 tablet 02/19/17 875/125] Nystatin Cream [Mycostatin Cream] 1 applic TOP BID #6 tube 02/19/17 - PHYSICAL EXAM AT DISCHARGE General Appearance: positive: No acute distress, Alert. negative: Lethargic Eyes Bilateral: positive: Normal inspection, PERRL, EOMI, No lid inflammation, Conjunctivae nml ENT: positive: ENT inspection nml, Pharynx nml, No signs of dehydration. negative: Purulent nasal drainage, Pharyngeal erythema, Oral lesions Neck: positive: Nml inspection, Thyroid nml, Trachea midline. negative: Thyromegaly, Lymphadenopathy (R), Lymphadenopathy (L), Stiff neck, Swelling/ bruising, Tracheal deviation Respiratory: positive: Chest non-tender, No respiratory distress, Breath sounds nml. negative: Wheezes, Rales, Rhonchi Cardiovascular: positive: Regular rate & rhythm, No murmur. negative: Irregularly irregular, Extrasystoles, Tachycardia, Bradycardia, Systolic murmur Peripheral Pulses: positive: 2+ Abdomen: positive: Non-tender, Nml bowel sounds. negative: Tenderness, Guarding , Rebound Back: negative: Nml inspection, CVA tenderness (R), CVA tenderness (L) Skin: positive: Warm, Dry, Skin rash, Other (wound infection at right lower extremity). negative: Cyanosis, Diaphoresis, Pallor Extremities: positive: Full ROM, Pedal edema. negative: Calf tenderness, Ana Luisa' s sign/cords Neurologic/Psychiatric: positive: Oriented x3, Sensation nml. negative: Sensory loss, Facial droop, Slurred/abnml speech, Depressed mood/affect - LABS Result Diagrams: 02/19/17 05:24 02/19/17 05:24 - DIAGNOSTIC IMAGING Diagnostic Imaging Results: Final report reviewed Diagnostic Imaging Results Comments: pt had CT of right lower extremity, reveals moderate edema, cellulitis and dependent edema, no abscess, no edema or fluid in the muscle or fascial spaces. - FOLLOW UP Follow Up: pt is advised to follow up PCP in one week, and see infection disease doctor in two weeks. Pt is resumed home health RN for evaluation, treatment and dressing changing, and with PT and OT's evaluation and treatment. pt reported he had a caregiver as he needs. Pt is prescribed po antibiotics. Nystatin topic cream as needed. Pt is advised for medical compliant. Pt request to be D/C to home today. Pt is also advised his medical condition is poor, can be deteriorated, Should his symptoms return or worsen, call 911 or go to the nearest emergence depart to seek help. pt is welcomed to our service as needed. - TIME SPENT Time Spent in Discharge (Minutes): 50"
[2017-02-19 14:05] VITALS: BP 110/66
--- NOTE | 2017-02-20 11:13 | CONSULTATION NOTE ---
Referring Provider Name of Referring Provider:: Evelio Maldonado Consult Date: 02/20/17 Chief Complaint - Chief Complaint Chief Complaint: replacement History of Present Illness - Admitted From Admitted From:: emergenece department - History Obtained From History obtained from: patient - History of Present Illness HPI Comment/Other: This is the patient I discharged on yesterday. Patient's chief complaint on last admission was the cellulitis for right lower extremity. Patient was provided a nurse facility for him on yesterday, but unfortunately patient refused. Patient only went to home on yesterday. Patient come back emergence room today. and requests to go to nurse facility. Patient had BMI 50, has a long period of history of venous stasis with ulcer and cellulitis which needs wound dressing frequently, and history of CHF, and Afib and other medical conditions. Patient is high risk for fall. I am consulted for facilitation of this process. History - Past Medical History Cardiovascular: reports: Atrial fibrillation, [place], Angina, Congestive heart failure, Peripheral Vascular Disease, Hypertension Neuro: reports: None Endocrine/Autoimmune: reports: None GI: reports: None : reports: Chronic bladder infection, Indwelling catheter HEENT: reports: Glaucoma Psych: reports: None Musculoskeletal: reports: Rheumatoid arthritis, Gout, Fatigue Derm: reports: Other MRSA Hx?: No Other Past Medical History: B shoulder rotator cuff tears w/pain; not surgery candidate; chronic pain. - Past Surgical History HEENT: reports: Cataracts - Family & Social History Living arrangement: At home Living Situation: Alone (concerns related to failure to thrive at home expressed by nurses, I am in agreement after last home visit) - POLST Patient has POLST: Yes Meds/Allgy - Home Medications Home Medications: Ambulatory Orders Medication Instructions Recorded Confirmed Allopurinol 300 mg PO DAILY 09/22/12 02/15/17 Spironolactone 100 mg PO DAILY 01/26/16 02/15/17 Hydrocodone/Acetaminophen 1 tab PO Q4HR PRN 07/20/16 02/15/17 [Hydrocodon-Acetaminophn 10-325] Furosemide [Lasix] 120 mg PO DAILY 10/09/16 02/15/17 Potassium Chloride [Klor-Con M20] 20 meq PO TID 10/09/16 02/15/17 Aspirin [Aspirin EC] 81 mg PO DAILY 02/12/17 02/15/17 Fexofenadine/Pseudoephedrine 180 mg PO DAILY 02/12/17 02/15/17 [Ora-D 24 Hour Tablet] Fluticasone [Flonase] 1 inh INH BID 02/12/17 02/15/17 Nitroglycerin [Nitrostat] 0.4 mg PO Q1HR PRN 02/12/17 02/15/17 Trazodone HCl 50 mg PO DAILY 02/12/17 02/15/17 Nystatin [Nystop] 0 gm TOP BID 02/14/17 02/14/17 Silver Sulfadiazine [Ssd] 20 gm TP DAILY 02/14/17 02/15/17 Tramadol HCl 50 mg PO Q6H PRN 02/15/17 02/15/17 Amox/Clav 875/125 [Augmentin 1 tab PO BID #20 tablet 02/19/17 875/125] Nystatin Cream [Mycostatin Cream] 1 applic TOP BID #6 tube 02/19/17 - Allergies Allergies/Adverse Reactions: Allergies Allergy/AdvReac Type Severity Reaction Status Date / Time cephalexin monohydrate * Allergy Severe Anaphylaxis Verified 02/20/17 06:44 [From [facility]] nitrofurantoin Allergy Mild Rash Verified 02/20/17 06:44 lorazepam Allergy Unknown UNKNOWN Verified 02/20/17 06:44 Review of Systems - Constitutional Constitutional: denies: Fever, Chills, Poor appetite, Diaphoresis, Night sweats - Eyes Eyes: denies: Pain, Irritation, Blurred vision, Spots in vision, Field loss, Vision loss, Dipolpia - Ears, Nose & Throat Ears, Nose & Throat: denies: Ear pain, Hearing loss, Hearing aids, Tinnitus, Vertigo, Nosebleeds, Nasal congestion, Sore throat, Hoarseness, Bleeding gums - Cardiovascular Cariovascular: denies: Irregular heart rate, Palpitations, Chest pain, Lightheadedness, Syncope, Exertional dyspnea - Respiratory Respiratory: denies: Cough, Sputum production, Wheezing, Snoring, Hemoptysis, Orthopnea, SOB at rest - Gastrointestinal Gastrointestinal: denies: Abdominal pain, Abdominal distention, Constipation, Rectal bleeding, Black stools, Nausea, Vomiting, Prasanna blood emesis, Coffee grounds emesis - Genitourinary Genitourinary: denies: Dysuria, Frequency, Hematuria, Incontinence, Flank pain - Musculoskeletal Musculoskeletal: denies: Muscle pain, Stiffness, Joint pain - Integumentary Integumentary: reports: Rash. denies: Pruritis, Pigment changes - Neurological Neurological: denies: Focal weakness, Headache, Seizures, Incoordination, Slurred speech - Psychiatric Psychiatric: denies: Depression, Anxiety, Suicidal, Delusions, Hallucinations, Homicidal - Endocrine Endocrine: denies: Polyuria, Polydypsia - Hematologic/Lymphatic Hematologic/Lymphatic: reports: Bruising, Recurrent infections. denies: Lymphadenopathy, Bleeding tendencies Exam - Vital Signs Reviewed Vital Signs: Yes - Physical Exam General Appearance: positive: No acute distress, Alert. negative: Lethargic Eyes Bilateral: positive: Normal inspection, PERRL, No lid inflammation, Conjunctivae nml ENT: positive: ENT inspection nml, Pharynx nml, No signs of dehydration. negative: Purulent nasal drainage, Pharyngeal erythema, Oral lesions Neck: positive: Nml inspection, Thyroid nml, No JVD, Trachea midline. negative : Thyromegaly, Lymphadenopathy (R), Lymphadenopathy (L), Stiff neck, Swelling/ bruising, Tracheal deviation Respiratory: positive: Chest non-tender, No respiratory distress, Breath sounds nml. negative: Wheezes, Rales, Rhonchi Cardiovascular: positive: Regular rate & rhythm, No murmur, No gallop. negative : Tachycardia, Bradycardia, Systolic murmur, Diastolic murmur Peripheral Pulses: positive: 2+ Abdomen: positive: Non-tender, No organomegaly, Nml bowel sounds, No distention. negative: Tenderness, Guarding, Rebound Back: positive: Nml inspection. negative: CVA tenderness (R), CVA tenderness (L ) Skin: positive: Warm, Dry, Skin rash, Laceration (cm). negative: Diaphoresis, Pallor Extremities: positive: Non-tender, Full ROM. negative: Calf tenderness, Naa Luisa' s sign/cords Neurologic/Psychiatric: positive: Oriented x3, Mood/affect nml. negative: Sensory loss, Facial droop, Slurred/abnml speech, Depressed mood/affect Conclusion/Plan - Plan Plan: With lining caser and other produce team lead to work together, we do find a nurse facility for patient. Patient is advise to see PCP and infection disease doctor in one to two weeks, continue wound dressing, have the evaluation of and treatment from PT and OT. All patient's questions are answered. Thank the consulting, and patient is welcomed to our service as needed. - Lab Results Lab results reviewed: Yes Fish Bones: 02/19/17 05:24 02/19/17 05:24
== END 2017-02-19 13:30 | disposition home or self-care (01) | DRG 603 ==
LOC: EDUNIT# → ED 11:58 → MS2 15:31
PROVIDERS: ADMIT Nurse Practitioner; ATTEND Nurse Practitioner Gerontology
DX: L03.115 Cellulitis of right lower limb (principal); L98.499 Non-pressure chronic ulcer of skin of other sites with unspecified severity; I13.0 Hypertensive heart and chronic kidney disease with heart failure and stage 1 through stage 4 chronic kidney disease, or unspecified chronic kidney disease; L97.211 Non-pressure chronic ulcer of right calf limited to breakdown of skin; I11.0 Hypertensive heart disease with heart failure; Z68.43 Body mass index [BMI] 50.0-59.9, adult; I48.91 Unspecified atrial fibrillation; E87.1 Hypo-osmolality and hyponatremia; I83.012 Varicose veins of right lower extremity with ulcer of calf; R23.8 Other skin changes; E66.01 Morbid (severe) obesity due to excess calories; I50.9 Heart failure, unspecified; Z68.42 Body mass index [BMI] 45.0-49.9, adult; I48.2 Chronic atrial fibrillation; N18.3 Chronic kidney disease, stage 3 (moderate); I20.9 Angina pectoris, unspecified; I73.9 Peripheral vascular disease, unspecified; M06.9 Rheumatoid arthritis, unspecified; M10.9 Gout, unspecified; G89.29 Other chronic pain; M19.012 Primary osteoarthritis, left shoulder; M19.011 Primary osteoarthritis, right shoulder; F32.9 Major depressive disorder, single episode, unspecified; R62.7 Adult failure to thrive; K59.03 Drug induced constipation; T40.2X5D Adverse effect of other opioids, subsequent encounter; R19.5 Other fecal abnormalities; T36.95XA Adverse effect of unspecified systemic antibiotic, initial encounter; Y92.230 Patient room in hospital as the place of occurrence of the external cause; I25.2 Old myocardial infarction; Z66 Do not resuscitate; Z51.5 Encounter for palliative care; Z16.24 Resistance to multiple antibiotics; Z60.2 Problems related to living alone; Z96.0 Presence of urogenital implants; Z91.19 Patient's noncompliance with other medical treatment and regimen; Z91.81 History of falling; Z74.01 Bed confinement status; Z87.440 Personal history of urinary (tract) infections; Z79.82 Long term (current) use of aspirin; Z79.891 Long term (current) use of opiate analgesic; Z88.1 Allergy status to other antibiotic agents
CPT/HCPCS: 36415; 71020; 80048; 80053; 83605; 83690; 83735; 83880; 84484; 85025; 87040; 87070; 87205; 93005; 96365; 99233; 99284; 99285

== ENCOUNTER 2017-02-19 13:26 | Outpatient (CLI) | payer MEDICARE | END 2017-02-19 13:27 | disposition home or self-care (01) | LOC: EMS 13:26 | PROVIDERS: ATTEND Surgery | DX: L03.116 Cellulitis of left lower limb (principal); L03.115 Cellulitis of right lower limb; R53.1 Weakness; I50.9 Heart failure, unspecified; E66.01 Morbid (severe) obesity due to excess calories | CPT/HCPCS: A0425; A0428 ==

== ENCOUNTER 2017-02-20 06:17 | Outpatient (CLI) | payer MEDICARE | END 2017-02-20 06:18 | disposition critical access hospital (66) | LOC: EMS 06:17 | PROVIDERS: ATTEND Surgery | DX: R53.1 Weakness (principal) | CPT/HCPCS: A0425; A0429 ==

== ENCOUNTER 2017-02-20 06:37 | Emergency (ER) | payer MEDICARE ==
--- NOTE | 2017-02-20 08:16 | ED Physician Documentation ---
History of Present Illness - Stated complaint Stated Complaint: WOUND CARE - Chief complaint Chief Complaint: General - History obtained from History obtained from: Patient - History of Present Illness Timing: How many weeks ago (8) - Additonal information Additional information: 71-year-old male with morbid obesity and peripheral vascular disease as well as A. fib and CHF has been recently admitted into the hospital for care of cellulitis to his lower extremities. He was found to be extremely weak and transfer to a detention facility was sought at the time of his discharge and the patient refused. He went home and has failed a trial of home treatment. He lives alone and is not able to care for himself at all.He has ongoing needs for wound care and treatment of cellulitis. Review of Systems Constitutional: reports: Myalgias, Fatigue. denies: Fever, Chills Eyes: denies: Decreased vision Ears: denies: Ear pain Nose: denies: Congestion Throat: denies: Sore throat Cardiac: denies: Chest pain / pressure, Palpitations Respiratory: denies: Dyspnea, Cough GI: reports: Abdominal Pain. denies: Nausea, Vomiting : denies: Dysuria, Frequency Skin: denies: Rash Musculoskeletal: reports: Extremity pain, Extremity swelling. denies: Neck pain , Back pain Neurologic: reports: Generalized weakness. denies: Focal weakness, Numbness PD PAST MEDICAL HISTORY - Past Medical History Past Medical History: Yes Cardiovascular: Atrial fibrillation, [place], Angina, Congestive heart failure, Peripheral Vascular Disease, Hypertension Neuro: None Endocrine/Autoimmune: None GI: None : Chronic bladder infection, Indwelling catheter HEENT: Glaucoma Psych: None Musculoskeletal: Rheumatoid arthritis, Gout, Fatigue Derm: Other - Past Surgical History Past Surgical History: Yes HEENT: Cataracts - Present Medications Home Medications: Ambulatory Orders Medication Instructions Recorded Confirmed Allopurinol 300 mg PO DAILY 09/22/12 02/15/17 Spironolactone 100 mg PO DAILY 01/26/16 02/15/17 Hydrocodone/Acetaminophen 1 tab PO Q4HR PRN 07/20/16 02/15/17 [Hydrocodon-Acetaminophn 10-325] Furosemide [Lasix] 120 mg PO DAILY 10/09/16 02/15/17 Potassium Chloride [Klor-Con M20] 20 meq PO TID 10/09/16 02/15/17 Aspirin [Aspirin EC] 81 mg PO DAILY 02/12/17 02/15/17 Fexofenadine/Pseudoephedrine 180 mg PO DAILY 02/12/17 02/15/17 [Ora-D 24 Hour Tablet] Fluticasone [Flonase] 1 inh INH BID 02/12/17 02/15/17 Nitroglycerin [Nitrostat] 0.4 mg PO Q1HR PRN 02/12/17 02/15/17 Trazodone HCl 50 mg PO DAILY 02/12/17 02/15/17 Nystatin [Nystop] 0 gm TOP BID 02/14/17 02/14/17 Silver Sulfadiazine [Ssd] 20 gm TP DAILY 02/14/17 02/15/17 Tramadol HCl 50 mg PO Q6H PRN 02/15/17 02/15/17 Amox/Clav 875/125 [Augmentin 1 tab PO BID #20 tablet 02/19/17 875/125] Nystatin Cream [Mycostatin Cream] 1 applic TOP BID #6 tube 02/19/17 - Allergies Allergies/Adverse Reactions: Allergies Allergy/AdvReac Type Severity Reaction Status Date / Time cephalexin monohydrate * Allergy Severe Anaphylaxis Verified 02/20/17 06:44 [From Keflex] nitrofurantoin Allergy Mild Rash Verified 02/20/17 06:44 lorazepam Allergy Unknown UNKNOWN Verified 02/20/17 06:44 - Social History Does the pt smoke?: No Smoking Status: Never smoker Does the pt drink ETOH?: No Does the pt have substance abuse?: No - Immunizations Immunizations are current?: Yes - POLST Patient has POLST: Yes PD ED PE NORMAL - Vitals Vital signs reviewed: Yes (normal ) - General General: No acute distress, Well developed/nourished - HEENT HEENT: Atraumatic, PERRL, EOMI - Neck Neck: Supple, no meningeal sign - Cardiac Cardiac: No murmur, Other (irregularly irregular) - Respiratory Respiratory: No respiratory distress, Clear bilaterally - Abdomen Abdomen: Soft, Non tender, Other (obese ) - Back Back: No CVA TTP, No spinal TTP - Derm Derm: Warm and dry, Other (There is hyperpigmentation to many areas of the extremeties that have had inflamation present. ) - Extremities Extremities: Other (There is marked edema bilaterally to the LE with post inflamitory hyperpigmentation. There is an area of granulating tissue on the right thigh from a recently drained blister that is healing. There is an active blister on the posaterior aspect of the right medial calf. ) - Neuro Neuro: No motor deficit, No sensory deficit - Psych Psych: Normal mood, Normal affect Results - Vitals Vitals: Vital Signs - 24 hr 02/20/17 02/20/17 06:38 11:28 Temperature 36 C L 36.0 C L Heart Rate 93 80 Respiratory 20 17 Rate Blood Pressure 95/60 107/58 L O2 Saturation 100 100 Oxygen O2 Source Room air - Labs Labs: Laboratory Tests 02/20/17 02/20/17 02/20/17 08:22 08:22 08:22 WBC 6.9 RBC 2.76 L Hgb 8.8 L Hct 26.1 L MCV 94.9 H MCH 31.9 H MCHC 33.7 RDW 18.8 H Plt Count 88 L MPV 9.2 Neut # 5.9 Lymph # 0.5 L Jennings # 0.3 Eos # 0.3 Baso # 0.0 Absolute Nucleated RBC 0.00 Nucleated RBC % 0.0 Sodium 129 L Potassium 4.6 Chloride 97 L Carbon Dioxide 19 L Anion Gap 13.0 BUN 62 H Creatinine 1.9 H Estimated GFR (MDRD) 35 L Glucose 112 H Calcium 9.1 Total Bilirubin 1.0 AST 28 ALT 33 Alkaline Phosphatase 195 H Troponin I 0.04 Total Protein 7.5 Albumin 3.6 Globulin 3.9 Albumin/Globulin Ratio 0.9 L Lipase 49 Urine Color Urine Clarity Urine pH Ur Specific [place] Urine Protein Urine Glucose (UA) Urine Ketones Urine Occult Blood Urine Nitrite Urine Bilirubin Urine Urobilinogen Ur Leukocyte Esterase Urine RBC Urine WBC Urine WBC Clumps Ur Squamous Epith Cells Urine Bacteria Urine Yeast Ur Microscopic Review Urine Culture Comments 02/20/17 08:25 WBC RBC Hgb Hct MCV MCH MCHC RDW Plt Count MPV Neut # Lymph # Jennings # Eos # Baso # Absolute Nucleated RBC Nucleated RBC % Sodium Potassium Chloride Carbon Dioxide Anion Gap BUN Creatinine Estimated GFR (MDRD) Glucose Calcium Total Bilirubin AST ALT Alkaline Phosphatase Troponin I Total Protein Albumin Globulin Albumin/Globulin Ratio Lipase Urine Color YELLOW Urine Clarity SL. CLOUDY Urine pH 5.5 Ur Specific [place] 1.020 Urine Protein NEGATIVE Urine Glucose (UA) NEGATIVE Urine Ketones NEGATIVE Urine Occult Blood SMALL H Urine Nitrite NEGATIVE Urine Bilirubin NEGATIVE Urine Urobilinogen 0.2 (NORMAL) Ur Leukocyte Esterase SMALL H Urine RBC 6-10 H Urine WBC >25 H Urine WBC Clumps PRESENT Ur Squamous Epith Cells RARE Squamous Urine Bacteria Moderate H Urine Yeast PRESENT Ur Microscopic Review INDICATED Urine Culture Comments INDICATED Procedures - IVC sono (time) 0750 Bedside IVC sono: IVC measures (cm) (4.5), High CVP PD MEDICAL DECISION MAKING - ED course Complexity details: reviewed old records, reviewed results, re-evaluated patient , considered differential, d/w patient, d/w family ED course: 71-year-old male with a recent admission for cellulitis has failed an outpatient. He is not able to care for himself at home secondary to morbid obesity and excessive lower extremity edema.He was scheduled to be discharged to a detention facility from the hospital yesterday and the patient refused this and he has now failed an outpatient trial. He does have a generous IVC about 4.5cm. Departure - Departure Disposition: 01 Home, Self Care Clinical Impression: Bilateral edema of lower extremity, Hyponatremia, Morbid obesity Cellulitis Qualifiers: Site of cellulitis: extremity Site of cellulitis of extremity: lower extremity Laterality: right Qualified Code(s): L03.115 - Cellulitis of right lower limb Condition: Stable Discharge Date/Time: 02/20/17 15:53
[2017-02-20 08:33] LABS: BILIRUBIN,URINE NEGATIVE (NEGATIVE); PH,URINE 5.5 PH (5.0-7.5)
[2017-02-20 08:33] LABS: BASOPHILS % (AUTO) 0.4 %; EOSINOPHILS # (AUTO) 0.3 10^3/uL (0.0-0.7); EOSINOPHILS % (AUTO) 3.7 %; HCT - HEMATOCRIT 26.1 % (42.0-52.0); HGB - HEMOGLOBIN 8.8 g/dL (14.0-18.0); LYMPHOCYTES # (AUTO) 0.5 10^3/uL (1.5-3.5); LYMPHOCYTES % (AUTO) 6.6 %; MEAN CORPUSCULAR HEMOGLOBIN 31.9 pg (27.0-31.0); MEAN CORPUSCULAR HGB CONC 33.7 g/dL (32.0-36.0); MEAN CORPUSCULAR VOLUME 94.9 fL (80.0-94.0); MEAN PLATELET VOLUME 9.2 fL (7.4-11.4); MONOCYTES # (AUTO) 0.3 10^3/uL (0.0-1.0); MONOCYTES % (AUTO) 4.1 %; NEUTROPHILS # (AUTO) 5.9 10^3/uL (1.5-6.6); NEUTROPHILS % (AUTO) 85.2 %; RED BLOOD COUNT 2.76 10^6/uL (4.70-6.10); RED CELL DISTRIBUTION WIDTH 18.8 % (12.0-15.0); UNCORRECTED WHITE BLOOD COUNT 6.9 x10^3/uL; WHITE BLOOD COUNT 6.9 x10^3/uL (4.8-10.8)
[2017-02-20 08:34] LABS: UA w/ MICROSCOPIC CHARGE YES
[2017-02-20 08:42] LABS: UR CULTURE IF IND INDICATED; WBC,URINE >25 /HPF (0-3)
[2017-02-20 08:45] LABS: ALBUMIN/GLOBULIN RATIO 0.9 (1.0-2.2); CALCIUM 9.1 mg/dL (8.5-10.3); CREATININE 1.9 mg/dL (0.6-1.2); POTASSIUM 4.6 mmol/L (3.5-5.0); TOTAL PROTEIN 7.5 g/dL (6.7-8.2)
--- NOTE | 2017-02-20 11:13 | CONSULTATION NOTE ---
Referring Provider Name of Referring Provider:: Evelio Maldonado Consult Date: 02/20/17 Chief Complaint - Chief Complaint Chief Complaint: replacement History of Present Illness - Admitted From Admitted From:: emergenece department - History Obtained From History obtained from: patient - History of Present Illness HPI Comment/Other: This is the patient I discharged on yesterday. Patient's chief complaint on last admission was the cellulitis for right lower extremity. Patient was provided a nurse facility for him on yesterday, but unfortunately patient refused. Patient only went to home on yesterday. patient was advised on yesterday his medical condition is poor, and can deteriorate, but patient still request to be discharged to home. Patient refused to have peripheral IV and PICC line in this hospital course as well. Patient agreed to be discharged to nurse facility, agreed to have PICC line before we set up for him, but when we found a nurse facility to him and tried to do PICC line to him, unfortunately patient refused. Patient come back emergence room today, and requests to go to a nurse facility. Patient had a BMI 46, has a long period of history of venous stasis with ulcer and cellulitis which needs wound dressing frequently, and history of CHF, and Afib and other medical conditions. Patient is advise he is high risk for fall. Patient state to me he refuse to stay this hospital any more for further evaluation and treatment when I interview him today, " I just want to go to a nurse home." I am consulted by Dr. Evelio Erazo, and our social and cyanide case hardener team for facilitation of this process to Nurse facility. History - Past Medical History Cardiovascular: reports: Atrial fibrillation, [place], Angina, Congestive heart failure, Peripheral Vascular Disease, Hypertension Neuro: reports: None Endocrine/Autoimmune: reports: None GI: reports: None : reports: Chronic bladder infection, Indwelling catheter HEENT: reports: Glaucoma Psych: reports: None Musculoskeletal: reports: Rheumatoid arthritis, Gout, Fatigue Derm: reports: Other MRSA Hx?: No Other Past Medical History: B shoulder rotator cuff tears w/pain; not surgery candidate; chronic pain. - Past Surgical History HEENT: reports: Cataracts - Family & Social History Living arrangement: At home Living Situation: Alone (concerns related to failure to thrive at home expressed by nurses, I am in agreement after last home visit) - POLST Patient has POLST: Yes Meds/Allgy - Home Medications Home Medications: Ambulatory Orders Medication Instructions Recorded Confirmed Allopurinol 300 mg PO DAILY 09/22/12 02/15/17 Spironolactone 100 mg PO DAILY 01/26/16 02/15/17 Hydrocodone/Acetaminophen 1 tab PO Q4HR PRN 07/20/16 02/15/17 [Hydrocodon-Acetaminophn 10-325] Furosemide [Lasix] 120 mg PO DAILY 10/09/16 02/15/17 Potassium Chloride [Klor-Con M20] 20 meq PO TID 10/09/16 02/15/17 Aspirin [Aspirin EC] 81 mg PO DAILY 02/12/17 02/15/17 Fexofenadine/Pseudoephedrine 180 mg PO DAILY 02/12/17 02/15/17 [Ora-D 24 Hour Tablet] Fluticasone [Flonase] 1 inh INH BID 02/12/17 02/15/17 Nitroglycerin [Nitrostat] 0.4 mg PO Q1HR PRN 02/12/17 02/15/17 Trazodone HCl 50 mg PO DAILY 02/12/17 02/15/17 Nystatin [Nystop] 0 gm TOP BID 02/14/17 02/14/17 Silver Sulfadiazine [Ssd] 20 gm TP DAILY 02/14/17 02/15/17 Tramadol HCl 50 mg PO Q6H PRN 02/15/17 02/15/17 Amox/Clav 875/125 [Augmentin 1 tab PO BID #20 tablet 02/19/17 875/125] Nystatin Cream [Mycostatin Cream] 1 applic TOP BID #6 tube 02/19/17 - Allergies Allergies/Adverse Reactions: Allergies Allergy/AdvReac Type Severity Reaction Status Date / Time cephalexin monohydrate * Allergy Severe Anaphylaxis Verified 02/20/17 06:44 [From Keflex] nitrofurantoin Allergy Mild Rash Verified 02/20/17 06:44 lorazepam Allergy Unknown UNKNOWN Verified 02/20/17 06:44 Review of Systems - Constitutional Constitutional: denies: Fever, Chills, Poor appetite, Diaphoresis, Night sweats - Eyes Eyes: denies: Pain, Irritation, Blurred vision, Spots in vision, Field loss, Vision loss, Dipolpia - Ears, Nose & Throat Ears, Nose & Throat: denies: Ear pain, Hearing loss, Hearing aids, Tinnitus, Vertigo, Nosebleeds, Nasal congestion, Sore throat, Hoarseness, Bleeding gums - Cardiovascular Cariovascular: denies: Irregular heart rate, Palpitations, Chest pain, Lightheadedness, Syncope, Exertional dyspnea - Respiratory Respiratory: denies: Cough, Sputum production, Wheezing, Snoring, Hemoptysis, Orthopnea, SOB at rest - Gastrointestinal Gastrointestinal: denies: Abdominal pain, Abdominal distention, Constipation, Rectal bleeding, Black stools, Nausea, Vomiting, Prasanna blood emesis, Coffee grounds emesis - Genitourinary Genitourinary: denies: Dysuria, Frequency, Hematuria, Incontinence, Flank pain - Musculoskeletal Musculoskeletal: denies: Muscle pain, Stiffness, Joint pain - Integumentary Integumentary: reports: Rash. denies: Pruritis, Pigment changes - Neurological Neurological: denies: Focal weakness, Headache, Seizures, Incoordination, Slurred speech - Psychiatric Psychiatric: denies: Depression, Anxiety, Suicidal, Delusions, Hallucinations, Homicidal - Endocrine Endocrine: denies: Polyuria, Polydypsia - Hematologic/Lymphatic Hematologic/Lymphatic: reports: Bruising, Recurrent infections. denies: Lymphadenopathy, Bleeding tendencies Exam - Vital Signs Reviewed Vital Signs: Yes - Physical Exam General Appearance: positive: No acute distress, Alert. negative: Lethargic Eyes Bilateral: positive: Normal inspection, PERRL, No lid inflammation, Conjunctivae nml ENT: positive: ENT inspection nml, Pharynx nml, No signs of dehydration. negative: Purulent nasal drainage, Pharyngeal erythema, Oral lesions Neck: positive: Nml inspection, Thyroid nml, No JVD, Trachea midline. negative : Thyromegaly, Lymphadenopathy (R), Lymphadenopathy (L), Stiff neck, Swelling/ bruising, Tracheal deviation Respiratory: positive: Chest non-tender, No respiratory distress, Breath sounds nml. negative: Wheezes, Rales, Rhonchi Cardiovascular: positive: Regular rate & rhythm, No murmur, No gallop. negative : Tachycardia, Bradycardia, Systolic murmur, Diastolic murmur Peripheral Pulses: positive: 2+ Abdomen: positive: Non-tender, No organomegaly, Nml bowel sounds, No distention. negative: Tenderness, Guarding, Rebound Back: positive: Nml inspection. negative: CVA tenderness (R), CVA tenderness (L ) Skin: positive: Warm, Dry, Skin rash, Laceration (cm). negative: Diaphoresis, Pallor Extremities: positive: Non-tender, Full ROM. negative: Calf tenderness, Ana Luisa' s sign/cords Neurologic/Psychiatric: positive: Oriented x3, Mood/affect nml. negative: Sensory loss, Facial droop, Slurred/abnml speech, Depressed mood/affect Conclusion/Plan - Plan Plan: With cyanide case hardener and social residential team leader to work hardly together, we do find a nurse facility for patient. Patient is advise to see PCP and infection disease doctor in one and two weeks, respectively, continue to have wound dressing, continue to have the evaluation of and treatment from PT and OT. All patient's questions are answered. Thank the consulting. patient is welcomed to our service as needed. - Lab Results Lab results reviewed: Yes Fish Bones: 02/20/17 08:22 02/20/17 08:22
[2017-02-20 11:28] VITALS: BP 107/58
[2017-02-20] MEDS ORDERED: SODIUM CHLORIDE FLUSH 0.9% 10 ML SYRINGE IVP ONE (12:23)
[2017-02-20] MEDS ORDERED: LIDOCAINE JELLY 2% 5 ML TUBE TOP ONE (12:23)
== END 2017-02-20 15:53 | disposition home or self-care (01) ==
LOC: EDUNIT# → ED 06:37
DX: L03.115 Cellulitis of right lower limb (principal); R60.0 Localized edema; E87.1 Hypo-osmolality and hyponatremia; E66.01 Morbid (severe) obesity due to excess calories; I73.9 Peripheral vascular disease, unspecified; I48.91 Unspecified atrial fibrillation; I11.0 Hypertensive heart disease with heart failure; I50.9 Heart failure, unspecified; I25.2 Old myocardial infarction; I20.9 Angina pectoris, unspecified; M06.9 Rheumatoid arthritis, unspecified; M10.9 Gout, unspecified; Z79.82 Long term (current) use of aspirin
CPT/HCPCS: 36415; 80053; 81001; 83690; 84484; 85025; 87077; 87086; 87181; 99283; 99284; J3490; 81003